=== PATIENT | male | born 1960 | race Caucasian/White ===

== ENCOUNTER 2024-09-13 14:10 | Inpatient (IN) ==
--- NOTE | 2024-09-13 14:44 | DR.SOBA ---
HPI Time Seen Time Seen by Provider: 09/13/24 14:44 HPI Comment HPI Comment: Patient with complaint of shortness of breath and feeling weak since . Worsening and family forced him to come into the ER. COVID-19 Coronavirus risk:travel/contact w/high risk person: No Has patient experienced Coronavirus symptoms: No PMH Travel Risk Coronavirus risk:travel/contact w/high risk person: No Has patient experienced Coronavirus symptoms: No ROS Review of Systems Constitutional: No Symptoms Reported Eyes: No Symptoms Reported ENTM: No Symptoms Reported Respiratoy: See HPI Cardiovascular: No Symptoms Reported Gastrointestinal/Abdominal: No Symptoms Reported Genitourinary: No Symptoms Reported Neurological: No Symptoms Reported Musculoskeletal: No Symptoms Reported Integumentary: No Symptoms Reported Hematologic/Lymphatic: No Symptoms Reported Endocrine: No Symptoms Reported Psychiatric: No Symptoms Reported All Other Systems: Reviewed and Negative PE Vital Signs Vitals: Vital Signs Temperature 98.1 F Pulse Rate 132 Pulse Rate 130 Pulse Rate 130 Pulse Rate 129 Pulse Rate 125 Pulse Rate 128 Pulse Rate 127 Pulse Rate 120 Pulse Rate 131 Pulse Rate 116 Pulse Rate 106 Pulse Rate 125 Pulse Rate 134 Pulse Rate 88 Pulse Rate 87 Pulse Rate 86 Pulse Rate 111 Pulse Rate 125 Pulse Rate 106 Respiratory Rate 29 Respiratory Rate 32 Respiratory Rate 28 Respiratory Rate 23 Respiratory Rate 27 Respiratory Rate 38 Respiratory Rate 22 Respiratory Rate 16 Respiratory Rate 18 Respiratory Rate 22 Respiratory Rate 29 Respiratory Rate 26 Respiratory Rate 29 Respiratory Rate 31 Respiratory Rate 31 Respiratory Rate 28 Respiratory Rate 34 Respiratory Rate 24 Blood Pressure 105/68 Blood Pressure 120/71 Blood Pressure 127/82 Blood Pressure 127/82 Blood Pressure 124/67 Blood Pressure 127/60 Blood Pressure 143/64 Blood Pressure 133/73 O2 Sat by Pulse Oximetry 96 O2 Sat by Pulse Oximetry 96 O2 Sat by Pulse Oximetry 94 O2 Sat by Pulse Oximetry 96 O2 Sat by Pulse Oximetry 95 O2 Sat by Pulse Oximetry 86 O2 Sat by Pulse Oximetry 95 O2 Sat by Pulse Oximetry 90 O2 Sat by Pulse Oximetry 99 O2 Sat by Pulse Oximetry 99 O2 Sat by Pulse Oximetry 100 O2 Sat by Pulse Oximetry 100 O2 Sat by Pulse Oximetry 100 O2 Sat by Pulse Oximetry 100 O2 Sat by Pulse Oximetry 100 O2 Sat by Pulse Oximetry 100 O2 Sat by Pulse Oximetry 100 O2 Sat by Pulse Oximetry 85 General Limitations: No Limitations General Appearance: Alert and In No Apparent Distress Head Head Exam: Normal Inspection Eyes Eye exam: Normal Appearance ENT ENT Exam: Normal Exam Neck Neck Exam: Normal Inspection Chest Chest Inspection: Normal Inspection Respiratory Respiratory Exam: Normal Lung Sounds Bilat Respiratory Exam: Right: Decreased Breath Sounds and Lower: Decreased Breath Sounds Cardiovascular Cardiovascular Exam: Regular Rate and Normal Rhythm Abdominal Exam Abdominal Exam: Normal Inspection, Normal Bowel Sounds and Soft Extremities Extremities Exam: Normal Inspection Back Back Exam: Normal Inspection Neurologic Neurological Exam: Alert and Oriented X3 Psychiatric Psychiatric Exam: Normal Affect and Normal Mood Skin Skin Exam: Warm, Dry, Intact and Normal Color COURSE Consultation Consultation Comments: Discussed case with Dr. Dumont. Due to decreased renal function and current cardiac status as well as the pneumonia, we will admit the patient and Dr. Dumont is agreeable. ROR Labs Reviewed 09/13/24 14:52 09/13/24 14:52 Laboratory: WBC 9.3 X10^3/uL (3.6-10.0) 09/13/24 14:52 RBC 3.98 X10^6/uL (4.7-6.0) L 09/13/24 14:52 Hgb 14.2 g/dL (13.5-18.0) 09/13/24 14:52 Hct 41.2 % (42.0-54.0) L 09/13/24 14:52 MCV 103.5 fL (80.0-100.0) H 09/13/24 14:52 MCH 35.8 pg (27.0-34.0) H 09/13/24 14:52 MCHC 34.5 g/dL (33.0-35.0) 09/13/24 14:52 RDW 14.6 % (11.6-16.5) 09/13/24 14:52 Plt Count 62 X10^3/uL (150.0-450.0) L 09/13/24 14:52 MPV 10.8 fL (7.4-11.0) 09/13/24 14:52 Neut % (Auto) 89.8 % (42.0-75.0) H 09/13/24 14:52 Lymph % (Auto) 6.9 % (21.0-51.0) L 09/13/24 14:52 [place] % (Auto) 2.8 % (0.0-13.0) 09/13/24 14:52 Eos % (Auto) 0.3 % (0.9-2.9) L 09/13/24 14:52 Baso % (Auto) 0.2 % (0.2-1.0) 09/13/24 14:52 Neut # (Auto) 8.3 x10^3/uL (2.2-4.8) H 09/13/24 14:52 Lymph # (Auto) 0.6 X10^3/uL (1.3-2.9) L 09/13/24 14:52 [place] # (Auto) 0.3 x10^3/uL (0.3-0.8) 09/13/24 14:52 Eos # (Auto) 0.0 x10^3/uL (0.0-0.2) 09/13/24 14:52 Baso # (Auto) 0.0 X10^3/uL (0.0-0.1) 09/13/24 14:52 Absolute Nucleated RBC 0.1 /100WBC 09/13/24 14:52 Sample Site Rr 09/13/24 15:26 ABG pH 7.570 (7.35-7.45) H* 09/13/24 15:26 ABG pCO2 26.0 mmHg (35.0-45.0) L 09/13/24 15:26 ABG pO2 65.0 mmHg (80.0-100.0) L 09/13/24 15:26 ABG HCO3 23.8 mmol/L (22-26) 09/13/24 15:26 ABG O2 Saturation 95.0 % (90-100) 09/13/24 15:26 ABG Base Excess 2.7 mmol/L (-2.0-2.0) H 09/13/24 15:26 Ziyad Test Pos 09/13/24 15:26 A-a Gradient 102.0 mmHg 09/13/24 15:26 FiO2 28.0 09/13/24 15:26 Blood Gas Comments Pt shivani well cdn 09/13/24 15:26 Sodium 126 mmol/L (136-145) L 09/13/24 14:52 Corrected Sodium 127 mmol/L (136-145) L 09/13/24 14:52 Potassium 3.6 mmol/L (3.5-5.1) 09/13/24 14:52 Chloride 87 mmol/L (98-107) L 09/13/24 14:52 Carbon Dioxide 29.1 mmol/L (21-32) 09/13/24 14:52 BUN 28 mg/dL (7-18) H 09/13/24 14:52 Creatinine 2.33 mg/dL (0.70-1.30) H 09/13/24 14:52 Est GFR (MDRD) Af Amer 36 (>60) L 09/13/24 14:52 Est GFR (MDRD) Non-Af 30 (>60) L 09/13/24 14:52 Glucose 157 mg/dL (65-99) H 09/13/24 14:52 Lactic Acid 2.3 mmol/L (0.4-2.0) H 09/13/24 17:08 Calcium 9.0 mg/dL (8.5-10.1) 09/13/24 14:52 Corrected Calcium 10.7 mg/dL (8.5-10.1) H 09/13/24 14:52 Magnesium 2.6 mg/dL (2.0-2.9) 09/13/24 14:52 Total Bilirubin 1.70 mg/dL (0.2-1.0) H 09/13/24 14:52 AST 241 Units/L (15-37) H 09/13/24 14:52 ALT 126 Units/L (12-78) H 09/13/24 14:52 Alkaline Phosphatase 84 Units/L (46-116) 09/13/24 14:52 C-Reactive Protein 323.90 mg/L (0-3.0) H 09/13/24 14:52 B-Natriuretic Peptide 246 pg/mL (0-79) H 09/13/24 14:52 Total Protein 7.5 g/dL (6.4-8.2) 09/13/24 14:52 Albumin 1.9 g/dL (3.4-5.0) L 09/13/24 14:52 Globulin 5.6 g/dL (2.5-4.5) H 09/13/24 14:52 Albumin/Globulin Ratio 0.3 Ratio (1.1-2.1) L 09/13/24 14:52 Specimen Type Clean catch urine 09/13/24 19:29 Urine Color Yellow (YELLOW) 09/13/24 19: Urine Appearance Hazy (CLEAR) 09/13/24 19: Urine pH 6.0 (5.0 - 8.0) 09/13/24 19: Ur Specific [place] 1.020 (1.000-1.030) 09/13/24 19: Urine Protein 3+ (NEGATIVE) 09/13/24 19: Urine Glucose (UA) Negative (NEGATIVE) 09/13/24 19: Urine Ketones Negative (NEGATIVE) 09/13/24 19: Urine Blood 5+ (NEGATIVE) 09/13/24 19: Urine Nitrite Negative (NEGATIVE) 09/13/24 19: Urine Bilirubin Negative (NEGATIVE) 09/13/24 19: Urine Urobilinogen 2+ (NORMAL) 09/13/24 19: Ur Leukocyte Esterase Negative (NEGATIVE) 09/13/24 19: Urine RBC 0-2 /HPF (0-3) 09/13/24 19: Urine WBC 0-2 /HPF (0-5) 09/13/24 19:29 Ur Squamous Epith Cells Rare /HPF (NEGATIVE) 09/13/24 19: Amorphous Sediment 1+ /HPF (NEGATIVE) 09/13/24 19: Urine Bacteria Trace /HPF (NEGATIVE) 09/13/24 19: Granular Casts Moderate /LPF (NEGATIVE) 09/13/24 19:29 Ur Culture Indicated? No/not indicated 09/13/24 19:29 SARS-CoV-2 (PCR) Negative (NEGATIVE) 09/13/24 14:56 Influenza Type A (PCR) Negative (NEGATIVE) 09/13/24 14:56 Influenza Type B (PCR) Negative (NEGATIVE) 09/13/24 14:56 RSV (PCR) Negative (NEGATIVE) 09/13/24 14:56 Opioid Opioid Risk Tool Age (Antwon box if 16-45): No History of Preadolescent Sexual Abuse: No Total: 0 Total Score Risk Category: Low Risk Copyright: Jerad MARIN predicting aberrant behaviors Discharge Plan Discharge Plan Patient Disposition: 01 HOME, SELF-CARE Condition: Stable Prescriptions: No Action atorvastatin 20 mg tablet 20 mg PO QPM aspirin 81 mg tablet,delayed release (DR/EC) 81 mg PO QDAY losartan 25 mg tablet 25 mg PO QDAY folic acid 1 mg tablet 1 mg PO QDAY dorzolamide-timolol 22.3-6.8 mg/mL drops 1 drp OPHTHALMIC (EYE) BID Health Concerns: Post Hospitalization: new medications and changes needed to prevent readmission or further decline. Pt educated and given instructions on all concerns. Plan of Treatment: Continue with present treatment and follow up plan. Pt is to keep follow up appointment as instructed and take medications as ordered. Follow ups/Referrals Follow ups/Referrals: Allan Shah MD [Primary Care Provider] - 3 days Instructions Stand Alone Forms: Find Help Web Site, Post Hospital Follow Up Care
[2024-09-13 15:07] LABS: BASOPHILS % (AUTO) 0.2 % (0.2-1.0); EOSINOPHILS % (AUTO) 0.3 % (0.9-2.9); HEMATOCRIT 41.2 % (42.0-54.0); HEMOGLOBIN 14.2 g/dL (13.5-18.0); LYMPHOCYTES # (AUTO) 0.6 X10^3/uL (1.3-2.9); LYMPHOCYTES % (AUTO) 6.9 % (21.0-51.0); MEAN CORPUSCULAR HEMOGLOBIN 35.8 pg (27.0-34.0); MEAN CORPUSCULAR HGB CONC 34.5 g/dL (33.0-35.0); MEAN CORPUSCULAR VOLUME 103.5 fL (80.0-100.0); MEAN PLATELET VOLUME 10.8 fL (7.4-11.0); MONOCYTES # (AUTO) 0.3 x10^3/uL (0.3-0.8); MONOCYTES % (AUTO) 2.8 % (0.0-13.0); NEUTROPHILS # (AUTO) 8.3 x10^3/uL (2.2-4.8); NEUTROPHILS % (AUTO) 89.8 % (42.0-75.0); PLATELET COUNT 62 X10^3/uL (150.0-450.0); RED BLOOD COUNT 3.98 X10^6/uL (4.7-6.0); RED CELL DISTRIBUTION WIDTH 14.6 % (11.6-16.5); WHITE BLOOD COUNT 9.3 X10^3/uL (3.6-10.0)
[2024-09-13] MEDS: MAGNESIUM SULFATE 1 GRAM/100 mL PREMIX 1 G/100 ML BAG IV ONE (15:18)
[2024-09-13] MEDS: NS 500 ML IV 500 ML IV ONE (15:18)
[2024-09-13 15:22] LABS: ALBUMIN 1.9 g/dL (3.4-5.0); CARBON DIOXIDE 29.1 mmol/L (21-32); COR CA(FOR HYPOALB) 10.7 mg/dL (8.5-10.1); CREATININE 2.33 mg/dL (0.70-1.30); MAGNESIUM 2.6 mg/dL (2.0-2.9); POTASSIUM 3.6 mmol/L (3.5-5.1); TOTAL PROTEIN 7.5 g/dL (6.4-8.2)
--- NOTE | 2024-09-13 15:28 | EKG ---
Test Reason : irregular heart rate, weakness Blood Pressure : */* mmHG Vent. Rate : 138 BPM Atrial Rate : 138 BPM P-R Int : 124 ms QRS Dur : 74 ms QT Int : 342 ms P-R-T Axes : 52 36 43 degrees QTc Int : 518 ms Sinus tachycardia with frequent and consecutive atrial and ventricular complexes Septal infarct , age undetermined Abnormal ECG No previous ECGs available Confirmed by Ruben Israel ([id number]) on 09/18/2024 10:19:04 AM Referred By: Confirmed By: Ruben Israel
[2024-09-13 15:35] LABS: ABG BASE EXCESS 2.7 mmol/L (-2.0-2.0); ABG HCO3 23.8 mmol/L (22-26)
[2024-09-13 15:36] LABS: ABG ALLEN TEST POS
[2024-09-13] MEDS ORDERED: LOPRESSOR INJ 5 MG AMP ONE ×2 (15:36→16:49)
[2024-09-13] MEDS: LOPRESSOR INJ 5 MG AMP IVP ONE ×2 (15:54→16:53)
[2024-09-13] MEDS ORDERED: NS 1,000 ML IV 1,000 ML ONE (17:20)
[2024-09-13] MEDS: ZOSYN VIAL 3.375 GRAMS 3.375 G in NS 100 ML IV 100 ML IV ONE (17:20)
[2024-09-13] MEDS ORDERED: ZOSYN VIAL 3.375 GRAMS IV ONE (17:20)
[2024-09-13] MEDS ORDERED: NS 100 ML IV 100 ML ONE (17:21)
--- NOTE | 2024-09-13 18:13 | CT ---
EXAM: CHEST W/O CON HISTORY: appears cyanotic around lips and complains of generalized weakness and "feeling bad" states he h as been confused, trouble breathing and pain with deep breaths.; COMPARISON: None. TECHNIQUE: Nonenhanced spiral CT imaging was performed through the chest and axial, coronal, and sagittal CT walter ges were generated. FINDINGS: There is emphysema especially in the upper lobes. There is opacity in the right base suggestive of p neumonia. There are reactive size mediastinal and hilar lymph nodes. Heart size is normal. There i s atherosclerosis LAD and RCA. Ascending aorta measures 3.5 cm in diameter. There is no pleural eff usion. Upper abdominal structures are grossly unremarkable. There is no worrisome bone marrow lesio n. IMPRESSION: Right lower lobe pneumonia. THIS IS AN ELECTRONICALLY VERIFIED FINAL REPORT 09/13/2024 6:03 PM - Electronically signed by Ilir Ochoa MD
[2024-09-13] MEDS: NS 1,000 ML IV 1,000 ML IV ONE ×2 (19:00→19:18)
[2024-09-13 19:51] LABS: BILIRUBIN,URINE NEGATIVE (NEGATIVE); BLOOD/HEMOGLOBIN,URINE 5+ (NEGATIVE); GLUCOSE, URINE NEGATIVE (NEGATIVE); KETONES,URINE NEGATIVE (NEGATIVE); LEUKOCYTE ESTERASE ,URINE NEGATIVE (NEGATIVE); NITRITES,URINE NEGATIVE (NEGATIVE); PROTEIN,URINE 3+ (NEGATIVE); UROBILINOGEN,URINE 2+ (NORMAL)
[2024-09-13] MEDS ORDERED: TUSSIONEX PENNKINETIC SUSP PO PRN (19:57)
[2024-09-13 20:02] LABS: APPEARANCE,URINE HAZY (CLEAR); BACTERIA,URINE TRACE /HPF (NEGATIVE); COLOR,URINE YELLOW (YELLOW); RBC,URINE 0-2 /HPF (0-3); SQUAMOUS EPITHELIAL CELL,UR RARE /HPF (NEGATIVE)
[2024-09-13 20:03] LABS: GRANULAR CASTS,URINE MODERATE /LPF (NEGATIVE)
[2024-09-13] MEDS: ROBITUSSIN DM PO SCH (21:27)
[2024-09-13] MEDS: ZOSYN VIAL 3.375 GRAMS 3.375 G in NS 100 ML IV 100 ML IV SCH (21:28)
[2024-09-13] MEDS ORDERED: DUONEB 0.5 MG/3 MG (3 mL) NEB ONE (21:32)
[2024-09-13] MEDS ORDERED: PULMICORT NEB TX 0.5 MG NEB ONE (21:33)
[2024-09-13] MEDS: PULMICORT NEB TX 0.5 MG NEB SCH (21:48)
[2024-09-13] MEDS: DUONEB 0.5 MG/3 MG (3 mL) NEB SCH (21:49)
[2024-09-13] MEDS: NS 1,000 ML IV 1,000 ML IV SCH (22:15)
--- NOTE | 2024-09-13 22:32 | RAD ---
PROCEDURE: Chest X-ray 1 View.HISTORY: Dyspnea.TECHNIQUE: AP portable view.COMPARISON: None .TECHNICAL QUALITY: Satisfactory.FINDINGS:Normal size heart.Mediastinum and hilar regions show no masses or lymphadenopathy.Normal central vascularity.No pulmonary consolidation, masses, pleural fluid, or pneumothorax.No acute bony abnormality.IMPRESSION:No evidence of active cardiopulmonary disease.THIS IS AN ELECTRONICALLY VERIFIED FINAL [id number]/2024 10:23 PM - Electronically signed by Agustin Zee MD
--- NOTE | 2024-09-13 23:02 | EKG ---
Test Reason : hr high Blood Pressure : */* mmHG Vent. Rate : 131 BPM Atrial Rate : * BPM P-R Int : * ms QRS Dur : 86 ms QT Int : 376 ms P-R-T Axes : * 49 99 degrees QTc Int : 555 ms Atrial fibrillation with rapid ventricular response Nonspecific T wave abnormality Abnormal ECG When compared with ECG of 13-SEP-2024 15:25, (Unconfirmed) Atrial fibrillation has replaced Sinus rhythm Criteria for Septal infarct are no longer present T wave amplitude has decreased in Inferior leads Nonspecific T wave abnormality, worse in Anterolateral leads Confirmed by Jarred Ledbetter MD ([id number]) on 09/14/2024 7:48:43 AM Referred By: Confirmed By: Jarred Ledbetter MD
[2024-09-13] MEDS: CARDIZEM INJ 125 MG VIAL 125 MG in NS 100 ML IV 100 ML IV PRN (23:28)
[2024-09-13] MEDS: CARDIZEM INJ 50 MG VIAL IVP ONE (23:28)
[2024-09-13] MEDS: ELIQUIS PO SCH (23:42)
[2024-09-14] MEDS: NS 250 ML IV 25 ML IV PRN (06:39)
[2024-09-14 06:42] LABS: BASOPHILS % (AUTO) 0.2 % (0.2-1.0); EOSINOPHILS % (AUTO) 0.2 % (0.9-2.9); HEMATOCRIT 34.5 % (42.0-54.0); LYMPHOCYTES # (AUTO) 0.5 X10^3/uL (1.3-2.9); LYMPHOCYTES % (AUTO) 7.6 % (21.0-51.0); MEAN CORPUSCULAR HEMOGLOBIN 35.9 pg (27.0-34.0); MEAN CORPUSCULAR HGB CONC 34.9 g/dL (33.0-35.0); MEAN CORPUSCULAR VOLUME 102.8 fL (80.0-100.0); MEAN PLATELET VOLUME 10.7 fL (7.4-11.0); MONOCYTES # (AUTO) 0.1 x10^3/uL (0.3-0.8); MONOCYTES % (AUTO) 2.3 % (0.0-13.0); NEUTROPHILS # (AUTO) 5.8 x10^3/uL (2.2-4.8); NEUTROPHILS % (AUTO) 89.7 % (42.0-75.0); PLATELET COUNT 50 X10^3/uL (150.0-450.0); RED BLOOD COUNT 3.36 X10^6/uL (4.7-6.0); RED CELL DISTRIBUTION WIDTH 14.6 % (11.6-16.5); WHITE BLOOD COUNT 6.4 X10^3/uL (3.6-10.0)
[2024-09-14 06:57] LABS: ALBUMIN 1.4 g/dL (3.4-5.0); CARBON DIOXIDE 26.4 mmol/L (21-32); COR CA(FOR HYPOALB) 10.1 mg/dL (8.5-10.1); CREATININE 1.8 mg/dL (0.70-1.30); POTASSIUM 3.1 mmol/L (3.5-5.1)
--- NOTE | 2024-09-14 07:11 | RAD ---
EXAMINATION: CHEST, 1 VIEW HISTORY: PNEUMONIA; GERD, HTN, RENAL DISEASE SX: PROSTATECTOMY . COMPARISON STUDY: Chest x-ray 09/13/2024 TECHNIQUE: Single portable AP view chest FINDINGS: Lungs are expanded. Dense alveolar infiltrates in the right upper and lower lung banda. Left lung is clear. Heart size and pulmonary vascular pattern appear normal. CP angles are sharp. Bones are intact. IMPRESSION: Dense infiltrates in the right lung. THIS IS AN ELECTRONICALLY VERIFIED FINAL REPORT 09/14/2024 7:08 AM - Electronically signed by Veronica Fowler MD
[2024-09-14] MEDS: XOPENEX 1.25 MG/3 ML NEBULE NEB SCH (09:05)
[2024-09-14] MEDS: K-DUR TAB 20 MEQ PO SCH (09:16)
[2024-09-14] MEDS: CARDIZEM CD 240 MG 24-HR PO SCH (09:16)
[2024-09-14] MEDS ORDERED: CONSULT PHARMACY - POTASSIUM & MAGNESIUM XX SCH (10:00)
[2024-09-14] MEDS: NS + KCL 20 MEQ/L 1,000 ML IV SCH (10:56)
[2024-09-14] MEDS: PROTONIX INJ 40 MG VIAL IVP SCH (10:56)
[2024-09-14] MEDS: TYLENOL 325 MG TAB PO PRN (11:56)
[2024-09-14] MEDS: CONSULT PHARMACY - POTASSIUM & MAGNESIUM XX SCH (17:25)
--- NOTE | 2024-09-14 21:35 | DR.H&P ---
H&P History & Physical for Day of: H&P Date: 09/14/24 Chief Complaint Chief Complaint: "They said I was an extremely sick fella" History of Present Illness History of Present Illness: Veronica Zamudio is a 63-year-old white male hospitalized after a family request due to acute illness. Symptoms began approximately 2-3 days prior to hospitalization, described as a chest cold. Initial presentation included low oxygen saturation and pneumonia confirmed via CT scan. He was extremely dehydrated with electrolyte imbalances. There was also some pain noted in the rib area likely due to the pneumonia. Veronica stated that he was 'hard-headed' regarding previous treatment. As of now, he reports feeling better with improved oxygen levels and is being treated for atrial fibrillation. He has lost appetite and is experiencing some swelling in the feet, likely due to dehydration. Past Medical History Past Medical History: GERD, Hypertension and Renal Disease Past Surgical History Additional Surgical History: Status post-prostatectomy for prostate cancer over 3 years ago. Family History Family Medical History: Diabetes Mellitus, Coronary Artery Disease and Hypertension Social History Does patient currently use any type of tobacco product: No Have you used tobacco products in the last 12 months: No Type of Tobacco Use: None Does any household member use tobacco: No Alcohol Use: None Drug Use: None Medications Home Medications: Home Medications Medication Instructions Recorded Confirmed Type aspirin 81 mg tablet,delayed 81 mg PO QDAY 09/13/24 09/13/24 History release atorvastatin 20 mg tablet 20 mg PO QPM 09/13/24 09/13/24 History dorzolamide 22.3 mg-timolol 6.8 1 drp ophthalmic (eye) BID 09/13/24 09/13/24 History mg/mL eye drops folic acid 1 mg tablet 1 mg PO QDAY 09/13/24 09/13/24 History losartan 25 mg tablet 25 mg PO QDAY 09/13/24 09/13/24 History Allergies Allergies Allergy/AdvReac Type Severity Reaction Status Date / Time No Known Allergies Allergy Verified 09/13/24 14:44 Labs 09/14/24 06:35 09/14/24 06:35 Labs: Laboratory WBC 6.4 X10^3/uL (3.6-10.0) 09/14/24 06:35 RBC 3.36 X10^6/uL (4.7-6.0) L 09/14/24 06:35 Hgb 12.0 g/dL (13.5-18.0) L D 09/14/24 06:35 Hct 34.5 % (42.0-54.0) L 09/14/24 06:35 MCV 102.8 fL (80.0-100.0) H 09/14/24 06:35 MCH 35.9 pg (27.0-34.0) H 09/14/24 06:35 MCHC 34.9 g/dL (33.0-35.0) 09/14/24 06:35 RDW 14.6 % (11.6-16.5) 09/14/24 06:35 Plt Count 50 X10^3/uL (150.0-450.0) L 09/14/24 06:35 MPV 10.7 fL (7.4-11.0) 09/14/24 06:35 Neut % (Auto) 89.7 % (42.0-75.0) H 09/14/24 06:35 Lymph % (Auto) 7.6 % (21.0-51.0) L 09/14/24 06:35 [place] % (Auto) 2.3 % (0.0-13.0) 09/14/24 06:35 Eos % (Auto) 0.2 % (0.9-2.9) L 09/14/24 06:35 Baso % (Auto) 0.2 % (0.2-1.0) 09/14/24 06:35 Neut # (Auto) 5.8 x10^3/uL (2.2-4.8) H 09/14/24 06:35 Lymph # (Auto) 0.5 X10^3/uL (1.3-2.9) L 09/14/24 06:35 [place] # (Auto) 0.1 x10^3/uL (0.3-0.8) L 09/14/24 06:35 Eos # (Auto) 0.0 x10^3/uL (0.0-0.2) 09/14/24 06:35 Baso # (Auto) 0.0 X10^3/uL (0.0-0.1) 09/14/24 06:35 Absolute Nucleated RBC 0.0 /100WBC 09/14/24 06:35 Sample Site Rr 09/13/24 15:26 ABG pH 7.570 (7.35-7.45) H* 09/13/24 15:26 ABG pCO2 26.0 mmHg (35.0-45.0) L 09/13/24 15: ABG pO2 65.0 mmHg (80.0-100.0) L 09/13/24 15:26 ABG HCO3 23.8 mmol/L (22-26) 09/13/24 15:26 ABG O2 Saturation 95.0 % (90-100) 09/13/24 15: ABG Base Excess 2.7 mmol/L (-2.0-2.0) H 09/13/24 15:26 Ziyad Test Pos 09/13/24 15:26 A-a Gradient 102.0 mmHg 09/13/24 15:26 FiO2 28.0 09/13/24 15:26 Blood Gas Comments Pt shivani well cdn 09/13/24 15:26 Sodium 129 mmol/L (136-145) L 09/14/24 06:35 Corrected Sodium 129 mmol/L (136-145) L 09/14/24 06:35 Potassium 3.1 mmol/L (3.5-5.1) L 09/14/24 06:35 Chloride 94 mmol/L (98-107) L 09/14/24 06:35 Carbon Dioxide 26.4 mmol/L (21-32) 09/14/24 06:35 BUN 24 mg/dL (7-18) H 09/14/24 06:35 Creatinine 1.80 mg/dL (0.70-1.30) H 09/14/24 06:35 Est GFR (MDRD) Af Amer 49 (>60) L 09/14/24 06:35 Est GFR (MDRD) Non-Af 41 (>60) L 09/14/24 06:35 Glucose 111 mg/dL (65-99) H 09/14/24 06:35 Lactic Acid 2.0 mmol/L (0.4-2.0) 09/13/24 20:58 Calcium 8.0 mg/dL (8.5-10.1) L 09/14/24 06:35 Corrected Calcium 10.1 mg/dL (8.5-10.1) 09/14/24 06:35 Magnesium 2.5 mg/dL (2.0-2.9) 09/14/24 06:35 Total Bilirubin 1.50 mg/dL (0.2-1.0) H 09/14/24 06:35 AST 167 Units/L (15-37) H 09/14/24 06:35 ALT 89 Units/L (12-78) H 09/14/24 06:35 Alkaline Phosphatase 64 Units/L (46-116) 09/14/24 06:35 C-Reactive Protein 323.90 mg/L (0-3.0) H 09/13/24 14:52 B-Natriuretic Peptide 246 pg/mL (0-79) H 09/13/24 14:52 Total Protein 6.0 g/dL (6.4-8.2) L 09/14/24 06:35 Albumin 1.4 g/dL (3.4-5.0) L 09/14/24 06:35 Globulin 4.6 g/dL (2.5-4.5) H 09/14/24 06:35 Albumin/Globulin Ratio 0.3 Ratio (1.1-2.1) L 09/14/24 06:35 Specimen Type Clean catch urine 09/13/24 19: Urine Color Yellow (YELLOW) 09/13/24 19: Urine Appearance Hazy (CLEAR) 09/13/24 19:29 Urine pH 6.0 (5.0 - 8.0) 09/13/24 19:29 Ur Specific [place] 1.020 (1.000-1.030) 09/13/24 19:29 Urine Protein 3+ (NEGATIVE) 09/13/24 19: Urine Glucose (UA) Negative (NEGATIVE) 09/13/24 19: Urine Ketones Negative (NEGATIVE) 09/13/24 19: Urine Blood 5+ (NEGATIVE) 09/13/24 19: Urine Nitrite Negative (NEGATIVE) 09/13/24 19: Urine Bilirubin Negative (NEGATIVE) 09/13/24 19: Urine Urobilinogen 2+ (NORMAL) 09/13/24 19: Ur Leukocyte Esterase Negative (NEGATIVE) 09/13/24 19: Urine RBC 0-2 /HPF (0-3) 09/13/24 19: Urine WBC 0-2 /HPF (0-5) 09/13/24 19:29 Ur Squamous Epith Cells Rare /HPF (NEGATIVE) 09/13/24 19:29 Amorphous Sediment 1+ /HPF (NEGATIVE) 09/13/24 19:29 Urine Bacteria Trace /HPF (NEGATIVE) 09/13/24 19:29 Granular Casts Moderate /LPF (NEGATIVE) 09/13/24 19:29 Ur Culture Indicated? No/not indicated 09/13/24 19:29 SARS-CoV-2 (PCR) Negative (NEGATIVE) 09/13/24 14:56 Influenza Type A (PCR) Negative (NEGATIVE) 09/13/24 14:56 Influenza Type B (PCR) Negative (NEGATIVE) 09/13/24 14:56 RSV (PCR) Negative (NEGATIVE) 09/13/24 14:56 Review of Systems Constitutional: Fever, Chills, Sweats, Weakness and Malaise Eyes: No Symptoms Reported ENT: Nose Discharge and Nose Congestion Respiratory: Cough, Shortness of Breath, SOB with Excertion, Pleuritic Pain and Sputum; denies Hemoptysis Cardiovascular: Palpitations, Orthopnea and Light Headedness Gastrointestinal: No Symptoms Reported Genitourinary: No Symptoms Reported Musculoskeletal: No Symptoms Reported Skin: No Symptoms Reported Neurological: Weakness, Incoordination and Confusion Physical Exam Vital Signs: Vital Signs Temperature 99.0 F Temperature 98.6 F Pulse Rate 118 Pulse Rate 104 Pulse Rate 101 Pulse Rate 88 Pulse Rate 88 Pulse Rate 93 Pulse Rate 80 Pulse Rate 85 Pulse Rate 80 Pulse Rate 80 Pulse Rate 79 Respiratory Rate 32 Respiratory Rate 29 Respiratory Rate 28 Respiratory Rate 28 Respiratory Rate 28 Respiratory Rate 23 Respiratory Rate 25 Respiratory Rate 18 Respiratory Rate 22 Respiratory Rate 25 Blood Pressure 137/69 Blood Pressure 140/76 Blood Pressure 133/80 Blood Pressure 119/73 Blood Pressure 110/73 Blood Pressure 107/70 O2 Sat by Pulse Oximetry 95 O2 Sat by Pulse Oximetry 94 O2 Sat by Pulse Oximetry 94 O2 Sat by Pulse Oximetry 94 O2 Sat by Pulse Oximetry 94 O2 Sat by Pulse Oximetry 94 O2 Sat by Pulse Oximetry 93 O2 Sat by Pulse Oximetry 95 O2 Sat by Pulse Oximetry 93 O2 Sat by Pulse Oximetry 92 O2 Sat by Pulse Oximetry 94 Oriented: Normal, Time, Person and Place Eyes: Normal Nose: Normal Respiratory: RLL Diminished and RLL Rhonchi Cardiovascular: Tachycardia and Irregular Auscultation: Bowel Sounds: Normal Palpation: Normal Tenderness: Normal Skin: Decreased [place]urg[place] Musculoskeletal: Normal Psychiatric: Normal Mood Description: Calm Affect: Normal Speech Pattern: Clear and Appropriate Assessment/Plan (1) Right lower lobe pneumonia: Qualifiers: Pneumonia type: due to unspecified organism Qualified Code(s): J18.9 - Pneumonia, unspecified organism Status: Acute Plan: Follow-up with sputum cultures and continue IV Zosyn at this time. We will also continue jet nebs and inhaled budesonide. Patient's hypoxia has improved since admission. Continue supplemental O2 via nasal cannula at 2 L. (2) Atrial fibrillation with RVR: Narrative Support Text: The patient's atrial fibrillation has improved since yesterday. Status: Acute Plan: The patient will receive Cardizem 240 mg p.o. daily starting this morning and we will start weaning him off the IV Cardizem. Continue Eliquis at this time. (3) Dehydration: Narrative Support Text: The patient's hydration status has improved since admission. Status: Acute Plan: Continue IV normal saline hydration at this time. (4) Hyponatremia: Status: Acute Plan: Continue hydration therapy with normal saline IV fluid. Repeat CMP tomorrow morning to recheck sodium level. (5) Essential hypertension: Status: Acute Plan: Resume the patient's losartan 25 mg daily. He is also receiving Cardizem 240 mg p.o. daily for atrial fibrillation. (6) Thrombocytopenia: Status: Acute Plan: Follow daily CBCs to monitor for platelet count improvement. (7) Elevated LFTs: Narrative Support Text: Decreased LFTs since admission yesterday. Status: Acute Plan: Monitor for continued improvement. (8) Hypoalbuminemia: Status: Acute Plan: The patient did eat breakfast this morning we will continue to enco urage him to eat and if he starts showing signs of generalized edema will have him IV albumin if needed. (9) Elevated brain natriuretic peptide (BNP) level: Status: Acute Plan: Repeat BMP again tomorrow as well as chest x-ray. We will diurese if needed. (10) Glaucoma: Status: Acute Plan: Continue dorzolamidetimolol ophthalmic drops. (11) Hyperglycemia: Status: Acute Plan: Check hemoglobin A1c for tomorrow morning. (12) History of malignant neoplasm of prostate: Status: Acute (13) Hx of prostatectomy: Status: Acute Review H&P Reviewed: Yes Patient was examined?: Yes
[2024-09-14] MEDS: COSOPT OPTH OP SCH (22:42)
[2024-09-15 05:38] LABS: BASOPHILS % (AUTO) 0.2 % (0.2-1.0); EOSINOPHILS % (AUTO) 0.3 % (0.9-2.9); HEMATOCRIT 34.3 % (42.0-54.0); HEMOGLOBIN 11.6 g/dL (13.5-18.0); LYMPHOCYTES # (AUTO) 0.4 X10^3/uL (1.3-2.9); LYMPHOCYTES % (AUTO) 6.4 % (21.0-51.0); MEAN CORPUSCULAR HEMOGLOBIN 35.1 pg (27.0-34.0); MEAN CORPUSCULAR HGB CONC 33.8 g/dL (33.0-35.0); MEAN CORPUSCULAR VOLUME 103.7 fL (80.0-100.0); MEAN PLATELET VOLUME 10.6 fL (7.4-11.0); MONOCYTES # (AUTO) 0.1 x10^3/uL (0.3-0.8); MONOCYTES % (AUTO) 0.9 % (0.0-13.0); NEUTROPHILS # (AUTO) 5.5 x10^3/uL (2.2-4.8); NEUTROPHILS % (AUTO) 92.2 % (42.0-75.0); PLATELET COUNT 56 X10^3/uL (150.0-450.0); RED BLOOD COUNT 3.31 X10^6/uL (4.7-6.0); RED CELL DISTRIBUTION WIDTH 14.6 % (11.6-16.5); WHITE BLOOD COUNT 5.9 X10^3/uL (3.6-10.0)
[2024-09-15 05:54] LABS: ALBUMIN 1.3 g/dL (3.4-5.0); CARBON DIOXIDE 25.5 mmol/L (21-32); COR CA(FOR HYPOALB) 10.2 mg/dL (8.5-10.1); CREATININE 1.65 mg/dL (0.70-1.30); HEMOGLOBIN A1C 6.9 %; POTASSIUM 3.4 mmol/L (3.5-5.1); TOTAL PROTEIN 6.1 g/dL (6.4-8.2)
[2024-09-15 05:55] LABS: MAGNESIUM 2.5 mg/dL (2.0-2.9)
--- NOTE | 2024-09-15 06:04 | RAD ---
EXAMINATION:CHEST, 1 VIEWHISTORY:PNEUMONIA; .COMPARISON STUDY:Chest x-ray 09/14/2024TECHNIQUE:Single frontal erect view of the chestFINDINGS:Increased dense alveolar infiltrate throughout the right lung field. Streaky opacity left pulmonary base. Heart size and pulmonary vascular pattern appear normal. CP angles are sharp. Bones are intact.IMPRESSION:Increased dense alveolar infiltrates throughout the right lung field.THIS IS AN ELECTRONICALLY VERIFIED FINAL [id number]/2024 6:01 AM - Electronically signed by Veronica Fowler MD
[2024-09-15 06:16] LABS: BAND NEUTROPHILS % 4 % (0-10); PLATELET MORPHOLOGY COMMENT NORMAL (NORMAL)
[2024-09-15] MEDS ORDERED: CONSULT PHARMACY - POTASSIUM & MAGNESIUM XX SCH (07:00)
[2024-09-15] MEDS: KLOR-CON 10 MEQ TAB PO SCH (08:49)
[2024-09-15] MEDS: FOLIC ACID TAB 1 MG PO SCH (09:15)
--- NOTE | 2024-09-15 12:17 | PCM.PROG ---
Progress Note Progress Note for Day of Date of Exam: 09/15/24 Subjective Subjective: Patient is a 63-year-old male admitted for right lower lobe pneumonia, A-fib, debilitation, and dehydration. This morning he is resting in bed. He reports feeling some improvement in his breathing. No acute events overnight. Labs/imaging: WBC 5.9, hemoglobin 11.6, platelets 56, sodium 133, potassium 3.4, creatinine 1.65, glucose 114, blood culture pending. Chest x-ray this morning was obtained that revealed increased density in the right lower lobe. AIT pending. Patient is currently on IV Zosyn. Will change to IV Levaquin 750 daily. Otherwise continue with current treatment plan. Continue closely monitor and follow-up labs/imaging. Past Medical Family Social History Allergies: Allergies No Known Allergies Allergy (Verified 09/13/24 14:44) Review of Systems ROS changes noted: see HPI Vital Signs and I&O's Vital Signs: Vital Signs Temperature 98.1 F Temperature 98.1 F Pulse Rate 94 Pulse Rate 101 Pulse Rate 100 Pulse Rate 100 Pulse Rate 94 Pulse Rate 112 Respiratory Rate 26 Respiratory Rate 27 Respiratory Rate 23 Respiratory Rate 25 Respiratory Rate 25 Blood Pressure 125/64 Blood Pressure 134/65 Blood Pressure 141/70 Blood Pressure 131/73 Blood Pressure 136/80 O2 Sat by Pulse Oximetry 98 O2 Sat by Pulse Oximetry 95 O2 Sat by Pulse Oximetry 94 O2 Sat by Pulse Oximetry 97 O2 Sat by Pulse Oximetry 95 O2 Sat by Pulse Oximetry 97 Intake and Output: Intake & Output 09/12/24 09/13/24 09/14/24 09/15/24 23:59 23:59 23:59 23:59 Intake Total 1120 / 1120 3432.1 / 3432.1 1000 / 1000 Balance 1120 / 1120 3432.1 / 3432.1 1000 / 1000 Physical Exam Oriented: Normal, Time, Person and Place Eyes: Normal Nose: Normal Respiratory: Diminished Cardiovascular: Normal Auscultation: Bowel Sounds: Normal Tenderness: Normal Skin: Decreased Turgur Musculoskeletal: Normal Psychiatric: Normal Mood Description: Calm Affect: Normal Speech Pattern: Clear and Appropriate Laboratory and Diagnostics 09/15/24 04:50 09/15/24 04:50 Labs: 09/13/24 17:17 Blood Blood Culture - Preliminary 09/13/24 17:08 Blood Blood Culture - Preliminary Laboratory WBC 5.9 X10^3/uL (3.6-10.0) 09/15/24 04:50 RBC 3.31 X10^6/uL (4.7-6.0) L 09/15/24 04:50 Hgb 11.6 g/dL (13.5-18.0) L 09/15/24 04:50 Hct 34.3 % (42.0-54.0) L 09/15/24 04:50 MCV 103.7 fL (80.0-100.0) H 09/15/24 04:50 MCH 35.1 pg (27.0-34.0) H 09/15/24 04:50 MCHC 33.8 g/dL (33.0-35.0) 09/15/24 04:50 RDW 14.6 % (11.6-16.5) 09/15/24 04:50 Plt Count 56 X10^3/uL (150.0-450.0) L 09/15/24 04:50 Plt Count Comment Decreased (ADEQUATE) 09/15/24 04:50 MPV 10.6 fL (7.4-11.0) 09/15/24 04:50 Neut % (Auto) 92.2 % (42.0-75.0) H 09/15/24 04:50 Lymph % (Auto) 6.4 % (21.0-51.0) L 09/15/24 04:50 [place] % (Auto) 0.9 % (0.0-13.0) 09/15/24 04:50 Eos % (Auto) 0.3 % (0.9-2.9) L 09/15/24 04:50 Baso % (Auto) 0.2 % (0.2-1.0) 09/15/24 04:50 Neut # (Auto) 5.5 x10^3/uL (2.2-4.8) H 09/15/24 04:50 Lymph # (Auto) 0.4 X10^3/uL (1.3-2.9) L 09/15/24 04:50 [place] # (Auto) 0.1 x10^3/uL (0.3-0.8) L 09/15/24 04:50 Eos # (Auto) 0.0 x10^3/uL (0.0-0.2) 09/15/24 04:50 Baso # (Auto) 0.0 X10^3/uL (0.0-0.1) 09/15/24 04:50 Absolute Nucleated RBC 0.1 /100WBC 09/15/24 04:50 Total Counted 100 09/15/24 04:50 Neutrophils % (Manual) 82 % (39-76) H 09/15/24 04:50 Band Neutrophils % 4 % (0-10) 09/15/24 04:50 Lymphocytes % (Manual) 12 % (13-43) L 09/15/24 04:50 Monocytes % (Manual) 2 % (4-9) L 09/15/24 04:50 Plt Morphology Comment Normal (NORMAL) 09/15/24 04:50 RBC Morphology Abnormal (NORMAL) 09/15/24 04:50 Macrocytosis Slight A 09/15/24 04:50 Sample Site Rr 09/13/24 15:26 ABG pH 7.570 (7.35-7.45) H* 09/13/24 15:26 ABG pCO2 26.0 mmHg (35.0-45.0) L 09/13/24 15:26 ABG pO2 65.0 mmHg (80.0-100.0) L 09/13/24 15:26 ABG HCO3 23.8 mmol/L (22-26) 09/13/24 15:26 ABG O2 Saturation 95.0 % (90-100) 09/13/24 15:26 ABG Base Excess 2.7 mmol/L (-2.0-2.0) H 09/13/24 15:26 Ziyad Test Pos 09/13/24 15:26 A-a Gradient 102.0 mmHg 09/13/24 15:26 FiO2 28.0 09/13/24 15:26 Blood Gas Comments Pt shivani well cdn 09/13/24 15:26 Sodium 133 mmol/L (136-145) L 09/15/24 04:50 Corrected Sodium 133 mmol/L (136-145) L 09/15/24 04:50 Potassium 3.4 mmol/L (3.5-5.1) L 09/15/24 04:50 Chloride 98 mmol/L (98-107) 09/15/24 04:50 Carbon Dioxide 25.5 mmol/L (21-32) 09/15/24 04:50 BUN 17 mg/dL (7-18) 09/15/24 04:50 Creatinine 1.65 mg/dL (0.70-1.30) H 09/15/24 04:50 Est GFR (MDRD) Af Amer 54 (>60) L 09/15/24 04:50 Est GFR (MDRD) Non-Af 45 (>60) L 09/15/24 04:50 Glucose 114 mg/dL (65-99) H 09/15/24 04:50 Hemoglobin A1c 6.9 % 09/15/24 04:50 Lactic Acid 2.0 mmol/L (0.4-2.0) 09/13/24 20:58 Calcium 8.0 mg/dL (8.5-10.1) L 09/15/24 04:50 Corrected Calcium 10.2 mg/dL (8.5-10.1) H 09/15/24 04:50 Magnesium 2.5 mg/dL (2.0-2.9) 09/15/24 04:50 Total Bilirubin 1.60 mg/dL (0.2-1.0) H 09/15/24 04:50 AST 148 Units/L (15-37) H 09/15/24 04:50 ALT 83 Units/L (12-78) H 09/15/24 04:50 Alkaline Phosphatase 63 Units/L (46-116) 09/15/24 04:50 C-Reactive Protein 323.90 mg/L (0-3.0) H 09/13/24 14:52 B-Natriuretic Peptide 103 pg/mL (0-79) H 09/15/24 04:50 Total Protein 6.1 g/dL (6.4-8.2) L 09/15/24 04:50 Albumin 1.3 g/dL (3.4-5.0) L 09/15/24 04:50 Globulin 4.8 g/dL (2.5-4.5) H 09/15/24 04:50 Albumin/Globulin Ratio 0.3 Ratio (1.1-2.1) L 09/15/24 04:50 Specimen Type Clean catch urine 09/13/24 19:29 Urine Color Yellow (YELLOW) 09/13/24 19:29 Urine Appearance Hazy (CLEAR) 09/13/24 19: Urine pH 6.0 (5.0 - 8.0) 09/13/24 19: Ur Specific [place] 1.020 (1.000-1.030) 09/13/24 19: Urine Protein 3+ (NEGATIVE) 09/13/24 19: Urine Glucose (UA) Negative (NEGATIVE) 09/13/24 19: Urine Ketones Negative (NEGATIVE) 09/13/24 19: Urine Blood 5+ (NEGATIVE) 09/13/24 19: Urine Nitrite Negative (NEGATIVE) 09/13/24 19: Urine Bilirubin Negative (NEGATIVE) 09/13/24: Urine Urobilinogen 2+ (NORMAL) 09/13/24 19: Ur Leukocyte Esterase Negative (NEGATIVE) 09/13/24 19: Urine RBC 0-2 /HPF (0-3) 09/13/24 19: Urine WBC 0-2 /HPF (0-5) 09/13/24 19: Ur Squamous Epith Cells Rare /HPF (NEGATIVE) 09/13/24 19: Amorphous Sediment 1+ /HPF (NEGATIVE) 09/13/24 19: Urine Bacteria Trace /HPF (NEGATIVE) 09/13/24 19: Granular Casts Moderate /LPF (NEGATIVE) 09/13/24 19: Ur Culture Indicated? No/not indicated 09/13/24 19:29 SARS-CoV-2 (PCR) Negative (NEGATIVE) 09/13/24 14:56 Influenza Type A (PCR) Negative (NEGATIVE) 09/13/24 14:56 Influenza Type B (PCR) Negative (NEGATIVE) 09/13/24 14:56 RSV (PCR) Negative (NEGATIVE) 09/13/24 14:56 Plan (1) Right lower lobe pneumonia: Status: Acute Qualifiers: Pneumonia type: due to unspecified organism Qualified Code(s): J18.9 - Pneumonia, unspecified organism Plan: Follow-up with sputum cultures and change IV Zosyn to IV Levaquin. We will also continue jet nebs and inhaled budesonide. Patient's hypoxia has improved since admission. Continue supplemental O2 via nasal cannula at 2 L. (2) Atrial fibrillation with RVR: Status: Acute Plan: The patient will receive Cardizem 240 mg p.o. daily starting this morning and we will start weaning him off the IV Cardizem. Continue Eliquis at this time. (3) Dehydration: Status: Acute Plan: Continue IV normal saline hydration at this time. (4) Hyponatremia: Status: Acute Plan: Continue hydration therapy with normal saline IV fluid. Repeat CMP tomorrow morning to recheck sodium level. (5) Essential hypertension: Status: Acute Plan: Resume the patient's losartan 25 mg daily. He is also receiving Cardizem 240 mg p.o. daily for atrial fibrillation. (6) Thrombocytopenia: Status: Acute Plan: Follow daily CBCs to monitor for platelet count improvement. (7) Elevated LFTs: Status: Acute Plan: Monitor for continued improvement. (8) Hypoalbuminemia: Status: Acute Plan: The patient did eat breakfast this morning we will continue to encourage him to eat and if he starts showing signs of generalized edema will have him IV albumin if needed. (9) Elevated brain natriuretic peptide (BNP) level: Status: Acute Plan: Repeat BMP again tomorrow as well as chest x-ray. We will diurese if needed. (10) Glaucoma: Status: Acute Plan: Continue dorzolamidetimolol ophthalmic drops. (11) Hyperglycemia: Status: Acute Plan: Check hemoglobin A1c for tomorrow morning. (12) History of malignant neoplasm of prostate: Status: Acute (13) Hx of prostatectomy: Status: Acute
[2024-09-15] MEDS: LEVAQUIN PREMIX IV 750 MG 750 MG/150 ML BAG IV SCH (16:48)
[2024-09-15] MEDS: LIPITOR TAB 20 MG PO SCH (21:01)
[2024-09-16 06:33] LABS: BASOPHILS % (AUTO) 0.1 % (0.2-1.0); EOSINOPHILS % (AUTO) 0.1 % (0.9-2.9); HEMOGLOBIN 11.7 g/dL (13.5-18.0); LYMPHOCYTES # (AUTO) 0.7 X10^3/uL (1.3-2.9); LYMPHOCYTES % (AUTO) 11.3 % (21.0-51.0); MEAN CORPUSCULAR HEMOGLOBIN 35.8 pg (27.0-34.0); MEAN CORPUSCULAR HGB CONC 34.6 g/dL (33.0-35.0); MEAN CORPUSCULAR VOLUME 103.6 fL (80.0-100.0); MEAN PLATELET VOLUME 10.2 fL (7.4-11.0); MONOCYTES # (AUTO) 0.1 x10^3/uL (0.3-0.8); MONOCYTES % (AUTO) 1.9 % (0.0-13.0); NEUTROPHILS # (AUTO) 5.2 x10^3/uL (2.2-4.8); NEUTROPHILS % (AUTO) 86.6 % (42.0-75.0); PLATELET COUNT 57 X10^3/uL (150.0-450.0); RED BLOOD COUNT 3.28 X10^6/uL (4.7-6.0); RED CELL DISTRIBUTION WIDTH 14.7 % (11.6-16.5)
[2024-09-16 06:42] LABS: ALANINE AMINOTRANSFERASE 50 Units/L (12-78); ALBUMIN 1.1 g/dL (3.4-5.0); ALKALINE PHOSPHATASE 61 Units/L (46-116); ASPARTATE AMINO TRANSFERASE 68 Units/L (15-37); BLOOD UREA NITROGEN 18 mg/dL (7-18); CALCIUM 8.1 mg/dL (8.5-10.1); CARBON DIOXIDE 26.1 mmol/L (21-32); CHLORIDE 103 mmol/L (98-107); COR CA(FOR HYPOALB) 10.4 mg/dL (8.5-10.1); CREATININE 1.36 mg/dL (0.70-1.30); GLUCOSE 103 mg/dL (65-99); POTASSIUM 3.9 mmol/L (3.5-5.1); SODIUM 135 mmol/L (136-145); TOTAL PROTEIN 5.8 g/dL (6.4-8.2); eGFR NON BLACK RACES 56 (>60)
--- NOTE | 2024-09-16 06:52 | RAD ---
EXAMINATION:CHEST, 1 VIEWHISTORY:PNEUMONIA; .COMPARISON STUDY:Chest x-ray 09/15/2024TECHNIQUE:Single frontal view of the chestFINDINGS:Persistent extensive alveolar infiltrate throughout the right lung field. Streaky opacity left lower lung. Mild cardiac silhouette enlargement. Normal pulmonary vascular pattern. Bones are unchanged.IMPRESSION:Persistent infiltrate throughout the right lung field. Streaky opacity left lower lung mild cardiac silhouette enlargement.THIS IS AN ELECTRONICALLY VERIFIED FINAL [id number] 6:49 AM - Electronically signed by Veronica Fowler MD
[2024-09-16] MEDS ORDERED: BUTT CREAM (COMPOUND) ONE (08:24)
[2024-09-16] MEDS: BUTT CREAM (COMPOUND) TOP PRN (08:35)
--- NOTE | 2024-09-16 11:06 | PCM.PROG ---
Progress Note Progress Note for Day of Date of Exam: 09/16/24 Subjective Subjective: Patient is a 63-year-old male admitted for right lower lobe pneumonia, A-fib, debilitation, and dehydration. This morning he is resting in bed. He reports breathing worsened and he was more short of breath. Overnight he acutely worsened and was placed on heated high flow oxygen. FiO2 69% currently. Labs/imaging: WBC 6.0, hemoglobin 11.7, platelets 57, sodium 135, potassium 3.9, creatinine 1.36, glucose 103, blood culture no growth to date. Chest x-ray this morning was obtained that revealed Persistent infiltrate throughout the right lung field. Streaky opacity left lower lung mild cardiac silhouette enlargement. AIT pending. Patient is currently on IV antibiotics Levaquin 750 daily. Will add IV solumedrol 40mg BID. Consult [facility] for further recommendations. Wean/titrate oxygen as tolerated. Otherwise continue with current treatment plan. Continue closely monitor and follow-up labs/imaging. Time spent for clinical assessment, reviewing labs/imaging, physical exam, decision making and documentation greater than 45 mins. Past Medical Family Social History Allergies: Allergies No Known Allergies Allergy (Verified 09/13/24 14:44) Review of Systems ROS changes noted: see HPI Vital Signs and I&O's Vital Signs: Vital Signs Temperature 97.9 F Pulse Rate 92 Pulse Rate 90 Pulse Rate 86 Pulse Rate 80 Respiratory Rate 28 Respiratory Rate 21 Respiratory Rate 21 Respiratory Rate 24 Blood Pressure 121/72 Blood Pressure 120/73 Blood Pressure 150/69 O2 Sat by Pulse Oximetry 94 O2 Sat by Pulse Oximetry 94 O2 Sat by Pulse Oximetry 93 O2 Sat by Pulse Oximetry 92 Intake and Output: Intake & Output 09/13/24 09/14/24 09/15/24 09/16/24 23:59 23:59 23:59 23:59 Intake Total 1120 / 1120 3432.1 / 3432.1 4095 / 4095 825 / 825 Balance 1120 / 1120 3432.1 / 3432.1 4095 / 4095 825 / 825 Physical Exam Oriented: Normal, Time, Person and Place Eyes: Normal Nose: Normal Respiratory: Diminished and [place] Cardiovascular: Normal Auscultation: Bowel Sounds: Normal Tenderness: Normal Skin: Decreased [place]urgur Musculoskeletal: Normal Psychiatric: Normal Mood Description: Calm Affect: Normal Speech Pattern: Clear and Appropriate Laboratory and Diagnostics 09/16/24 06:25 12 06:25 Labs: 09/13/24 17:17 Blood Blood Culture - Preliminary 09/13/24 17:08 Blood Blood Culture - Preliminary Laboratory WBC 6.0 X10^3/uL (3.6-10.0) 09/16/24 06:25 RBC 3.28 X10^6/uL (4.7-6.0) L 09/16/24 06:25 Hgb 11.7 g/dL (13.5-18.0) L 09/16/24 06:25 Hct 34.0 % (42.0-54.0) L 09/16/24 06:25 MCV 103.6 fL (80.0-100.0) H 09/16/24 06:25 MCH 35.8 pg (27.0-34.0) H 09/16/24 06:25 MCHC 34.6 g/dL (33.0-35.0) 09/16/24 06:25 RDW 14.7 % (11.6-16.5) 09/16/24 06:25 Plt Count 57 X10^3/uL (150.0-450.0) L 09/16/24 06:25 Plt Count Comment Decreased (ADEQUATE) 09/15/24 04:50 MPV 10.2 fL (7.4-11.0) 09/16/24 06:25 Neut % (Auto) 86.6 % (42.0-75.0) H 09/16/24 06:25 Lymph % (Auto) 11.3 % (21.0-51.0) L 09/16/24 06:25 [place] % (Auto) 1.9 % (0.0-13.0) 09/16/24 06:25 Eos % (Auto) 0.1 % (0.9-2.9) L 09/16/24 06:25 Baso % (Auto) 0.1 % (0.2-1.0) L 09/16/24 06:25 Neut # (Auto) 5.2 x10^3/uL (2.2-4.8) H 09/16/24 06:25 Lymph # (Auto) 0.7 X10^3/uL (1.3-2.9) L 09/16/24 06:25 [place] # (Auto) 0.1 x10^3/uL (0.3-0.8) L 09/16/24 06:25 Eos # (Auto) 0.0 x10^3/uL (0.0-0.2) 09/16/24 06:25 Baso # (Auto) 0.0 X10^3/uL (0.0-0.1) 09/16/24 06:25 Absolute Nucleated RBC 0.2 /100WBC 09/16/24 06:25 Total Counted 100 09/15/24 04:50 Neutrophils % (Manual) 82 % (39-76) H 09/15/24 04:50 Band Neutrophils % 4 % (0-10) 09/15/24 04:50 Lymphocytes % (Manual) 12 % (13-43) L 09/15/24 04:50 Monocytes % (Manual) 2 % (4-9) L 09/15/24 04:50 Plt Morphology Comment Normal (NORMAL) 09/15/24 04:50 RBC Morphology Abnormal (NORMAL) 09/15/24 04:50 Macrocytosis Slight A 09/15/24 04:50 Sample Site Rr 09/13/24 15:26 ABG pH 7.570 (7.35-7.45) H* 09/13/24 15:26 ABG pCO2 26.0 mmHg (35.0-45.0) L 09/13/24 15:26 ABG pO2 65.0 mmHg (80.0-100.0) L 09/13/24 15:26 ABG HCO3 23.8 mmol/L (22-26) 09/13/24 15:26 ABG O2 Saturation 95.0 % (90-100) 09/13/24 15:26 ABG Base Excess 2.7 mmol/L (-2.0-2.0) H 09/13/24 15:26 Ziyad Test Pos 09/13/24 15:26 A-a Gradient 102.0 mmHg 09/13/24 15:26 FiO2 28.0 09/13/24 15:26 Blood Gas Comments Pt shivani well cdn 09/13/24 15:26 Sodium 135 mmol/L (136-145) L 09/16/24 06:25 Corrected Sodium TNP 09/16/24 06:25 Potassium 3.9 mmol/L (3.5-5.1) 09/16/24 06:25 Chloride 103 mmol/L (98-107) 09/16/24 06:25 Carbon Dioxide 26.1 mmol/L (21-32) 09/16/24 06:25 BUN 18 mg/dL (7-18) 09/16/24 06:25 Creatinine 1.36 mg/dL (0.70-1.30) H 09/16/24 06:25 Est GFR (MDRD) Af Amer > 60 (>60) 09/16/24 06:25 Est GFR (MDRD) Non-Af 56 (>60) L 09/16/24 06:25 Glucose 103 mg/dL (65-99) H 09/16/24 06:25 Hemoglobin A1c 6.9 % 09/15/24 04:50 Lactic Acid 2.0 mmol/L (0.4-2.0) 09/13/24 20:58 Calcium 8.1 mg/dL (8.5-10.1) L 09/16/24 06:25 Corrected Calcium 10.4 mg/dL (8.5-10.1) H 09/16/24 06:25 Magnesium 2.5 mg/dL (2.0-2.9) 09/15/24 04:50 Total Bilirubin 1.40 mg/dL (0.2-1.0) H 09/16/24 06:25 AST 68 Units/L (15-37) H 09/16/24 06:25 ALT 50 Units/L (12-78) 09/16/24 06:25 Alkaline Phosphatase 61 Units/L (46-116) 09/16/24 06:25 C-Reactive Protein 323.90 mg/L (0-3.0) H 09/13/24 14:52 B-Natriuretic Peptide 103 pg/mL (0-79) H 09/15/24 04:50 Total Protein 5.8 g/dL (6.4-8.2) L 09/16/24 06:25 Albumin 1.1 g/dL (3.4-5.0) L 09/16/24 06:25 Globulin 4.7 g/dL (2.5-4.5) H 09/16/24 06:25 Albumin/Globulin Ratio 0.2 Ratio (1.1-2.1) L 09/16/24 06:25 Specimen Type Clean catch urine 09/13/24 19: Urine Color Yellow (YELLOW) 09/13/24 19: Urine Appearance Hazy (CLEAR) 09/13/24 19: Urine pH 6.0 (5.0 - 8.0) 09/13/24 19: Ur Specific [place] 1.020 (1.000-1.030) 09/13/24 19: Urine Protein 3+ (NEGATIVE) 09/13/24 19: Urine Glucose (UA) Negative (NEGATIVE) 09/13/24 19: Urine Ketones Negative (NEGATIVE) 09/13/24 19: Urine Blood 5+ (NEGATIVE) 09/13/24 19: Urine Nitrite Negative (NEGATIVE) 09/13/24 19: Urine Bilirubin Negative (NEGATIVE) 09/13/24 19: Urine Urobilinogen 2+ (NORMAL) 09/13/24 19: Ur Leukocyte Esterase Negative (NEGATIVE) 09/13/24 19: Urine RBC 0-2 /HPF (0-3) 09/13/24 19: Urine WBC 0-2 /HPF (0-5) 09/13/24 19:29 Ur Squamous Epith Cells Rare /HPF (NEGATIVE) 09/13/24 19: Amorphous Sediment 1+ /HPF (NEGATIVE) 09/13/24 19: Urine Bacteria Trace /HPF (NEGATIVE) 09/13/24 19: Granular Casts Moderate /LPF (NEGATIVE) 09/13/24 19: Ur Culture Indicated? No/not indicated 09/13/24 19:29 SARS-CoV-2 (PCR) Negative (NEGATIVE) 09/13/24 14:56 Influenza Type A (PCR) Negative (NEGATIVE) 09/13/24 14:56 Influenza Type B (PCR) Negative (NEGATIVE) 09/13/24 14:56 RSV (PCR) Negative (NEGATIVE) 09/13/24 14:56 Plan (1) Right lower lobe pneumonia: Status: Acute Qualifiers: Pneumonia type: due to unspecified organism Qualified Code(s): J18.9 - Pneumonia, unspecified organism Plan: Follow-up with sputum cultures, IV Levaquin. We will also continue jet nebs and inhaled budesonide. HHF oxygen (2) Atrial fibrillation with RVR: Status: Acute Plan: Continue Eliquis at this time. (3) Dehydration: Status: Acute Plan: Continue IV normal saline hydration at this time. (4) Hyponatremia: Status: Acute Plan: Continue hydration therapy with normal saline IV fluid. (5) Essential hypertension: Status: Acute Plan: Resume the patient's losartan 25 mg daily. He is also receiving Cardizem 240 mg p.o. daily for atrial fibrillation. (6) Thrombocytopenia: Status: Acute Plan: Follow daily CBCs to monitor for platelet count improvement. (7) Elevated LFTs: Status: Acute Plan: Monitor for continued improvement. (8) Hypoalbuminemia: Status: Acute (9) Elevated brain natriuretic peptide (BNP) level: Status: Acute (10) Glaucoma: Status: Acute Plan: Continue dorzolamidetimolol ophthalmic drops. (11) Hyperglycemia: Status: Acute (12) History of malignant neoplasm of prostate: Status: Acute (13) Hx of prostatectomy: Status: Acute
[2024-09-16] MEDS: SOLU-Medrol 40 MG VIAL IVP SCH (11:28)
[2024-09-16 11:31] LABS: ABG BASE EXCESS -0.4 mmol/L (-2.0-2.0); ABG HCO3 21.8 mmol/L (22-26)
[2024-09-16 11:32] LABS: ABG ALLEN TEST POS
[2024-09-17 05:26] LABS: BASOPHILS % (AUTO) 0.1 % (0.2-1.0); EOSINOPHILS % (AUTO) 0.1 % (0.9-2.9); HEMATOCRIT 31.2 % (42.0-54.0); HEMOGLOBIN 10.7 g/dL (13.5-18.0); LYMPHOCYTES # (AUTO) 0.8 X10^3/uL (1.3-2.9); LYMPHOCYTES % (AUTO) 14.9 % (21.0-51.0); MEAN CORPUSCULAR HEMOGLOBIN 35.5 pg (27.0-34.0); MEAN CORPUSCULAR HGB CONC 34.2 g/dL (33.0-35.0); MEAN CORPUSCULAR VOLUME 103.5 fL (80.0-100.0); MEAN PLATELET VOLUME 9.4 fL (7.4-11.0); MONOCYTES # (AUTO) 0.1 x10^3/uL (0.3-0.8); MONOCYTES % (AUTO) 1.5 % (0.0-13.0); NEUTROPHILS # (AUTO) 4.6 x10^3/uL (2.2-4.8); NEUTROPHILS % (AUTO) 83.4 % (42.0-75.0); PLATELET COUNT 58 X10^3/uL (150.0-450.0); RED BLOOD COUNT 3.01 X10^6/uL (4.7-6.0); RED CELL DISTRIBUTION WIDTH 14.7 % (11.6-16.5); WHITE BLOOD COUNT 5.5 X10^3/uL (3.6-10.0)
[2024-09-17 05:32] LABS: ALANINE AMINOTRANSFERASE 51 Units/L (12-78); ALBUMIN 1.1 g/dL (3.4-5.0); ALKALINE PHOSPHATASE 61 Units/L (46-116); ASPARTATE AMINO TRANSFERASE 85 Units/L (15-37); BLOOD UREA NITROGEN 20 mg/dL (7-18); CALCIUM 8.4 mg/dL (8.5-10.1); CARBON DIOXIDE 22.6 mmol/L (21-32); CHLORIDE 103 mmol/L (98-107); COR CA(FOR HYPOALB) 10.7 mg/dL (8.5-10.1); COR NA(FOR HYPERGLY) 137 mmol/L (136-145); CREATININE 1.16 mg/dL (0.70-1.30); GLUCOSE 136 mg/dL (65-99); POTASSIUM 4.3 mmol/L (3.5-5.1); SODIUM 136 mmol/L (136-145); TOTAL PROTEIN 5.9 g/dL (6.4-8.2); eGFR NON BLACK RACES > 60 (>60)
[2024-09-17] MEDS: OMNIPAQUE 350 mg/mL 100 mL BTL 100 ML ONE ×2 (06:56)
[2024-09-17] MEDS: NS 100 ML IV 100 ML ONE (06:56)
[2024-09-17] MEDS: XOPENEX 1.25 MG/3 ML NEBULE NEB ONE (06:56)
--- NOTE | 2024-09-17 09:08 | CT ---
EXAMINATION:CTA, CHESTHISTORY:WORSENING RESP DISTRESS;COMPARISON:None.TECHNIQUE:Lonnie guous axial CT images of the thorax following intravenous contrast. Images reviewed in the axial imaging plane with post processing thick slab MIP/3D volume images at a workstation.The above CT scan was done with automated exposure control and the mA and kV was adjusted to obtain quality images according to patient size.FINDINGS:Extensive coarse pulmonary infiltrates throughout the right upper lobe, right middle lobe, right lower lobe. Large area of dense pulmonary consolidation containing air bronchograms in the right lower lobe measuring 10 by 5.5 by 15 cm. Moderately sized right-sided pleural fluid collection having a density measurement of 13 Hounsfield units. Mild left-sided pleural fluid collection with small area of pulmonary consolidation and/or compressive atelectasis of the adjacent left lower lobe. The central airways are patent.Mild cardiomegaly. Coronary artery calcifications. Normal enhancement of the pulmonary arteries. No evidence of thoracic aortic aneurysm or dissection.No pericardial effusion. Mediastinal lymph nodes as follows: 1.5 by 1.2 cm lower right paratracheal space; 1.2 by 0.7 cm right precarinal space; 1.9 by 1.2 cm subcarinal space; 1.8 by 1 cm azygous esophageal recess.[id number] thoracic spondylosis.IMPRESSION:Extensive infiltrates throughout the right lung and small infiltrate in the left pulmonary base as described above.Bilateral pleural effusions.Cardiomegaly, coronary artery calcifications.No evidence of acute pulmonary embolism.Mediastinal adenopathy.THIS IS AN ELECTRONICALLY VERIFIED FINAL [id number] 9:05 AM - Electronically signed by Veronica Fowler MD
[2024-09-17] MEDS: ALBUMIN HUMAN 25%- 100 ML 100 ML IV ONE (10:53)
[2024-09-17 11:37] LABS: ABG ALLEN TEST POS; ABG HCO3 21.6 mmol/L (22-26)
--- NOTE | 2024-09-17 12:54 | PCM.PROG ---
Progress Note Progress Note for Day of Date of Exam: 09/17/24 Subjective Subjective: The patient reports feeling "a little bit" better compared to and Tuesday of last week. He states his breathing has improved "a lot more". Upon auscultation, I noted significant ronchi in both lung banda. The patient's color appears improved from Tuesday, and he seems less confused. He is able to communicate coherently. The patient has been trying to eat, though his appetite is likely diminished due to his condition. We're providing him with nutritional supplements (Ensure). Lab results show some improvement this morning, but the ABG (arterial blood gas) indicates worsening blood oxygen levels. Yesterday's chest x-ray showed worsening compared to admission. The patient confirmed he wants to be resuscitated and put on a ventilator if necessary. The patient is currently able to urinate independently. Past Medical Family Social History Allergies: Allergies No Known Allergies Allergy (Verified 09/13/24 14:44) Review of Systems ROS: No change since H&P Vital Signs and I&O's Vital Signs: Vital Signs Pulse Rate 83 Pulse Rate 75 Pulse Rate 80 Pulse Rate 70 Pulse Rate 77 Respiratory Rate 24 Respiratory Rate 20 Respiratory Rate 24 Respiratory Rate 20 Respiratory Rate 21 Blood Pressure 154/99 Blood Pressure 142/71 Blood Pressure 145/75 Blood Pressure 127/74 Blood Pressure 130/67 O2 Sat by Pulse Oximetry 97 O2 Sat by Pulse Oximetry 100 O2 Sat by Pulse Oximetry 97 O2 Sat by Pulse Oximetry 100 O2 Sat by Pulse Oximetry 100 Intake and Output: Intake & Output 09/15/24 09/16/24 09/17/24 09/18/24 11:59 11:59 11:59 11:59 Intake Total 3719 / 3719 3920 / 3920 2970 / 2970 Balance 3719 / 3719 3920 / 3920 2970 / 2970 Physical Exam Oriented: Normal, Time, Person and Place Eyes: Normal Nose: Normal Respiratory: Diminished and [place] Cardiovascular: Normal Auscultation: Bowel Sounds: Normal Tenderness: Normal Skin: Decreased Turgur Musculoskeletal: Normal Psychiatric: Normal Mood Description: Calm Affect: Normal Speech Pattern: Clear and Appropriate Laboratory and Diagnostics 09/17/24 04:50 09/17/24 04:50 Labs: 09/14/24 21:40 Blood Blood Culture - Preliminary 09/14/24 21:30 Blood Blood Culture - Preliminary 09/13/24 17:17 Blood Blood Culture - Preliminary 09/13/24 17:08 Blood Blood Culture - Preliminary Laboratory WBC 5.5 X10^3/uL (3.6-10.0) 09/17/24 04:50 RBC 3.01 X10^6/uL (4.7-6.0) L 09/17/24 04:50 Hgb 10.7 g/dL (13.5-18.0) L 09/17/24 04:50 Hct 31.2 % (42.0-54.0) L 09/17/24 04:50 MCV 103.5 fL (80.0-100.0) H 09/17/24 04:50 MCH 35.5 pg (27.0-34.0) H 09/17/24 04:50 MCHC 34.2 g/dL (33.0-35.0) 09/17/24 04:50 RDW 14.7 % (11.6-16.5) 09/17/24 04:50 Plt Count 58 X10^3/uL (150.0-450.0) L 09/17/24 04:50 Plt Count Comment Decreased (ADEQUATE) 09/15/24 04:50 MPV 9.4 fL (7.4-11.0) 09/17/24 04:50 Neut % (Auto) 83.4 % (42.0-75.0) H 09/17/24 04:50 Lymph % (Auto) 14.9 % (21.0-51.0) L 09/17/24 04:50 [place] % (Auto) 1.5 % (0.0-13.0) 09/17/24 04:50 Eos % (Auto) 0.1 % (0.9-2.9) L 09/17/24 04:50 Baso % (Auto) 0.1 % (0.2-1.0) L 09/17/24 04:50 Neut # (Auto) 4.6 x10^3/uL (2.2-4.8) 09/17/24 04:50 Lymph # (Auto) 0.8 X10^3/uL (1.3-2.9) L 09/17/24 04:50 [place] # (Auto) 0.1 x10^3/uL (0.3-0.8) L 09/17/24 04:50 Eos # (Auto) 0.0 x10^3/uL (0.0-0.2) 09/17/24 04:50 Baso # (Auto) 0.0 X10^3/uL (0.0-0.1) 09/17/24 04:50 Absolute Nucleated RBC 0.1 /100WBC 09/17/24 04:50 Total Counted 100 09/15/24 04:50 Neutrophils % (Manual) 82 % (39-76) H 09/15/24 04:50 Band Neutrophils % 4 % (0-10) 09/15/24 04:50 Lymphocytes % (Manual) 12 % (13-43) L 09/15/24 04:50 Monocytes % (Manual) 2 % (4-9) L 09/15/24 04:50 Plt Morphology Comment Normal (NORMAL) 09/15/24 04:50 RBC Morphology Abnormal (NORMAL) 09/15/24 04:50 Macrocytosis Slight A 09/15/24 04:50 Sample Site Rrad 09/17/24 11:30 ABG pH 7.480 (7.35-7.45) H 09/17/24 11:30 ABG pCO2 29.0 mmHg (35.0-45.0) L 09/17/24 11:30 ABG pO2 86.0 mmHg (80.0-100.0) 09/17/24 11:30 ABG HCO3 21.6 mmol/L (22-26) L 09/17/24 11:30 ABG O2 Saturation 97.0 % (90-100) 09/17/24 11:30 ABG Base Excess -1.0 mmol/L (-2.0-2.0) 09/17/24 11:30 Ziyad Test Pos 09/17/24 11:30 A-a Gradient 448.0 mmHg 09/17/24 11:30 FiO2 80.0 09/17/24 11:30 Blood Gas Comments Pt shivani well elj cdn 09/17/24 11:30 Sodium 136 mmol/L (136-145) 09/17/24 04:50 Corrected Sodium 137 mmol/L (136-145) 09/17/24 04:50 Potassium 4.3 mmol/L (3.5-5.1) 09/17/24 04:50 Chloride 103 mmol/L (98-107) 09/17/24 04:50 Carbon Dioxide 22.6 mmol/L (21-32) 09/17/24 04:50 BUN 20 mg/dL (7-18) H 09/17/24 04:50 Creatinine 1.16 mg/dL (0.70-1.30) 09/17/24 04:50 Est GFR (MDRD) Af Amer > 60 (>60) 09/17/24 04:50 Est GFR (MDRD) Non-Af > 60 (>60) 09/17/24 04:50 Glucose 136 mg/dL (65-99) H 09/17/24 04:50 Hemoglobin A1c 6.9 % 09/15/24 04:50 Lactic Acid 2.0 mmol/L (0.4-2.0) 09/13/24 20:58 Calcium 8.4 mg/dL (8.5-10.1) L 09/17/24 04:50 Corrected Calcium 10.7 mg/dL (8.5-10.1) H 09/17/24 04:50 Magnesium 2.5 mg/dL (2.0-2.9) 09/15/24 04:50 Total Bilirubin 1.00 mg/dL (0.2-1.0) 09/17/24 04:50 AST 85 Units/L (15-37) H 09/17/24 04:50 ALT 51 Units/L (12-78) 09/17/24 04:50 Alkaline Phosphatase 61 Units/L (46-116) 09/17/24 04:50 C-Reactive Protein 323.90 mg/L (0-3.0) H 09/13/24 14:52 B-Natriuretic Peptide 135 pg/mL (0-79) H 09/17/24 04:50 Total Protein 5.9 g/dL (6.4-8.2) L 09/17/24 04:50 Albumin 1.1 g/dL (3.4-5.0) L 09/17/24 04:50 Globulin 4.8 g/dL (2.5-4.5) H 09/17/24 04:50 Albumin/Globulin Ratio 0.2 Ratio (1.1-2.1) L 09/17/24 04:50 Specimen Type Clean catch urine 09/13/24 19: Urine Color Yellow (YELLOW) 09/13/24 19: Urine Appearance Hazy (CLEAR) 09/13/24 19: Urine pH 6.0 (5.0 - 8.0) 09/13/24 19: Ur Specific [place] 1.020 (1.000-1.030) 09/13/24 19: Urine Protein 3+ (NEGATIVE) 09/13/24 19: Urine Glucose (UA) Negative (NEGATIVE) 09/13/24 19: Urine Ketones Negative (NEGATIVE) 09/13/24 19: Urine Blood 5+ (NEGATIVE) 09/13/24 19: Urine Nitrite Negative (NEGATIVE) 09/13/24 19: Urine Bilirubin Negative (NEGATIVE) 09/13/24 19: Urine Urobilinogen 2+ (NORMAL) 09/13/24 19: Ur Leukocyte Esterase Negative (NEGATIVE) 09/13/24 19: Urine RBC 0-2 /HPF (0-3) 09/13/24 19: Urine WBC 0-2 /HPF (0-5) 09/13/24 19:29 Ur Squamous Epith Cells Rare /HPF (NEGATIVE) 09/13/24 19: Amorphous Sediment 1+ /HPF (NEGATIVE) 09/13/24 19: Urine Bacteria Trace /HPF (NEGATIVE) 09/13/24 19: Granular Casts Moderate /LPF (NEGATIVE) 09/13/24 19:29 Ur Culture Indicated? No/not indicated 09/13/24 19:29 SARS-CoV-2 (PCR) Negative (NEGATIVE) 09/13/24 14:56 Influenza Type A (PCR) Negative (NEGATIVE) 09/13/24 14:56 Influenza Type B (PCR) Negative (NEGATIVE) 09/13/24 14:56 RSV (PCR) Negative (NEGATIVE) 09/13/24 14:56 Plan (1) Right lower lobe pneumonia: Status: Acute Qualifiers: Pneumonia type: due to unspecified organism Qualified Code(s): J18.9 - Pneumonia, unspecified organism Plan: Follow-up with sputum cultures, IV Levaquin. We will also continue jet nebs and inhaled budesonide. HHF oxygen (2) Atrial fibrillation with RVR: Status: Acute Plan: Continue Eliquis at this time. (3) Dehydration: Status: Acute Plan: Continue IV normal saline hydration at this time. (4) Hyponatremia: Status: Acute Plan: Continue hydration therapy with normal saline IV fluid. (5) Essential hypertension: Status: Acute Plan: Resume the patient's losartan 25 mg daily. He is also receiving Cardizem 240 mg p.o. daily for atrial fibrillation. (6) Thrombocytopenia: Status: Acute Plan: Follow daily CBCs to monitor for platelet count improvement. (7) Elevated LFTs: Status: Acute Plan: Monitor for continued improvement. (8) Hypoalbuminemia: Status: Acute Plan: The patient did eat breakfast this morning we will continue to encourage him to eat and if he starts showing signs of generalized edema will have him IV albumin if needed. (9) Elevated brain natriuretic peptide (BNP) level: Status: Acute Plan: Repeat BMP again tomorrow as well as chest x-ray. We will diurese if needed. (10) Glaucoma: Status: Acute Plan: Continue dorzolamidetimolol ophthalmic drops. (11) Hyperglycemia: Status: Acute Plan: Check hemoglobin A1c for tomorrow morning. (12) History of malignant neoplasm of prostate: Status: Acute (13) Hx of prostatectomy: Status: Acute Plan: Plan/Recommendations I will review the CT scan results when they become available and inform the patient. We will attempt to track down the culture results from last week's admission. I've ordered an echocardiogram and we're waiting on some other test results. I've recommended that the patient eat and drink to maintain nutrition levels. We will administer albumin today. The patient is to remain in bed for now due to the severity of his pneumonia. Follow-up with [facility] consultation, which was done over the past weekend. We will see what today's recommendations are when available.
[2024-09-17] MEDS: NS 1,000 ML IV 1,000 ML IV SCH (13:08)
[2024-09-17] MEDS: MAXIPIME VIAL 2 GRAMS 2 G in NS 100 ML IV 100 ML IV SCH (13:09)
[2024-09-17] MEDS: ZITHROMAX INJ 500 MG VIAL 500 MG in NS 250 ML IV 250 ML IV SCH (14:06)
[2024-09-18 05:31] LABS: BASOPHILS % (AUTO) 0.2 % (0.2-1.0); EOSINOPHILS % (AUTO) 0.3 % (0.9-2.9); HEMATOCRIT 24.6 % (42.0-54.0); LYMPHOCYTES # (AUTO) 0.3 X10^3/uL (1.3-2.9); LYMPHOCYTES % (AUTO) 7.9 % (21.0-51.0); MEAN CORPUSCULAR HEMOGLOBIN 35.9 pg (27.0-34.0); MEAN CORPUSCULAR HGB CONC 34.8 g/dL (33.0-35.0); MEAN CORPUSCULAR VOLUME 103.2 fL (80.0-100.0); MEAN PLATELET VOLUME 9.8 fL (7.4-11.0); MONOCYTES # (AUTO) 0.1 x10^3/uL (0.3-0.8); MONOCYTES % (AUTO) 1.7 % (0.0-13.0); NEUTROPHILS # (AUTO) 3.8 x10^3/uL (2.2-4.8); NEUTROPHILS % (AUTO) 89.9 % (42.0-75.0); PLATELET COUNT 55 X10^3/uL (150.0-450.0); RED BLOOD COUNT 2.38 X10^6/uL (4.7-6.0); RED CELL DISTRIBUTION WIDTH 14.8 % (11.6-16.5); WHITE BLOOD COUNT 4.3 X10^3/uL (3.6-10.0)
[2024-09-18 05:41] LABS: HEMOGLOBIN 8.5 g/dL (13.5-18.0)
[2024-09-18 05:48] LABS: ALANINE AMINOTRANSFERASE 43 Units/L (12-78); ALBUMIN 1.3 g/dL (3.4-5.0); ALKALINE PHOSPHATASE 51 Units/L (46-116); ASPARTATE AMINO TRANSFERASE 65 Units/L (15-37); BLOOD UREA NITROGEN 18 mg/dL (7-18); CALCIUM 8.1 mg/dL (8.5-10.1); CARBON DIOXIDE 23.8 mmol/L (21-32); CHLORIDE 108 mmol/L (98-107); COR CA(FOR HYPOALB) 10.3 mg/dL (8.5-10.1); COR NA(FOR HYPERGLY) 140 mmol/L (136-145); GLUCOSE 148 mg/dL (65-99); POTASSIUM 4.1 mmol/L (3.5-5.1); SODIUM 139 mmol/L (136-145); TOTAL PROTEIN 5.1 g/dL (6.4-8.2); eGFR NON BLACK RACES > 60 (>60)
[2024-09-18 10:03] LABS: ABG ALLEN TEST POS; ABG HCO3 21.6 mmol/L (22-26)
[2024-09-18] MEDS: ALBUMIN HUMAN 25%- 100 ML 100 ML IV SCH (10:48)
[2024-09-18 15:54] LABS: HEMATOCRIT 23.4 % (42.0-54.0); HEMOGLOBIN 8.1 g/dL (13.5-18.0)
[2024-09-18] MEDS: SEROquel TAB 25 mg PO PRN (21:27)
[2024-09-19 05:52] LABS: BASOPHILS % (AUTO) 0.5 % (0.2-1.0); HEMATOCRIT 22.8 % (42.0-54.0); HEMOGLOBIN 7.8 g/dL (13.5-18.0); LYMPHOCYTES # (AUTO) 0.4 X10^3/uL (1.3-2.9); LYMPHOCYTES % (AUTO) 9.4 % (21.0-51.0); MEAN CORPUSCULAR HEMOGLOBIN 35.3 pg (27.0-34.0); MEAN CORPUSCULAR HGB CONC 34.3 g/dL (33.0-35.0); MEAN CORPUSCULAR VOLUME 102.9 fL (80.0-100.0); MEAN PLATELET VOLUME 9.6 fL (7.4-11.0); MONOCYTES # (AUTO) 0.1 x10^3/uL (0.3-0.8); MONOCYTES % (AUTO) 2.8 % (0.0-13.0); NEUTROPHILS # (AUTO) 3.5 x10^3/uL (2.2-4.8); NEUTROPHILS % (AUTO) 87.3 % (42.0-75.0); PLATELET COUNT 53 X10^3/uL (150.0-450.0); RED BLOOD COUNT 2.22 X10^6/uL (4.7-6.0); RED CELL DISTRIBUTION WIDTH 14.8 % (11.6-16.5)
[2024-09-19 06:05] LABS: ALANINE AMINOTRANSFERASE 57 Units/L (12-78); ALBUMIN 1.6 g/dL (3.4-5.0); ALKALINE PHOSPHATASE 54 Units/L (46-116); ASPARTATE AMINO TRANSFERASE 84 Units/L (15-37); BLOOD UREA NITROGEN 19 mg/dL (7-18); CALCIUM 8.1 mg/dL (8.5-10.1); CARBON DIOXIDE 24.2 mmol/L (21-32); CHLORIDE 111 mmol/L (98-107); COR NA(FOR HYPERGLY) 143 mmol/L (136-145); CREATININE 1.08 mg/dL (0.70-1.30); GLUCOSE 149 mg/dL (65-99); POTASSIUM 3.9 mmol/L (3.5-5.1); SODIUM 142 mmol/L (136-145); TOTAL PROTEIN 5.4 g/dL (6.4-8.2); eGFR NON BLACK RACES > 60 (>60)
[2024-09-19 06:12] LABS: ABG ALLEN TEST POS; ABG BASE EXCESS -0.4 mmol/L (-2.0-2.0); ABG HCO3 22.3 mmol/L (22-26)
[2024-09-19 06:13] LABS: MAGNESIUM 2.4 mg/dL (2.0-2.9); PHOSPHORUS 3.4 mg/dL (2.6-4.7)
--- NOTE | 2024-09-19 09:27 | PCM.PROG ---
Progress Note Progress Note for Day of Date of Exam: 09/18/24 Subjective Subjective: The patient's hemoglobin is 8.5, down from 10.7. White blood cell count remains normal at 4,300. Platelets are low at 55,000 but holding steady. ABG this morning shows improved pH at 7.48, PCO2 of 29, PO2 of 86. Bicarb level is 21.6. SpO2 is 97% on FiO2 of 80%. Electrolytes are normal. Estimated GFR is greater than 60, glucose is 148. Calcium is 10.3, AST 65, ALT 43. Albumin remains low at 1.3. Yesterday's chest CTA showed right upper lobe, right middle lobe, and right lower lobe infiltrates with a right lower lobe area of consolidation and a left lower lobe infiltrate. Today's examination reveals more air movement in the right lung compared to yesterday, with a lot of bronchi noted. The left lung sounds better. The patient reports feeling good and had a great night. His appetite is good. He appears more comfortable and is looking clinically better. The FiO2 has been decreased to 52%, which is an improvement from 50% yesterday. The patient is currently on protonics for GI protection. He is able to eat and has been consuming some food from [place]. Past Medical Family Social History Allergies: Allergies No Known Allergies Allergy (Verified 09/13/24 14:44) Review of Systems ROS: No change since H&P Vital Signs and I&O's Vital Signs: Vital Signs Temperature 98.1 F Temperature 98.4 F Pulse Rate 86 Pulse Rate 64 Pulse Rate 82 Pulse Rate 84 Pulse Rate 79 Pulse Rate 79 Pulse Rate 81 Pulse Rate 74 Respiratory Rate 17 Respiratory Rate 16 Respiratory Rate 18 Respiratory Rate 24 Respiratory Rate 24 Respiratory Rate 26 Respiratory Rate 16 Respiratory Rate 19 Blood Pressure 148/70 Blood Pressure 138/74 Blood Pressure 135/73 Blood Pressure 144/79 Blood Pressure 143/74 Blood Pressure 151/85 Blood Pressure 151/77 O2 Sat by Pulse Oximetry 99 O2 Sat by Pulse Oximetry 100 O2 Sat by Pulse Oximetry 99 O2 Sat by Pulse Oximetry 99 O2 Sat by Pulse Oximetry 100 O2 Sat by Pulse Oximetry 97 O2 Sat by Pulse Oximetry 98 O2 Sat by Pulse Oximetry 99 Intake and Output: Intake & Output 09/16/24 09/17/24 09/18/24 09/19/24 11:59 11:59 11:59 11:59 Intake Total 3920 / 3920 2970 / 2970 2540 / 2540 3040 / 3040 Output Total 1800 / 1800 Balance 3920 / 3920 2970 / 2970 2540 / 2540 1240 / 1240 Physical Exam Oriented: Normal, Time, Person and Place Eyes: Normal Nose: Normal Respiratory: Generalized, Diminished and Rhonchi Cardiovascular: Normal Auscultation: Bowel Sounds: Normal Tenderness: Normal Skin: Decreased Turgur Musculoskeletal: Normal Psychiatric: Normal Mood Description: Calm Affect: Normal Speech Pattern: Clear and Appropriate Laboratory and Diagnostics 09/19/24 05:18 09/19/24 05:18 Labs: 09/18/24 09:27 Sputum - Expectorated Sputum - Final 09/14/24 21:40 Blood Blood Culture - Preliminary 09/14/24 21:30 Blood Blood Culture - Preliminary 09/13/24 17:17 Blood Blood Culture - Preliminary 09/13/24 17:08 Blood Blood Culture - Preliminary Laboratory WBC 4.0 X10^3/uL (3.6-10.0) 09/19/24 05:18 RBC 2.22 X10^6/uL (4.7-6.0) L 09/19/24 05:18 Hgb 7.8 g/dL (13.5-18.0) L 09/19/24 05:18 Hct 22.8 % (42.0-54.0) L 09/19/24 05:18 MCV 102.9 fL (80.0-100.0) H 09/19/24 05:18 MCH 35.3 pg (27.0-34.0) H 09/19/24 05:18 MCHC 34.3 g/dL (33.0-35.0) 09/19/24 05:18 RDW 14.8 % (11.6-16.5) 09/19/24 05:18 Plt Count 53 X10^3/uL (150.0-450.0) L 09/19/24 05:18 Plt Count Comment Decreased (ADEQUATE) 09/15/24 04:50 MPV 9.6 fL (7.4-11.0) 09/19/24 05:18 Neut % (Auto) 87.3 % (42.0-75.0) H 09/19/24 05:18 Lymph % (Auto) 9.4 % (21.0-51.0) L 09/19/24 05:18 [place] % (Auto) 2.8 % (0.0-13.0) 09/19/24 05:18 Eos % (Auto) 0.0 % (0.9-2.9) L 09/19/24 05:18 Baso % (Auto) 0.5 % (0.2-1.0) 09/19/24 05:18 Neut # (Auto) 3.5 x10^3/uL (2.2-4.8) 09/19/24 05:18 Lymph # (Auto) 0.4 X10^3/uL (1.3-2.9) L 09/19/24 05:18 [place] # (Auto) 0.1 x10^3/uL (0.3-0.8) L 09/19/24 05:18 Eos # (Auto) 0.0 x10^3/uL (0.0-0.2) 09/19/24 05:18 Baso # (Auto) 0.0 X10^3/uL (0.0-0.1) 09/19/24 05:18 Absolute Nucleated RBC 0.1 /100WBC 09/19/24 05:18 Total Counted 100 09/15/24 04:50 Neutrophils % (Manual) 82 % (39-76) H 09/15/24 04:50 Band Neutrophils % 4 % (0-10) 09/15/24 04:50 Lymphocytes % (Manual) 12 % (13-43) L 09/15/24 04:50 Monocytes % (Manual) 2 % (4-9) L 09/15/24 04:50 Plt Morphology Comment Normal (NORMAL) 09/15/24 04:50 RBC Morphology Abnormal (NORMAL) 09/15/24 04:50 Macrocytosis Slight A 09/15/24 04:50 Sample Site L rad 09/19/24 06:06 ABG pH 7.480 (7.35-7.45) H 09/19/24 06:06 ABG pCO2 30.0 mmHg (35.0-45.0) L 09/19/24 06:06 ABG pO2 74.0 mmHg (80.0-100.0) L 09/19/24 06:06 ABG HCO3 22.3 mmol/L (22-26) 09/19/24 06:06 ABG O2 Saturation 96.0 % (90-100) 09/19/24 06:06 ABG Base Excess -0.4 mmol/L (-2.0-2.0) 09/19/24 06:06 Ziyad Test Pos 09/19/24 06:06 A-a Gradient 266.0 mmHg 09/19/24 06:06 FiO2 53.0 09/19/24 06:06 Blood Gas Comments Griselda well. patternator 09/19/24 06:06 Sodium 142 mmol/L (136-145) 09/19/24 05:18 Corrected Sodium 143 mmol/L (136-145) 09/19/24 05:18 Potassium 3.9 mmol/L (3.5-5.1) 09/19/24 05:18 Chloride 111 mmol/L (98-107) H 09/19/24 05:18 Carbon Dioxide 24.2 mmol/L (21-32) 09/19/24 05:18 BUN 19 mg/dL (7-18) H 09/19/24 05:18 Creatinine 1.08 mg/dL (0.70-1.30) 09/19/24 05:18 Est GFR (MDRD) Af Amer > 60 (>60) 09/19/24 05:18 Est GFR (MDRD) Non-Af > 60 (>60) 09/19/24 05:18 Glucose 149 mg/dL (65-99) H 09/19/24 05:18 Hemoglobin A1c 6.9 % 09/15/24 04:50 Lactic Acid 2.0 mmol/L (0.4-2.0) 09/13/24 20:58 Calcium 8.1 mg/dL (8.5-10.1) L 09/19/24 05:18 Corrected Calcium 10.0 mg/dL (8.5-10.1) 09/19/24 05:18 Phosphorus 3.4 mg/dL (2.6-4.7) 09/19/24 05:18 Magnesium 2.4 mg/dL (2.0-2.9) 09/19/24 05:18 Total Bilirubin 0.80 mg/dL (0.2-1.0) 09/19/24 05:18 AST 84 Units/L (15-37) H 09/19/24 05:18 ALT 57 Units/L (12-78) 09/19/24 05:18 Alkaline Phosphatase 54 Units/L (46-116) 09/19/24 05:18 C-Reactive Protein 323.90 mg/L (0-3.0) H 09/13/24 14:52 B-Natriuretic Peptide 135 pg/mL (0-79) H 09/17/24 04:50 Total Protein 5.4 g/dL (6.4-8.2) L 09/19/24 05:18 Albumin 1.6 g/dL (3.4-5.0) L 09/19/24 05:18 Globulin 3.8 g/dL (2.5-4.5) 09/19/24 05:18 Albumin/Globulin Ratio 0.4 Ratio (1.1-2.1) L 09/19/24 05:18 Specimen Type Clean catch urine 09/13/24 19:29 Urine Color Yellow (YELLOW) 09/13/24 19: Urine Appearance Hazy (CLEAR) 09/13/24 19:29 Urine pH 6.0 (5.0 - 8.0) 09/13/24 19: Ur Specific [place] 1.020 (1.000-1.030) 09/13/24 19:29 Urine Protein 3+ (NEGATIVE) 09/13/24 19: Urine Glucose (UA) Negative (NEGATIVE) 09/13/24 19: Urine Ketones Negative (NEGATIVE) 09/13/24 19: Urine Blood 5+ (NEGATIVE) 09/13/24 19: Urine Nitrite Negative (NEGATIVE) 09/13/24 19: Urine Bilirubin Negative (NEGATIVE) 09/13/24 19: Urine Urobilinogen 2+ (NORMAL) 09/13/24 19: Ur Leukocyte Esterase Negative (NEGATIVE) 09/13/24 19: Urine RBC 0-2 /HPF (0-3) 09/13/24 19: Urine WBC 0-2 /HPF (0-5) 09/13/24 19:29 Ur Squamous Epith Cells Rare /HPF (NEGATIVE) 09/13/24 19: Amorphous Sediment 1+ /HPF (NEGATIVE) 09/13/24 19: Urine Bacteria Trace /HPF (NEGATIVE) 09/13/24 19:29 Granular Casts Moderate /LPF (NEGATIVE) 09/13/24 19:29 Ur Culture Indicated? No/not indicated 09/13/24 19:29 SARS-CoV-2 (PCR) Negative (NEGATIVE) 09/13/24 14:56 Influenza Type A (PCR) Negative (NEGATIVE) 09/13/24 14:56 Influenza Type B (PCR) Negative (NEGATIVE) 09/13/24 14:56 RSV (PCR) Negative (NEGATIVE) 09/13/24 14:56 Resp Viral Panel (PCR) See scanned report 09/13/24 20:10 Radiology Reviewed: Yes Plan (1) Right lower lobe pneumonia: Status: Acute Qualifiers: Pneumonia type: due to unspecified organism Qualified Code(s): J18.9 - Pneumonia, unspecified organism Plan: Follow-up with sputum cultures, IV Levaquin. We will also continue jet nebs and inhaled budesonide. HHF oxygen (2) Atrial fibrillation with RVR: Status: Acute Plan: Continue Eliquis at this time. (3) Dehydration: Status: Acute Plan: Continue IV normal saline hydration at this time. (4) Hyponatremia: Status: Acute Plan: Continue hydration therapy with normal saline IV fluid. (5) Essential hypertension: Status: Acute Plan: Resume the patient's losartan 25 mg daily. He is also receiving Cardizem 240 mg p.o. daily for atrial fibrillation. (6) Thrombocytopenia: Status: Acute Plan: Follow daily CBCs to monitor for platelet count improvement. (7) Elevated LFTs: Status: Acute Plan: Monitor for continued improvement. (8) Hypoalbuminemia: Status: Acute Plan: The patient did eat breakfast this morning we will continue to encourage him to eat and if he starts showing signs of generalized edema will have him IV albumin if needed. (9) Elevated brain natriuretic peptide (BNP) level: Status: Acute Plan: Repeat BMP again tomorrow as well as chest x-ray. We will diurese if needed. (10) Glaucoma: Status: Acute Plan: Continue dorzolamidetimolol ophthalmic drops. (11) Hyperglycemia: Status: Acute Plan: Check hemoglobin A1c for tomorrow morning. (12) History of malignant neoplasm of prostate: Status: Acute (13) Hx of prostatectomy: Status: Acute Plan: Plan/Recommendations I am considering transferring the patient to a larger facility with multiple specialties if his condition does not improve quickly. We changed the antibiotics yesterday to azithromycin and cefepime. We will assess the effectiveness of this change on today's chest x-ray. The patient is receiving 25% albumin, 100 mg IV daily. We will continue to monitor his progress and adjust treatment as necessary.
[2024-09-19] MEDS: MEGACE PO SCH (09:48)
--- NOTE | 2024-09-19 10:03 | RAD ---
EXAM:Portable AP chestHISTORY:PneumoniaCOMPARISON: [id number]:Re-demonstration of extensive diffuse and confluence airspace involvement of the right lung with slight increase in density/involvement. There is minimal infiltrate in the left base. Heart size remains normal.IMPRESSION:Asymmetric pneumonia, extensive in the right lung and demonstrating slight interval progression since 2 days ago.THIS IS AN ELECTRONICALLY VERIFIED FINAL [id number] 9:45 AM - Electronically signed by Babar Robertson MD
--- NOTE | 2024-09-19 11:39 | PCM.PROG ---
Progress Note Progress Note for Day of Date of Exam: 09/19/24 Subjective Subjective: History/Background Rajesh has a history of pneumonia and is currently being monitored for other complications related to low hemoglobin and platelet levels. He has been experiencing recovery since being admitted for pneumonia treatment. Clinical Observations Rajesh is currently feeling good and is comfortable on heated high flow oxygen. Lung auscultation reveals improved air entry compared to when he was initially admitted, although there is still some coarse sound present. His hemoglobin has dropped from 8.1 to 7.8 today, which is concerning. Platelet count continues to remain low at 53,000 this morning. His vital signs show a heart rate of 64 and blood pressure at 148/70. The patient is also being weaned down on his FiO2 in which he has been moved down from 45 today compared to 52% yesterday. The day before that he was on 80% FiO2. His clinical lung exam is also improving over the last few days which has improved air entry bilaterally and decreasing rhonchi overall. Past Medical Family Social History Allergies: Allergies No Known Allergies Allergy (Verified 09/13/24 14:44) Review of Systems ROS: No change since H&P Vital Signs and I&O's Vital Signs: Vital Signs Temperature 98.1 F Temperature 98.4 F Pulse Rate 86 Pulse Rate 64 Pulse Rate 82 Pulse Rate 84 Pulse Rate 79 Pulse Rate 79 Respiratory Rate 17 Respiratory Rate 16 Respiratory Rate 18 Respiratory Rate 24 Respiratory Rate 24 Respiratory Rate 26 Blood Pressure 148/70 Blood Pressure 138/74 Blood Pressure 135/73 Blood Pressure 144/79 Blood Pressure 143/74 O2 Sat by Pulse Oximetry 99 O2 Sat by Pulse Oximetry 100 O2 Sat by Pulse Oximetry 99 O2 Sat by Pulse Oximetry 99 O2 Sat by Pulse Oximetry 100 O2 Sat by Pulse Oximetry 97 Intake and Output: Intake & Output 09/16/24 09/17/24 09/18/24 09/19/24 11:59 11:59 11:59 11:59 Intake Total 3920 / 3920 2970 / 2970 2540 / 2540 3040 / 3040 Output Total 1800 / 1800 Balance 3920 / 3920 2970 / 2970 2540 / 2540 1240 / 1240 Physical Exam Oriented: Normal, Time, Person and Place Eyes: Normal Nose: Normal Respiratory: Generalized, Diminished and Rhonchi Cardiovascular: Normal Auscultation: Bowel Sounds: Normal Tenderness: Normal Skin: Decreased Turgur Musculoskeletal: Normal Psychiatric: Normal Mood Description: Calm Affect: Normal Speech Pattern: Clear and Appropriate Laboratory and Diagnostics 09/19/24 05:18 09/19/24 05:18 Labs: 09/18/24 09:27 Sputum - Expectorated Sputum - Final 09/14/24 21:40 Blood Blood Culture - Preliminary 09/14/24 21:30 Blood Blood Culture - Preliminary 09/13/24 17:17 Blood Blood Culture - Preliminary 09/13/24 17:08 Blood Blood Culture - Preliminary Laboratory WBC 4.0 X10^3/uL (3.6-10.0) 09/19/24 05:18 RBC 2.22 X10^6/uL (4.7-6.0) L 09/19/24 05:18 Hgb 7.8 g/dL (13.5-18.0) L 09/19/24 05:18 Hct 22.8 % (42.0-54.0) L 09/19/24 05:18 MCV 102.9 fL (80.0-100.0) H 09/19/24 05:18 MCH 35.3 pg (27.0-34.0) H 09/19/24 05:18 MCHC 34.3 g/dL (33.0-35.0) 09/19/24 05:18 RDW 14.8 % (11.6-16.5) 09/19/24 05:18 Plt Count 53 X10^3/uL (150.0-450.0) L 09/19/24 05:18 Plt Count Comment Decreased (ADEQUATE) 09/15/24 04:50 MPV 9.6 fL (7.4-11.0) 09/19/24 05:18 Neut % (Auto) 87.3 % (42.0-75.0) H 09/19/24 05:18 Lymph % (Auto) 9.4 % (21.0-51.0) L 09/19/24 05:18 Divide % (Auto) 2.8 % (0.0-13.0) 09/19/24 05:18 Eos % (Auto) 0.0 % (0.9-2.9) L 09/19/24 05:18 Baso % (Auto) 0.5 % (0.2-1.0) 09/19/24 05:18 Neut # (Auto) 3.5 x10^3/uL (2.2-4.8) 09/19/24 05:18 Lymph # (Auto) 0.4 X10^3/uL (1.3-2.9) L 09/19/24 05:18 Divide # (Auto) 0.1 x10^3/uL (0.3-0.8) L 09/19/24 05:18 Eos # (Auto) 0.0 x10^3/uL (0.0-0.2) 09/19/24 05:18 Baso # (Auto) 0.0 X10^3/uL (0.0-0.1) 09/19/24 05:18 Absolute Nucleated RBC 0.1 /100WBC 09/19/24 05:18 Total Counted 100 09/15/24 04:50 Neutrophils % (Manual) 82 % (39-76) H 09/15/24 04:50 Band Neutrophils % 4 % (0-10) 09/15/24 04:50 Lymphocytes % (Manual) 12 % (13-43) L 09/15/24 04:50 Monocytes % (Manual) 2 % (4-9) L 09/15/24 04:50 Plt Morphology Comment Normal (NORMAL) 09/15/24 04:50 RBC Morphology Abnormal (NORMAL) 09/15/24 04:50 Macrocytosis Slight A 09/15/24 04:50 Sample Site L rad 09/19/24 06:06 ABG pH 7.480 (7.35-7.45) H 09/19/24 06:06 ABG pCO2 30.0 mmHg (35.0-45.0) L 09/19/24 06:06 ABG pO2 74.0 mmHg (80.0-100.0) L 09/19/24 06:06 ABG HCO3 22.3 mmol/L (22-26) 09/19/24 06:06 ABG O2 Saturation 96.0 % (90-100) 09/19/24 06:06 ABG Base Excess -0.4 mmol/L (-2.0-2.0) 09/19/24 06:06 Ziyad Test Pos 09/19/24 06:06 A-a Gradient 266.0 mmHg 09/19/24 06:06 FiO2 53.0 09/19/24 06:06 Blood Gas Comments Griselda well. commercial real estate agent 09/19/24 06:06 Sodium 142 mmol/L (136-145) 09/19/24 05:18 Corrected Sodium 143 mmol/L (136-145) 09/19/24 05:18 Potassium 3.9 mmol/L (3.5-5.1) 09/19/24 05:18 Chloride 111 mmol/L (98-107) H 09/19/24 05:18 Carbon Dioxide 24.2 mmol/L (21-32) 09/19/24 05:18 BUN 19 mg/dL (7-18) H 09/19/24 05:18 Creatinine 1.08 mg/dL (0.70-1.30) 09/19/24 05:18 Est GFR (MDRD) Af Amer > 60 (>60) 09/19/24 05:18 Est GFR (MDRD) Non-Af > 60 (>60) 09/19/24 05:18 Glucose 149 mg/dL (65-99) H 09/19/24 05:18 Hemoglobin A1c 6.9 % 09/15/24 04:50 Lactic Acid 2.0 mmol/L (0.4-2.0) 09/13/24 20:58 Calcium 8.1 mg/dL (8.5-10.1) L 09/19/24 05:18 Corrected Calcium 10.0 mg/dL (8.5-10.1) 09/19/24 05:18 Phosphorus 3.4 mg/dL (2.6-4.7) 09/19/24 05:18 Magnesium 2.4 mg/dL (2.0-2.9) 09/19/24 05:18 Iron 62 ug/dL (50-175) 09/19/24 05:18 TIBC 107 ug/dL (250-450) L 09/19/24 05:18 Transferrin 71 mg/dL (202-364) L 09/19/24 05:18 Ferritin 4685 ng/mL (26-388) H 09/19/24 05:18 Total Bilirubin 0.80 mg/dL (0.2-1.0) 09/19/24 05:18 AST 84 Units/L (15-37) H 09/19/24 05:18 ALT 57 Units/L (12-78) 09/19/24 05:18 Alkaline Phosphatase 54 Units/L (46-116) 09/19/24 05:18 C-Reactive Protein 323.90 mg/L (0-3.0) H 09/13/24 14:52 B-Natriuretic Peptide 135 pg/mL (0-79) H 09/17/24 04:50 Total Protein 5.4 g/dL (6.4-8.2) L 09/19/24 05:18 Albumin 1.6 g/dL (3.4-5.0) L 09/19/24 05:18 Globulin 3.8 g/dL (2.5-4.5) 09/19/24 05:18 Albumin/Globulin Ratio 0.4 Ratio (1.1-2.1) L 09/19/24 05:18 Vitamin B12 1707 pg/mL (193-986) H 09/19/24 05:18 Folate 6.3 ng/mL (>8.6) L 09/19/24 05:18 Specimen Type Clean catch urine 09/13/24 19:29 Urine Color Yellow (YELLOW) 09/13/24 19: Urine Appearance Hazy (CLEAR) 09/13/24 19: Urine pH 6.0 (5.0 - 8.0) 09/13/24 19: Ur Specific [place] 1.020 (1.000-1.030) 09/13/24 19:29 Urine Protein 3+ (NEGATIVE) 09/13/24 19: Urine Glucose (UA) Negative (NEGATIVE) 09/13/24 19: Urine Ketones Negative (NEGATIVE) 09/13/24 19: Urine Blood 5+ (NEGATIVE) 09/13/24 19: Urine Nitrite Negative (NEGATIVE) 09/13/24 19: Urine Bilirubin Negative (NEGATIVE) 09/13/24 19: Urine Urobilinogen 2+ (NORMAL) 09/13/24 19: Ur Leukocyte Esterase Negative (NEGATIVE) 09/13/24 19: Urine RBC 0-2 /HPF (0-3) 09/13/24 19:29 Urine WBC 0-2 /HPF (0-5) 09/13/24 19:29 Ur Squamous Epith Cells Rare /HPF (NEGATIVE) 09/13/24 19: Amorphous Sediment 1+ /HPF (NEGATIVE) 09/13/24 19:29 Urine Bacteria Trace /HPF (NEGATIVE) 09/13/24 19:29 Granular Casts Moderate /LPF (NEGATIVE) 09/13/24 19:29 Ur Culture Indicated? No/not indicated 09/13/24 19:29 SARS-CoV-2 (PCR) Negative (NEGATIVE) 09/13/24 14:56 Influenza Type A (PCR) Negative (NEGATIVE) 09/13/24 14:56 Influenza Type B (PCR) Negative (NEGATIVE) 09/13/24 14:56 RSV (PCR) Negative (NEGATIVE) 09/13/24 14:56 Resp Viral Panel (PCR) See scanned report 09/13/24 20:10 Blood Type O POSITIVE 09/19/24 09:40 Antibody Screen Negative 09/19/24 09:40 Crossmatch See Detail 09/19/24 09:40 Plan (1) Right lower lobe pneumonia: Status: Acute Qualifiers: Pneumonia type: due to unspecified organism Qualified Code(s): J18.9 - Pneumonia, unspecified organism Plan: Follow-up with sputum cultures, IV Levaquin. We will also continue jet nebs and inhaled budesonide. HHF oxygen (2) Atrial fibrillation with RVR: Status: Acute Plan: Continue Eliquis at this time. (3) Dehydration: Status: Acute Plan: Continue IV normal saline hydration at this time. (4) Hyponatremia: Status: Acute Plan: Continue hydration therapy with normal saline IV fluid. (5) Essential hypertension: Status: Acute Plan: Resume the patient's losartan 25 mg daily. He is also receiving Cardizem 240 mg p.o. daily for atrial fibrillation. (6) Thrombocytopenia: Status: Acute Plan: Follow daily CBCs to monitor for platelet count improvement. (7) Elevated LFTs: Status: Acute Plan: Monitor for continued improvement. (8) Hypoalbuminemia: Status: Acute Plan: The patient did eat breakfast this morning we will continue to encourage him to eat and if he starts showing signs of generalized edema will have him IV albumin if needed. (9) Elevated brain natriuretic peptide (BNP) level: Status: Acute Plan: Repeat BMP again tomorrow as well as chest x-ray. We will diurese if needed. (10) Glaucoma: Status: Acute Plan: Continue dorzolamidetimolol ophthalmic drops. (11) Hyperglycemia: Status: Acute Plan: Check hemoglobin A1c for tomorrow morning. (12) History of malignant neoplasm of prostate: Status: Acute (13) Hx of prostatectomy: Status: Acute Plan: Plan/Recommendations Plan to continue monitoring Rajesh's hemoglobin and platelet levels. We will transfuse the patient with 1 unit of packed red blood cells today and premedicating with Tylenol and Benadryl. We will check Vitamin B12 and folate levels to rule out deficiencies contributing to macrocytosis. Rajesh's nutritional intake will be emphasized to assist in infection recovery and strength. Encourage him to sit up in a chair today as part of his recovery. Protonix will be increased to 40 mg IV BID due to changes in his hemoglobin levels. Since the patient is still not eating a lot I will start him on Megace 40 mg twice daily.
[2024-09-19] MEDS: MEGACE PO ONE (12:34)
[2024-09-19] MEDS: TYLENOL 325 MG TAB PO NR (13:58)
[2024-09-19] MEDS: BENADRYL CAP/TAB 25 MG PO NR (13:58)
[2024-09-19] MEDS: NS 250 ML IV 250 ML IV ONE (17:45)
--- NOTE | 2024-09-19 18:12 | RAD ---
EXAM:CHEST, 1 VIEWHISTORY:PNEUMONIA; GERD, HTN, RENAL DISEASE SX: PROSTATECOMPARISON:Prior study or studies were utilized for comparison during interpretation with the most relevant dated yesterdayTECHNIQUE:CHEST, 1 VIEWFINDINGS:Chest:Lines and tubes: NoneMediastinum: Cardiac and mediastinal shadow is within normal limits for size and contour.Pulmonary vessels: No pulmonary vascular congestion.Lung banda: Airspace consolidations are seen throughout the right lungPleura: No effusion. No pneumothorax.Bones and soft tissues: No acute osseous or soft tissue abnormality.IMPRESSION:1. Right pneumonia without significant change from yesterdayTHIS IS AN ELECTRONICALLY VERIFIED FINAL [id number] 6:09 PM - Electronically signed by Drew Cosby MD
[2024-09-19 20:17] LABS: HEMATOCRIT 27.8 % (42.0-54.0)
[2024-09-19 20:22] LABS: HEMOGLOBIN 9.9 g/dL (13.5-18.0)
[2024-09-19] MEDS: PROTONIX INJ 40 MG VIAL IVP SCH (20:44)
[2024-09-20 05:11] LABS: BASOPHILS % (AUTO) 0.2 % (0.2-1.0); HEMOGLOBIN 9.3 g/dL (13.5-18.0); LYMPHOCYTES # (AUTO) 0.5 X10^3/uL (1.3-2.9); MEAN CORPUSCULAR HEMOGLOBIN 34.9 pg (27.0-34.0); MEAN CORPUSCULAR HGB CONC 34.6 g/dL (33.0-35.0); MEAN PLATELET VOLUME 8.6 fL (7.4-11.0); MONOCYTES # (AUTO) 0.2 x10^3/uL (0.3-0.8); MONOCYTES % (AUTO) 2.9 % (0.0-13.0); NEUTROPHILS # (AUTO) 4.5 x10^3/uL (2.2-4.8); NEUTROPHILS % (AUTO) 87.9 % (42.0-75.0); PLATELET COUNT 47 X10^3/uL (150.0-450.0); RED BLOOD COUNT 2.68 X10^6/uL (4.7-6.0); RED CELL DISTRIBUTION WIDTH 16.4 % (11.6-16.5); WHITE BLOOD COUNT 5.1 X10^3/uL (3.6-10.0)
[2024-09-20 05:22] LABS: ALANINE AMINOTRANSFERASE 57 Units/L (12-78); ALKALINE PHOSPHATASE 61 Units/L (46-116); ASPARTATE AMINO TRANSFERASE 64 Units/L (15-37); BLOOD UREA NITROGEN 22 mg/dL (7-18); CALCIUM 8.3 mg/dL (8.5-10.1); CARBON DIOXIDE 26.1 mmol/L (21-32); CHLORIDE 111 mmol/L (98-107); COR CA(FOR HYPOALB) 9.9 mg/dL (8.5-10.1); COR NA(FOR HYPERGLY) 144 mmol/L (136-145); GLUCOSE 149 mg/dL (65-99); POTASSIUM 4.3 mmol/L (3.5-5.1); SODIUM 143 mmol/L (136-145); TOTAL PROTEIN 5.6 g/dL (6.4-8.2); eGFR NON BLACK RACES > 60 (>60)
[2024-09-20] MEDS ORDERED: ELIQUIS PO SCH (09:00)
[2024-09-20] MEDS ORDERED: MUCOMYST 20% 200 MG/ML NEB SCH (09:30)
[2024-09-20] MEDS: MUCOMYST (RESPIRATORY USE ONLY) ONE (09:33)
[2024-09-20] MEDS: MUCOMYST (RESPIRATORY USE ONLY) NEB SCH (09:41)
--- NOTE | 2024-09-20 09:50 | US ---
EXAMINATION:LIVERHISTORY:ABNORMAL LIVER LABWORK; .COMPARISON STUDY:None.TECHNIQUE:Real-time grayscale, color flow, duplex Doppler spectral analysis ultrasound right upper abdominal quadrantFINDINGS:The liver is enlarged measuring 17 cm longitudinal oblique dimension. The liver generally has a homogeneous echotexture. No focal lesions identified. Normal venous waveforms within the main portal vein. The right hepatic and central hepatic veins demonstrate normal blood flow on the color flow images.The gallbladder is mildly distended. Gallbladder oro measure 1.7 mm diameter. Common bile duct measures 2.4 mm diameter. No intrahepatic bile duct dilatation.Pancreas not visualized.Incidental right pleural effusion.IMPRESSION:Mild hepatomegaly.Normal appearance of the biliary tract.Pancreas not visualized.Right pleural effusion.THIS IS AN ELECTRONICALLY VERIFIED FINAL [id number] 9:47 AM - Electronically signed by Veronica Fowler MD
[2024-09-21 05:36] LABS: HEMATOCRIT 26.9 % (42.0-54.0); HEMOGLOBIN 9.3 g/dL (13.5-18.0); LYMPHOCYTES # (AUTO) 0.5 X10^3/uL (1.3-2.9); LYMPHOCYTES % (AUTO) 9.1 % (21.0-51.0); RED BLOOD COUNT 2.66 X10^6/uL (4.7-6.0)
[2024-09-21 05:46] LABS: BASOPHILS % (AUTO) 0.4 % (0.2-1.0); MEAN CORPUSCULAR HGB CONC 34.6 g/dL (33.0-35.0); MEAN CORPUSCULAR VOLUME 101.2 fL (80.0-100.0); MEAN PLATELET VOLUME 8.8 fL (7.4-11.0); MONOCYTES # (AUTO) 0.1 x10^3/uL (0.3-0.8); MONOCYTES % (AUTO) 1.6 % (0.0-13.0); NEUTROPHILS # (AUTO) 4.7 x10^3/uL (2.2-4.8); NEUTROPHILS % (AUTO) 88.9 % (42.0-75.0); PLATELET COUNT 44 X10^3/uL (150.0-450.0); RED CELL DISTRIBUTION WIDTH 15.8 % (11.6-16.5); WHITE BLOOD COUNT 5.2 X10^3/uL (3.6-10.0)
[2024-09-21 05:53] LABS: ALANINE AMINOTRANSFERASE 56 Units/L (12-78); ALBUMIN 2.3 g/dL (3.4-5.0); ALKALINE PHOSPHATASE 68 Units/L (46-116); ASPARTATE AMINO TRANSFERASE 41 Units/L (15-37); BLOOD UREA NITROGEN 27 mg/dL (7-18); CALCIUM 8.4 mg/dL (8.5-10.1); CARBON DIOXIDE 25.5 mmol/L (21-32); CHLORIDE 112 mmol/L (98-107); COR CA(FOR HYPOALB) 9.8 mg/dL (8.5-10.1); COR NA(FOR HYPERGLY) 146 mmol/L (136-145); CREATININE 1.06 mg/dL (0.70-1.30); GLUCOSE 156 mg/dL (65-99); POTASSIUM 4.3 mmol/L (3.5-5.1); SODIUM 145 mmol/L (136-145); TOTAL PROTEIN 5.6 g/dL (6.4-8.2); eGFR NON BLACK RACES > 60 (>60)
[2024-09-21 06:40] LABS: BASOPHILS % (MANUAL) 0 % (0-1); PLATELET MORPHOLOGY COMMENT NORMAL (NORMAL); TARGET CELLS SLIGHT
[2024-09-21 06:41] LABS: SCHISTOCYTES SLIGHT
--- NOTE | 2024-09-21 08:51 | PCM.PROG ---
Progress Note Progress Note for Day of Date of Exam: 09/20/24 Subjective Subjective: Rajesh has a significant history of heavy drinking over 50 years but reportedly has not consumed alcohol for the past 10 years. He's currently dealing with elevated bilirubin (from 0.8 to 1.1), low hemoglobin (9.3), and low platelet count (47,000). He was previously treated with Levaquin, and now is on cefepime and azithromycin since Tuesday. Rajesh also has a history of pneumonia, which was noted on chest x-ray, and currently exhibits signs that could suggest a mucus plug in the right lung with an improvement in the left lung. The patient's vital signs show blood pressure at 153/73, heart rate at 60, and oxygen saturation at 95%. He is currently on HHF with a higher FIO2 setting compared to yesterdays' levels. Rajesh exhibited good air movement in the lungs, although there are concerns about a possible mucus plug causing difficulty in coughing. Clinical assessment reveals he is feeling better today and has shown improvement in appetite. Past Medical Family Social History Allergies: Allergies No Known Allergies Allergy (Verified 09/13/24 14:44) Review of Systems ROS: No change since H&P Vital Signs and I&O's Vital Signs: Vital Signs Temperature 97.7 F Temperature 98.3 F Pulse Rate 79 Pulse Rate 86 Pulse Rate 84 Pulse Rate 79 Pulse Rate 81 Pulse Rate 67 Pulse Rate 74 Pulse Rate 60 Pulse Rate 56 Respiratory Rate 21 Respiratory Rate 19 Respiratory Rate 16 Respiratory Rate 13 Respiratory Rate 22 Respiratory Rate 19 Respiratory Rate 15 Respiratory Rate 17 Respiratory Rate 23 Blood Pressure 156/74 Blood Pressure 132/92 Blood Pressure 133/72 Blood Pressure 135/65 Blood Pressure 149/77 Blood Pressure 155/75 Blood Pressure 153/73 Blood Pressure 169/82 O2 Sat by Pulse Oximetry 96 O2 Sat by Pulse Oximetry 96 O2 Sat by Pulse Oximetry 96 O2 Sat by Pulse Oximetry 95 O2 Sat by Pulse Oximetry 95 O2 Sat by Pulse Oximetry 94 O2 Sat by Pulse Oximetry 93 O2 Sat by Pulse Oximetry 98 O2 Sat by Pulse Oximetry 97 Intake and Output: Intake & Output 09/18/24 09/19/24 09/20/24 09/21/24 11:59 11:59 11:59 11:59 Intake Total 2540 / 2540 3040 / 3040 810 / 810 Output Total 1800 / 1800 250 / 250 Balance 2540 / 2540 1240 / 1240 560 / 560 Physical Exam Oriented: Normal, Time, Person and Place Eyes: Normal Nose: Normal Respiratory: Generalized, Diminished and Rhonchi Cardiovascular: Normal Auscultation: Bowel Sounds: Normal Tenderness: Normal Skin: Decreased Turgur Musculoskeletal: Normal Psychiatric: Normal Mood Description: Calm Affect: Normal Speech Pattern: Clear and Appropriate Laboratory and Diagnostics 09/21/24 05:02 09/21/24 05:02 Labs: 09/14/24 21:40 Blood Blood Culture - Final 09/14/24 21:30 Blood Blood Culture - Final 09/18/24 09:27 Sputum - Expectorated Sputum Sputum Culture - Preliminary 09/18/24 09:27 Sputum - Expectorated Sputum - Final 09/13/24 17:17 Blood Blood Culture - Final 09/13/24 17:08 Blood Blood Culture - Final Laboratory WBC 5.1 X10^3/uL (3.6-10.0) 09/20/24 04:43 RBC 2.68 X10^6/uL (4.7-6.0) L 09/20/24 04:43 Hgb 9.3 g/dL (13.5-18.0) L 09/20/24 04:43 Hct 27.0 % (42.0-54.0) L 09/20/24 04:43 MCV 101.0 fL (80.0-100.0) H 09/20/24 04:43 MCH 34.9 pg (27.0-34.0) H 09/20/24 04:43 MCHC 34.6 g/dL (33.0-35.0) 09/20/24 04:43 RDW 16.4 % (11.6-16.5) 09/20/24 04:43 Plt Count 47 X10^3/uL (150.0-450.0) L 09/20/24 04:43 Plt Count Comment Decreased (ADEQUATE) 09/15/24 04:50 MPV 8.6 fL (7.4-11.0) 09/20/24 04:43 Neut % (Auto) 87.9 % (42.0-75.0) H 09/20/24 04:43 Lymph % (Auto) 9.0 % (21.0-51.0) L 09/20/24 04:43 [place] % (Auto) 2.9 % (0.0-13.0) 09/20/24 04:43 Eos % (Auto) 0.0 % (0.9-2.9) L 09/20/24 04:43 Baso % (Auto) 0.2 % (0.2-1.0) 09/20/24 04:43 Neut # (Auto) 4.5 x10^3/uL (2.2-4.8) 09/20/24 04:43 Lymph # (Auto) 0.5 X10^3/uL (1.3-2.9) L 09/20/24 04:43 [place] # (Auto) 0.2 x10^3/uL (0.3-0.8) L 09/20/24 04:43 Eos # (Auto) 0.0 x10^3/uL (0.0-0.2) 09/20/24 04:43 Baso # (Auto) 0.0 X10^3/uL (0.0-0.1) 09/20/24 04:43 Absolute Nucleated RBC 0.1 /100WBC 09/20/24 04:43 Total Counted 100 09/15/24 04:50 Neutrophils % (Manual) 82 % (39-76) H 09/15/24 04:50 Band Neutrophils % 4 % (0-10) 09/15/24 04:50 Lymphocytes % (Manual) 12 % (13-43) L 09/15/24 04:50 Monocytes % (Manual) 2 % (4-9) L 09/15/24 04:50 Plt Morphology Comment Normal (NORMAL) 09/15/24 04:50 RBC Morphology Abnormal (NORMAL) 09/15/24 04:50 Macrocytosis Slight A 09/15/24 04:50 Sample Site L rad 09/19/24 06:06 ABG pH 7.480 (7.35-7.45) H 09/19/24 06:06 ABG pCO2 30.0 mmHg (35.0-45.0) L 09/19/24 06:06 ABG pO2 74.0 mmHg (80.0-100.0) L 09/19/24 06:06 ABG HCO3 22.3 mmol/L (22-26) 09/19/24 06:06 ABG O2 Saturation 96.0 % (90-100) 09/19/24 06:06 ABG Base Excess -0.4 mmol/L (-2.0-2.0) 09/19/24 06:06 Ziyad Test Pos 09/19/24 06:06 A-a Gradient 266.0 mmHg 09/19/24 06:06 FiO2 53.0 09/19/24 06:06 Blood Gas Comments Griselda well. investment recovery technician 09/19/24 06:06 Sodium 143 mmol/L (136-145) 09/20/24 04:43 Corrected Sodium 144 mmol/L (136-145) 09/20/24 04:43 Potassium 4.3 mmol/L (3.5-5.1) 09/20/24 04:43 Chloride 111 mmol/L (98-107) H 09/20/24 04:43 Carbon Dioxide 26.1 mmol/L (21-32) 09/20/24 04:43 BUN 22 mg/dL (7-18) H 09/20/24 04:43 Creatinine 1.10 mg/dL (0.70-1.30) 09/20/24 04:43 Est GFR (MDRD) Af Amer > 60 (>60) 09/20/24 04:43 Est GFR (MDRD) Non-Af > 60 (>60) 09/20/24 04:43 Glucose 149 mg/dL (65-99) H 09/20/24 04:43 Hemoglobin A1c 6.9 % 09/15/24 04:50 Lactic Acid 2.0 mmol/L (0.4-2.0) 09/13/24 20:58 Calcium 8.3 mg/dL (8.5-10.1) L 09/20/24 04:43 Corrected Calcium 9.9 mg/dL (8.5-10.1) 09/20/24 04:43 Phosphorus 3.4 mg/dL (2.6-4.7) 09/19/24 05:18 Magnesium 2.4 mg/dL (2.0-2.9) 09/19/24 05:18 Iron 62 ug/dL (50-175) 09/19/24 05:18 TIBC 107 ug/dL (250-450) L 09/19/24 05:18 Transferrin 71 mg/dL (202-364) L 09/19/24 05:18 Ferritin 4685 ng/mL (26-388) H 09/19/24 05:18 Total Bilirubin 1.10 mg/dL (0.2-1.0) H 09/20/24 04:43 Direct Bilirubin 0.30 mg/dL (0-0.2) H 09/19/24 05:18 AST 64 Units/L (15-37) H 09/20/24 04:43 ALT 57 Units/L (12-78) 09/20/24 04:43 Alkaline Phosphatase 61 Units/L (46-116) 09/20/24 04:43 C-Reactive Protein 323.90 mg/L (0-3.0) H 09/13/24 14:52 B-Natriuretic Peptide 135 pg/mL (0-79) H 09/17/24 04:50 Total Protein 5.6 g/dL (6.4-8.2) L 09/20/24 04:43 Albumin 2.0 g/dL (3.4-5.0) L 09/20/24 04:43 Globulin 3.6 g/dL (2.5-4.5) 09/20/24 04:43 Albumin/Globulin Ratio 0.6 Ratio (1.1-2.1) L 09/20/24 04:43 Vitamin B12 1707 pg/mL (193-986) H 09/19/24 05:18 Folate 6.3 ng/mL (>8.6) L 09/19/24 05:18 Specimen Type Clean catch urine 09/13/24 19:29 Urine Color Yellow (YELLOW) 09/13/24 19:29 Urine Appearance Hazy (CLEAR) 09/13/24 19:29 Urine pH 6.0 (5.0 - 8.0) 09/13/24 19:29 Ur Specific [place] 1.020 (1.000-1.030) 09/13/24 19:29 Urine Protein 3+ (NEGATIVE) 09/13/24 19:29 Urine Glucose (UA) Negative (NEGATIVE) 09/13/24 19:29 Urine Ketones Negative (NEGATIVE) 09/13/24 19:29 Urine Blood 5+ (NEGATIVE) 09/13/24 19:29 Urine Nitrite Negative (NEGATIVE) 09/13/24 19:29 Urine Bilirubin Negative (NEGATIVE) 09/13/24 19:29 Urine Urobilinogen 2+ (NORMAL) 09/13/24 19:29 Ur Leukocyte Esterase Negative (NEGATIVE) 09/13/24 19:29 Urine RBC 0-2 /HPF (0-3) 09/13/24 19:29 Urine WBC 0-2 /HPF (0-5) 09/13/24 19:29 Ur Squamous Epith Cells Rare /HPF (NEGATIVE) 09/13/24 19:29 Amorphous Sediment 1+ /HPF (NEGATIVE) 09/13/24 19:29 Urine Bacteria Trace /HPF (NEGATIVE) 09/13/24 19:29 Granular Casts Moderate /LPF (NEGATIVE) 09/13/24 19:29 Ur Culture Indicated? No/not indicated 09/13/24 19:29 SARS-CoV-2 (PCR) Negative (NEGATIVE) 09/13/24 14:56 Influenza Type A (PCR) Negative (NEGATIVE) 09/13/24 14:56 Influenza Type B (PCR) Negative (NEGATIVE) 09/13/24 14:56 RSV (PCR) Negative (NEGATIVE) 09/13/24 14:56 Resp Viral Panel (PCR) See scanned report 09/13/24 20:10 Blood Type O POSITIVE 09/19/24 09:40 Antibody Screen Negative 09/19/24 09:40 Crossmatch See Detail 09/19/24 09:40 Plan (1) Right lower lobe pneumonia: Status: Acute Qualifiers: Pneumonia type: due to unspecified organism Qualified Code(s): J18.9 - Pneumonia, unspecified organism (2) Atrial fibrillation with RVR: Status: Resolved Plan: Continue Eliquis at this time. (3) Dehydration: Status: Resolved Plan: Continue IV normal saline hydration at this time. (4) Hyponatremia: Status: Resolved Plan: Continue hydration therapy with normal saline IV fluid. (5) Essential hypertension: Status: Acute Plan: Continue: Cardizem 240 mg p.o. daily Restart the patient on losartan 25 mg 1 p.o. daily since he has had an increase in his blood pressure now and is currently on control. (6) Thrombocytopenia: Status: Acute Plan: Follow daily CBCs to monitor for platelet count improvement. (7) Elevated LFTs: Status: Acute Narrative Support Text: Gallbladder ultrasound: Diagnosis abnormal liver lab work Findings: The patient's liver ultrasound today shows that he has an enlarged liver at 17 cm longitudinally/oblique dimension. There were no focal lesions identified. He had normal venous waveforms within the main portal vein. The right hepatic Acitra hepatic veins demonstrated normal blood flow on color flow images. The gallbladder is mildly distended. Gallbladder wall measured 1.7 mm in diameter. Common bile duct measures 2.8 mm in diameter. No intrahepatic bile duct dilatation. The pancreas was not visualized. Incidental right pleural effusion. Impression: Mild hepatomegaly Normal appearance of biliary tract Pancreas not visualized Right pleural effusion Plan: Monitor for continued improvement. (8) Hypoalbuminemia: Status: Acute Plan: 25% albumin 100 mL IV daily. Encourage the patient to eat more. Megace 40 mg p.o. twice daily was started to help get the patient's protein and albumin levels increased. (9) Elevated brain natriuretic peptide (BNP) level: Status: Acute Plan: Repeat BMP again tomorrow as well as chest x-ray. We will diurese if needed. (10) Glaucoma: Status: Acute Plan: Continue dorzolamidetimolol ophthalmic drops. (11) Hyperglycemia: Status: Acute (12) History of malignant neoplasm of prostate: Status: Acute (13) Hx of prostatectomy: Status: Acute (14) Hyperbilirubinemia: Status: Acute (15) Chronic idiopathic thrombocytopenia: Status: Acute Plan: 1. The plan includes continuing antibiotic therapy with cefepime and azithromycin for ongoing treatment of pneumonia. 2. Mucinex will be added to help thin mucus and facilitate coughing. 3. Add Mucomyst to patient's nebulizer treatments. 4. Chest physiotherapy will continue to assist with mobilizing secretions. 5. A hematological workup is needed to explore causes for an ongoing drop in platelets and rising bilirubin levels, including Flora tests for potential hemolysis. 6. Folic acid supplementation (1 mg PO daily will be initiated due to low folate levels. 7. Repeat chest x-ray is indicated to monitor lung status.
[2024-09-21] MEDS ORDERED: VALIUM INJ ONE (09:02)
[2024-09-21] MEDS: VALIUM INJ IVP PRN (09:05)
[2024-09-21 09:38] LABS: ABG ALLEN TEST POS; ABG BASE EXCESS -0.3 mmol/L (-2.0-2.0); ABG HCO3 22.6 mmol/L (22-26)
[2024-09-21] MEDS: COZAAR PO SCH (11:17)
[2024-09-21 13:34] LABS: ABG BASE EXCESS -1.1 mmol/L (-2.0-2.0); ABG HCO3 23.5 mmol/L (22-26)
[2024-09-21 13:35] LABS: ABG PO2 < 37.0 mmHg (80.0-100.0)
[2024-09-21] MEDS: NICOTINE PATCH TD SCH (14:14)
[2024-09-21] MEDS: MUCINEX EXPECTORANT PO SCH (14:15)
[2024-09-21] MEDS: COZAAR ONE (16:22)
--- NOTE | 2024-09-21 19:31 | PCM.PROG ---
Progress Note Progress Note for Day of Date of Exam: 09/21/24 Subjective Subjective: The patient reports feeling fine and appears comfortable. He's smiling and communicating well. Breathing has improved with BiPAP therapy, though he dislikes the mask. Lung auscultation reveals rhonchi in both lung banda, more pronounced in the right. The patient denied feeling short of breath this morning. Blood pressure has been elevated, particularly at night. Oxygen requirements have fluctuated: Tuesday 80%, Tuesday 52%, Tuesday down to 40% but increased later, and back up to 52%. There's suspicion of mucus plugs on Tuesday and . The patient is moving air adequately despite coarse breath sounds. Overall, he looks better than last week, though he has progressed slowly and steadily since his admission last week. The current FiO2 is 47% tonight, and the patient is currently on high-heated flow. Past Medical Family Social History Past Med/Fam/Surg Hx: No changes since H&P Allergies: Allergies No Known Allergies Allergy (Verified 09/13/24 14:44) Review of Systems ROS: No change since H&P Vital Signs and I&O's Vital Signs: Vital Signs Temperature 97.8 F Temperature 97.8 F Temperature 98.0 F Pulse Rate 79 Pulse Rate 93 Pulse Rate 80 Pulse Rate 77 Pulse Rate 73 Pulse Rate 68 Pulse Rate 50 Pulse Rate 55 Pulse Rate 67 Respiratory Rate 36 Respiratory Rate 17 Respiratory Rate 18 Respiratory Rate 20 Respiratory Rate 24 Respiratory Rate 22 Respiratory Rate 15 Respiratory Rate 15 Respiratory Rate 16 Blood Pressure 159/83 Blood Pressure 148/74 Blood Pressure 128/72 Blood Pressure 170/79 Blood Pressure 163/77 Blood Pressure 159/85 Blood Pressure 163/82 Blood Pressure 168/79 O2 Sat by Pulse Oximetry 100 O2 Sat by Pulse Oximetry 92 O2 Sat by Pulse Oximetry 92 O2 Sat by Pulse Oximetry 95 O2 Sat by Pulse Oximetry 95 O2 Sat by Pulse Oximetry 95 O2 Sat by Pulse Oximetry 97 O2 Sat by Pulse Oximetry 95 O2 Sat by Pulse Oximetry 92 Intake and Output: Intake & Output 09/18/24 09/19/24 09/20/24 09/21/24 11:59 11:59 11:59 11:59 Intake Total 2540 / 2540 3040 / 3040 810 / 810 2914 / 2914 Output Total 1800 / 1800 250 / 250 1700 / 1700 Balance 2540 / 2540 1240 / 1240 560 / 560 1214 / 1214 Physical Exam Oriented: Normal, Time, Person and Place Eyes: Normal Nose: Normal Respiratory: Generalized, Diminished and Rhonchi Cardiovascular: Normal Auscultation: Bowel Sounds: Normal Tenderness: Normal Skin: Decreased Turgur Musculoskeletal: Normal Psychiatric: Normal Mood Description: Calm Affect: Normal Speech Pattern: Appropriate and Unclear Laboratory and Diagnostics 09/21/24 05:02 09/21/24 05:02 Labs: 09/14/24 21:40 Blood Blood Culture - Final 09/14/24 21:30 Blood Blood Culture - Final 09/18/24 09:27 Sputum - Expectorated Sputum Sputum Culture - Preliminary 09/18/24 09:27 Sputum - Expectorated Sputum - Final 09/13/24 17:17 Blood Blood Culture - Final 09/13/24 17:08 Blood Blood Culture - Final Laboratory WBC 5.2 X10^3/uL (3.6-10.0) 09/21/24 05:02 RBC 2.66 X10^6/uL (4.7-6.0) L 09/21/24 05:02 Hgb 9.3 g/dL (13.5-18.0) L 09/21/24 05:02 Hct 26.9 % (42.0-54.0) L 09/21/24 05:02 MCV 101.2 fL (80.0-100.0) H 09/21/24 05:02 MCH 35.0 pg (27.0-34.0) H 09/21/24 05:02 MCHC 34.6 g/dL (33.0-35.0) 09/21/24 05:02 RDW 15.8 % (11.6-16.5) 09/21/24 05:02 Plt Count 44 X10^3/uL (150.0-450.0) L 09/21/24 05:02 Plt Count Comment Decreased (ADEQUATE) 09/21/24 05:02 MPV 8.8 fL (7.4-11.0) 09/21/24 05:02 Neut % (Auto) 88.9 % (42.0-75.0) H 09/21/24 05:02 Lymph % (Auto) 9.1 % (21.0-51.0) L 09/21/24 05:02 [place] % (Auto) 1.6 % (0.0-13.0) 09/21/24 05:02 Eos % (Auto) 0.0 % (0.9-2.9) L 09/21/24 05:02 Baso % (Auto) 0.4 % (0.2-1.0) 09/21/24 05:02 Neut # (Auto) 4.7 x10^3/uL (2.2-4.8) 09/21/24 05:02 Lymph # (Auto) 0.5 X10^3/uL (1.3-2.9) L 09/21/24 05:02 [place] # (Auto) 0.1 x10^3/uL (0.3-0.8) L 09/21/24 05:02 Eos # (Auto) 0.0 x10^3/uL (0.0-0.2) 09/21/24 05:02 Baso # (Auto) 0.0 X10^3/uL (0.0-0.1) 09/21/24 05:02 Absolute Nucleated RBC 0.1 /100WBC 09/21/24 05:02 Total Counted 100 09/21/24 05:02 Neutrophils % (Manual) 94 % (39-76) H 09/21/24 05:02 Band Neutrophils % 4 % (0-10) 09/15/24 04:50 Lymphocytes % (Manual) 5 % (13-43) L 09/21/24 05:02 Monocytes % (Manual) 1 % (4-9) L 09/21/24 05:02 Eosinophils % (Manual) 0 % (0-6) 09/21/24 05:02 Basophils % (Manual) 0 % (0-1) 09/21/24 05:02 Plt Morphology Comment Normal (NORMAL) 09/21/24 05:02 RBC Morphology Abnormal (NORMAL) 09/21/24 05:02 Macrocytosis Slight A 09/21/24 05:02 Target Cells Slight A 09/21/24 05:02 Schistocytes Slight A 09/21/24 05:02 Sample Site L rad 09/19/24 06:06 ABG pH 7.480 (7.35-7.45) H 09/19/24 06:06 ABG pCO2 30.0 mmHg (35.0-45.0) L 09/19/24 06:06 ABG pO2 74.0 mmHg (80.0-100.0) L 09/19/24 06:06 ABG HCO3 22.3 mmol/L (22-26) 09/19/24 06:06 ABG O2 Saturation 96.0 % (90-100) 09/19/24 06:06 ABG Base Excess -0.4 mmol/L (-2.0-2.0) 09/19/24 06:06 Ziyad Test Pos 09/19/24 06:06 A-a Gradient 266.0 mmHg 09/19/24 06:06 FiO2 53.0 09/19/24 06:06 Blood Gas Comments Griselda well. cna ltc 09/19/24 06:06 Sodium 145 mmol/L (136-145) 09/21/24 05:02 Corrected Sodium 146 mmol/L (136-145) H 09/21/24 05:02 Potassium 4.3 mmol/L (3.5-5.1) 09/21/24 05:02 Chloride 112 mmol/L (98-107) H 09/21/24 05:02 Carbon Dioxide 25.5 mmol/L (21-32) 09/21/24 05:02 BUN 27 mg/dL (7-18) H 09/21/24 05:02 Creatinine 1.06 mg/dL (0.70-1.30) 09/21/24 05:02 Est GFR (MDRD) Af Amer > 60 (>60) 09/21/24 05:02 Est GFR (MDRD) Non-Af > 60 (>60) 09/21/24 05:02 Glucose 156 mg/dL (65-99) H 09/21/24 05:02 Hemoglobin A1c 6.9 % 09/15/24 04:50 Lactic Acid 2.0 mmol/L (0.4-2.0) 09/13/24 20:58 Calcium 8.4 mg/dL (8.5-10.1) L 09/21/24 05:02 Corrected Calcium 9.8 mg/dL (8.5-10.1) 09/21/24 05:02 Phosphorus 3.4 mg/dL (2.6-4.7) 09/19/24 05:18 Magnesium 2.4 mg/dL (2.0-2.9) 09/19/24 05:18 Iron 62 ug/dL (50-175) 09/19/24 05:18 TIBC 107 ug/dL (250-450) L 09/19/24 05:18 Transferrin 71 mg/dL (202-364) L 09/19/24 05:18 Ferritin 4685 ng/mL (26-388) H 09/19/24 05:18 Total Bilirubin 1.20 mg/dL (0.2-1.0) H 09/21/24 05:02 Direct Bilirubin 0.30 mg/dL (0-0.2) H 09/19/24 05:18 AST 41 Units/L (15-37) H 09/21/24 05:02 ALT 56 Units/L (12-78) 09/21/24 05:02 Alkaline Phosphatase 68 Units/L (46-116) 09/21/24 05:02 C-Reactive Protein 323.90 mg/L (0-3.0) H 09/13/24 14:52 B-Natriuretic Peptide 135 pg/mL (0-79) H 09/17/24 04:50 Total Protein 5.6 g/dL (6.4-8.2) L 09/21/24 05:02 Albumin 2.3 g/dL (3.4-5.0) L 09/21/24 05:02 Globulin 3.3 g/dL (2.5-4.5) 09/21/24 05:02 Albumin/Globulin Ratio 0.7 Ratio (1.1-2.1) L 09/21/24 05:02 Vitamin B12 1707 pg/mL (193-986) H 09/19/24 05:18 Folate 6.3 ng/mL (>8.6) L 09/19/24 05:18 Specimen Type Clean catch urine 09/13/24 19:29 Urine Color Yellow (YELLOW) 09/13/24 19:29 Urine Appearance Hazy (CLEAR) 09/13/24 19:29 Urine pH 6.0 (5.0 - 8.0) 09/13/24 19:29 Ur Specific [place] 1.020 (1.000-1.030) 09/13/24 19:29 Urine Protein 3+ (NEGATIVE) 09/13/24 19:29 Urine Glucose (UA) Negative (NEGATIVE) 09/13/24 19: Urine Ketones Negative (NEGATIVE) 09/13/24 19: Urine Blood 5+ (NEGATIVE) 09/13/24 19: Urine Nitrite Negative (NEGATIVE) 09/13/24 19: Urine Bilirubin Negative (NEGATIVE) 09/13/24 19: Urine Urobilinogen 2+ (NORMAL) 09/13/24 19: Ur Leukocyte Esterase Negative (NEGATIVE) 09/13/24 19: Urine RBC 0-2 /HPF (0-3) 09/13/24 19: Urine WBC 0-2 /HPF (0-5) 09/13/24 19: Ur Squamous Epith Cells Rare /HPF (NEGATIVE) 09/13/24 19: Amorphous Sediment 1+ /HPF (NEGATIVE) 09/13/24 19: Urine Bacteria Trace /HPF (NEGATIVE) 09/13/24 19: Granular Casts Moderate /LPF (NEGATIVE) 09/13/24 19: Ur Culture Indicated? No/not indicated 09/13/24 19:29 SARS-CoV-2 (PCR) Negative (NEGATIVE) 09/13/24 14:56 Influenza Type A (PCR) Negative (NEGATIVE) 09/13/24 14:56 Influenza Type B (PCR) Negative (NEGATIVE) 09/13/24 14:56 RSV (PCR) Negative (NEGATIVE) 09/13/24 14:56 Resp Viral Panel (PCR) See scanned report 09/13/24 20:10 Blood Type O POSITIVE 09/19/24 09:40 Antibody Screen Negative 09/19/24 09:40 Crossmatch See Detail 09/19/24 09:40 Radiology Reviewed: Yes Plan (1) Right lower lobe pneumonia: Status: Acute Qualifiers: Pneumonia type: due to unspecified organism Qualified Code(s): J18.9 - Pneumonia, unspecified organism Plan: I plan to continue BiPAP therapy until lunchtime, then remove it to allow the patient to eat. We'll restart BiPAP after lunch. I'm prescribing Valium (diazepam) as needed, starting with the lowest dose, every 6-8 hours, preferably trying for 8 hours between doses. This should help with anxiety and BiPAP tolerance. We'll start with 5 mg IV and can increase to 10 mg if needed. I'm ordering daily chest x-rays and ABGs at 5 AM. We'll adjust blood pressure medication, adding Losartan 25 mg daily. The patient is clinically improving over time. Dr. Robert Braun will be the covering physician over the weekend, and I will see the patient again this coming Tuesday, 24 September 2024. (2) Atrial fibrillation with RVR: Status: Resolved Narrative Support Text: Stable. Plan: Continue Eliquis at this time. (3) Dehydration: Status: Resolved Plan: Continue IV normal saline hydration at this time. (4) Hyponatremia: Status: Resolved Plan: Continue hydration therapy with normal saline IV fluid. (5) Essential hypertension: Status: Acute Plan: Continue: Cardizem 240 mg p.o. daily Restart the patient on losartan 25 mg 1 p.o. daily since he has had an increase in his blood pressure now and is currently on control. (6) Thrombocytopenia: Status: Acute Plan: Follow daily CBCs to monitor for platelet count improvement. (7) Elevated LFTs: Status: Acute Plan: Monitor for continued improvement. (8) Hypoalbuminemia: Status: Acute Plan: 25% albumin 100 mL IV daily. Encourage the patient to eat more. Megace 40 mg p.o. twice daily was started to help get the patient's protein and albumin levels increased. (9) Elevated brain natriuretic peptide (BNP) level: Status: Acute Plan: Repeat BMP again tomorrow as well as chest x-ray. We will diurese if needed. (10) Glaucoma: Status: Acute Plan: Continue dorzolamidetimolol ophthalmic drops. (11) Hyperglycemia: Status: Acute Plan: Check hemoglobin A1c for tomorrow morning. (12) History of malignant neoplasm of prostate: Status: Acute (13) Hx of prostatectomy: Status: Acute (14) Hyperbilirubinemia: Status: Acute (15) Chronic idiopathic thrombocytopenia: Status: Acute
[2024-09-22 05:15] LABS: BASOPHILS % (AUTO) 0.1 % (0.2-1.0); HEMATOCRIT 24.1 % (42.0-54.0); HEMOGLOBIN 8.5 g/dL (13.5-18.0); LYMPHOCYTES # (AUTO) 0.6 X10^3/uL (1.3-2.9); LYMPHOCYTES % (AUTO) 9.9 % (21.0-51.0); MEAN CORPUSCULAR HEMOGLOBIN 35.7 pg (27.0-34.0); MEAN CORPUSCULAR HGB CONC 35.2 g/dL (33.0-35.0); MEAN CORPUSCULAR VOLUME 101.4 fL (80.0-100.0); MEAN PLATELET VOLUME 7.9 fL (7.4-11.0); MONOCYTES # (AUTO) 0.1 x10^3/uL (0.3-0.8); MONOCYTES % (AUTO) 2.3 % (0.0-13.0); NEUTROPHILS # (AUTO) 5.2 x10^3/uL (2.2-4.8); NEUTROPHILS % (AUTO) 87.7 % (42.0-75.0); PLATELET COUNT 33 X10^3/uL (150.0-450.0); RED BLOOD COUNT 2.38 X10^6/uL (4.7-6.0); RED CELL DISTRIBUTION WIDTH 15.3 % (11.6-16.5); WHITE BLOOD COUNT 5.9 X10^3/uL (3.6-10.0)
[2024-09-22 05:51] LABS: ABG ALLEN TEST POS; ABG BASE EXCESS -0.4 mmol/L (-2.0-2.0); ABG HCO3 22.3 mmol/L (22-26)
[2024-09-22 05:56] LABS: ALANINE AMINOTRANSFERASE 48 Units/L (12-78); ALBUMIN 2.3 g/dL (3.4-5.0); ALKALINE PHOSPHATASE 67 Units/L (46-116); ASPARTATE AMINO TRANSFERASE 31 Units/L (15-37); BLOOD UREA NITROGEN 26 mg/dL (7-18); CALCIUM 8.3 mg/dL (8.5-10.1); CARBON DIOXIDE 23.9 mmol/L (21-32); CHLORIDE 111 mmol/L (98-107); COR CA(FOR HYPOALB) 9.7 mg/dL (8.5-10.1); COR NA(FOR HYPERGLY) 145 mmol/L (136-145); CREATININE 0.97 mg/dL (0.70-1.30); GLUCOSE 151 mg/dL (65-99); MAGNESIUM 2.4 mg/dL (2.0-2.9); POTASSIUM 4.2 mmol/L (3.5-5.1); SODIUM 144 mmol/L (136-145); TOTAL PROTEIN 5.2 g/dL (6.4-8.2); eGFR NON BLACK RACES > 60 (>60)
--- NOTE | 2024-09-22 06:53 | RAD ---
EXAM:AP chestHISTORY:Follow-up pneumoniaCOMPARISON:09/19/2024FINDINGS:R e-demonstration of diffuse airspace consolidation within the right lung. Heart size remains normal. No developing involvement of the left lung is observed. There is little change in appearance of the pneumonia except for slight apparent progression in the right upper lobe.IMPRESSION:Persistent right-sided pneumonia with slight apparent interval increase in the right upper lobe since 2 days prior.THIS IS AN ELECTRONICALLY VERIFIED FINAL [id number]/22/2024 6:50 AM - Electronically signed by Babar Robertson MD
--- NOTE | 2024-09-22 07:20 | RAD ---
EXAM:CHEST, 1 VIEWHISTORY:pneumonia;COMPARISON: 024FINDINGS:The trachea is midline. The cardiac silhouette is unremarkable. Diffuse airspace opacity throughout the right hemithorax is observed consistent with multifocal pneumonia.. The bony thorax is unremarkable.IMPRESSION:Multifocal pneumonia throughout the right hemithorax without focal consolidation of the left hemithorax identified.THIS IS AN ELECTRONICALLY VERIFIED FINAL [id number]/22/2024 7:16 AM - Electronically signed by Reji Payne MD
[2024-09-22] MEDS: NS 250 ML IV 25 ML IV PRN (09:34)
[2024-09-22] MEDS: MICARDIS PO SCH (10:45)
[2024-09-22] MEDS: MVI INJ (ADULT) IV SCH (10:45)
[2024-09-22] MEDS: PREDNISONE TAB 20 MG PO SCH (10:45)
[2024-09-22] MEDS: COLACE CAP 100 MG PO PRN (17:29)
[2024-09-22] MEDS: MILK OF MAGNESIA PO PRN (17:30)
[2024-09-23 05:15] LABS: ABG ALLEN TEST POS; ABG BASE EXCESS 0.9 mmol/L (-2.0-2.0); ABG HCO3 23.4 mmol/L (22-26)
[2024-09-23 05:39] LABS: BASOPHILS # (AUTO) 0.1 X10^3/uL (0.0-0.1); BASOPHILS % (AUTO) 1.3 % (0.2-1.0); EOSINOPHILS % (AUTO) 0.1 % (0.9-2.9); HEMATOCRIT 25.5 % (42.0-54.0); HEMOGLOBIN 8.8 g/dL (13.5-18.0); LYMPHOCYTES # (AUTO) 0.6 X10^3/uL (1.3-2.9); LYMPHOCYTES % (AUTO) 8.9 % (21.0-51.0); MEAN CORPUSCULAR HEMOGLOBIN 35.3 pg (27.0-34.0); MEAN CORPUSCULAR HGB CONC 34.6 g/dL (33.0-35.0); MEAN CORPUSCULAR VOLUME 101.9 fL (80.0-100.0); MEAN PLATELET VOLUME 8.9 fL (7.4-11.0); MONOCYTES # (AUTO) 0.2 x10^3/uL (0.3-0.8); MONOCYTES % (AUTO) 3.3 % (0.0-13.0); NEUTROPHILS # (AUTO) 6.3 x10^3/uL (2.2-4.8); NEUTROPHILS % (AUTO) 86.4 % (42.0-75.0); PLATELET COUNT 36 X10^3/uL (150.0-450.0); RED BLOOD COUNT 2.51 X10^6/uL (4.7-6.0); RED CELL DISTRIBUTION WIDTH 15.3 % (11.6-16.5); WHITE BLOOD COUNT 7.3 X10^3/uL (3.6-10.0)
[2024-09-23 06:09] LABS: ALANINE AMINOTRANSFERASE 85 Units/L (12-78); ALBUMIN 2.6 g/dL (3.4-5.0); ALKALINE PHOSPHATASE 77 Units/L (46-116); ASPARTATE AMINO TRANSFERASE 49 Units/L (15-37); BLOOD UREA NITROGEN 29 mg/dL (7-18); CALCIUM 8.6 mg/dL (8.5-10.1); CARBON DIOXIDE 25.7 mmol/L (21-32); CHLORIDE 111 mmol/L (98-107); COR CA(FOR HYPOALB) 9.7 mg/dL (8.5-10.1); COR NA(FOR HYPERGLY) 145 mmol/L (136-145); CREATININE 1.01 mg/dL (0.70-1.30); GLUCOSE 133 mg/dL (65-99); POTASSIUM 4.4 mmol/L (3.5-5.1); SODIUM 144 mmol/L (136-145); TOTAL PROTEIN 5.5 g/dL (6.4-8.2); eGFR NON BLACK RACES > 60 (>60)
[2024-09-23] MEDS: CARDIZEM CD 360 MG 24-HR PO SCH (09:07)
--- NOTE | 2024-09-23 11:57 | RAD ---
EXAM:AP chestHISTORY:PneumoniaCOMPARISON: 024FINDINGS:There is similar diffuse airspace consolidation of the right lung with little if any change. Interval development of peripheral airspace involvement in the left mid lung without evidence for extrapulmonary air complication or pleural effusion.IMPRESSION:Stable right-sided pneumonia with interval development of similar process in the left mid lung since 1 day prior.THIS IS AN ELECTRONICALLY VERIFIED FINAL [id number]/23/2024 11:54 AM - Electronically signed by Babar Robertson MD
[2024-09-23] MEDS: DULCOLAX SUPPOSITORY 10 MG RECTAL ONE (13:42)
[2024-09-23] MEDS: ULTRAM PO PRN (16:02)
[2024-09-24 06:14] LABS: ALANINE AMINOTRANSFERASE 54 Units/L (12-78); ALBUMIN 2.7 g/dL (3.4-5.0); ALKALINE PHOSPHATASE 73 Units/L (46-116); ASPARTATE AMINO TRANSFERASE 23 Units/L (15-37); BLOOD UREA NITROGEN 25 mg/dL (7-18); CALCIUM 8.3 mg/dL (8.5-10.1); CARBON DIOXIDE 23.2 mmol/L (21-32); CHLORIDE 110 mmol/L (98-107); COR CA(FOR HYPOALB) 9.3 mg/dL (8.5-10.1); CREATININE 0.92 mg/dL (0.70-1.30); GLUCOSE 94 mg/dL (65-99); POTASSIUM 4.1 mmol/L (3.5-5.1); SODIUM 143 mmol/L (136-145); TOTAL PROTEIN 5.5 g/dL (6.4-8.2); eGFR NON BLACK RACES > 60 (>60)
[2024-09-24 06:26] LABS: BASOPHILS % (AUTO) 0.1 % (0.2-1.0); EOSINOPHILS % (AUTO) 0.3 % (0.9-2.9); HEMATOCRIT 25.6 % (42.0-54.0); HEMOGLOBIN 8.8 g/dL (13.5-18.0); LYMPHOCYTES # (AUTO) 1.2 X10^3/uL (1.3-2.9); LYMPHOCYTES % (AUTO) 15.1 % (21.0-51.0); MEAN CORPUSCULAR HEMOGLOBIN 34.9 pg (27.0-34.0); MEAN CORPUSCULAR HGB CONC 34.3 g/dL (33.0-35.0); MEAN CORPUSCULAR VOLUME 101.8 fL (80.0-100.0); MONOCYTES # (AUTO) 0.2 x10^3/uL (0.3-0.8); MONOCYTES % (AUTO) 2.5 % (0.0-13.0); NEUTROPHILS # (AUTO) 6.7 x10^3/uL (2.2-4.8); PLATELET COUNT 33 X10^3/uL (150.0-450.0); RED BLOOD COUNT 2.51 X10^6/uL (4.7-6.0); RED CELL DISTRIBUTION WIDTH 15.3 % (11.6-16.5); WHITE BLOOD COUNT 8.2 X10^3/uL (3.6-10.0)
[2024-09-24 06:40] LABS: ABG ALLEN TEST POS; ABG BASE EXCESS -0.4 mmol/L (-2.0-2.0); ABG HCO3 21.5 mmol/L (22-26)
[2024-09-24] MEDS: NORCO 5/325 MG TAB PO PRN (09:31)
[2024-09-24] MEDS: DIFLUCAN 200 MG IV PREMIX* 200 MG/100 ML BAG IV SCH (15:27)
--- NOTE | 2024-09-24 15:32 | PCM.PROG ---
Progress Note Progress Note for Day of Date of Exam: 09/24/24 Subjective Subjective: This morning, the patient reported that he was feeling okay. He had a good weekend, he states, and I see that they have taken him off the BiPAP and heated high flow and currently have him on a nasal cannula. Chest x-ray from 09-22-2024 showed multifocal pneumonia throughout the right hemothorax without focal consolidation of the left hemothorax. Current FiO2 is 32% from the 3-liter nasal cannula, indicating improvement. The patient's appetite is poor; he didn't eat this morning. Auscultation revealed abnormalities in the right anterior bronchi. The patient is not coughing up much phlegm yet. Oxygen levels have improved, allowing the transition back to the nasal cannula. Some swelling was observed in the feet and ankles. Hemoglobin is 8.8. The platelet count is low at 33,000. The albumin level is 2.7, showing some improvement. product safety engineer reported improved coughing efforts. The patient denies incontinence issues since prostate surgery. The patient continues to improve clinically overall. Past Medical Family Social History Past Med/Fam/Surg Hx: No changes since H&P Allergies: Allergies No Known Allergies Allergy (Verified 09/13/24 14:44) Review of Systems ROS: No change since H&P Vital Signs and I&O's Vital Signs: Vital Signs Temperature 97.5 F Pulse Rate 88 Pulse Rate 81 Pulse Rate 63 Pulse Rate 67 Pulse Rate 66 Pulse Rate 74 Pulse Rate 72 Pulse Rate 92 Pulse Rate 91 Pulse Rate 73 Respiratory Rate 24 Respiratory Rate 20 Respiratory Rate 14 Respiratory Rate 14 Respiratory Rate 14 Respiratory Rate 9 Respiratory Rate 16 Respiratory Rate 14 Respiratory Rate 24 Respiratory Rate 28 Respiratory Rate 16 Blood Pressure 151/84 Blood Pressure 147/70 Blood Pressure 158/75 Blood Pressure 162/72 Blood Pressure 167/81 Blood Pressure 166/80 O2 Sat by Pulse Oximetry 100 O2 Sat by Pulse Oximetry 99 O2 Sat by Pulse Oximetry 98 O2 Sat by Pulse Oximetry 98 O2 Sat by Pulse Oximetry 98 O2 Sat by Pulse Oximetry 98 O2 Sat by Pulse Oximetry 97 O2 Sat by Pulse Oximetry 96 O2 Sat by Pulse Oximetry 96 O2 Sat by Pulse Oximetry 96 Intake and Output: Intake & Output 09/22/24 09/23/24 09/24/24 09/25/24 11:59 11:59 11:59 11:59 Intake Total 2704 / 2704 2714 / 2714 2577 / 2577 Output Total 3250 / 3250 1900 / 1900 2600 / 2600 Balance -546 / -546 814 / 814 -23 / -23 Physical Exam Oriented: Normal, Time, Person and Place Eyes: Normal Nose: Normal Respiratory: Generalized, Diminished and Rhonchi Cardiovascular: Normal Auscultation: Bowel Sounds: Normal Tenderness: Normal Skin: Decreased Turgur Musculoskeletal: Normal Psychiatric: Normal Mood Description: Calm Affect: Normal Speech Pattern: Appropriate and Unclear Laboratory and Diagnostics 09/24/24 05:29 09/24/24 05:29 Labs: 09/14/24 21:40 Blood Blood Culture - Final 09/14/24 21:30 Blood Blood Culture - Final 09/18/24 09:27 Sputum - Expectorated Sputum Sputum Culture - Preliminary 09/18/24 09:27 Sputum - Expectorated Sputum - Final 09/13/24 17:17 Blood Blood Culture - Final 09/13/24 17:08 Blood Blood Culture - Final Laboratory WBC 8.2 X10^3/uL (3.6-10.0) 09/24/24 05:29 RBC 2.51 X10^6/uL (4.7-6.0) L 09/24/24 05:29 Hgb 8.8 g/dL (13.5-18.0) L 09/24/24 05:29 Hct 25.6 % (42.0-54.0) L 09/24/24 05:29 MCV 101.8 fL (80.0-100.0) H 09/24/24 05:29 MCH 34.9 pg (27.0-34.0) H 09/24/24 05:29 MCHC 34.3 g/dL (33.0-35.0) 09/24/24 05:29 RDW 15.3 % (11.6-16.5) 09/24/24 05:29 Plt Count 33 X10^3/uL (150.0-450.0) L 09/24/24 05:29 Plt Count Comment Decreased (ADEQUATE) 09/21/24 05:02 MPV 9.0 fL (7.4-11.0) 09/24/24 05:29 Neut % (Auto) 82.0 % (42.0-75.0) H 09/24/24 05:29 Lymph % (Auto) 15.1 % (21.0-51.0) L 09/24/24 05:29 [place] % (Auto) 2.5 % (0.0-13.0) 09/24/24 05:29 Eos % (Auto) 0.3 % (0.9-2.9) L 09/24/24 05:29 Baso % (Auto) 0.1 % (0.2-1.0) L 09/24/24 05:29 Neut # (Auto) 6.7 x10^3/uL (2.2-4.8) H 09/24/24 05:29 Lymph # (Auto) 1.2 X10^3/uL (1.3-2.9) L 09/24/24 05:29 [place] # (Auto) 0.2 x10^3/uL (0.3-0.8) L 09/24/24 05:29 Eos # (Auto) 0.0 x10^3/uL (0.0-0.2) 09/24/24 05:29 Baso # (Auto) 0.0 X10^3/uL (0.0-0.1) 09/24/24 05:29 Absolute Nucleated RBC 0.3 /100WBC 09/24/24 05:29 Total Counted 100 09/21/24 05:02 Neutrophils % (Manual) 94 % (39-76) H 09/21/24 05:02 Band Neutrophils % 4 % (0-10) 09/15/24 04:50 Lymphocytes % (Manual) 5 % (13-43) L 09/21/24 05:02 Monocytes % (Manual) 1 % (4-9) L 09/21/24 05:02 Eosinophils % (Manual) 0 % (0-6) 09/21/24 05:02 Basophils % (Manual) 0 % (0-1) 09/21/24 05:02 Plt Morphology Comment Normal (NORMAL) 09/21/24 05:02 RBC Morphology Abnormal (NORMAL) 09/21/24 05:02 Macrocytosis Slight A 09/21/24 05:02 Target Cells Slight A 09/21/24 05:02 Schistocytes Slight A 09/21/24 05:02 Sample Site R rad 09/24/24 06:34 ABG pH 7.510 (7.35-7.45) H 09/24/24 06:34 ABG pCO2 27.0 mmHg (35.0-45.0) L 09/24/24 06:34 ABG pO2 90.0 mmHg (80.0-100.0) 09/24/24 06:34 ABG HCO3 21.5 mmol/L (22-26) L 09/24/24 06:34 ABG O2 Saturation 98.0 % (90-100) 09/24/24 06:34 ABG Base Excess -0.4 mmol/L (-2.0-2.0) 09/24/24 06:34 Ziyad Test Pos 09/24/24 06:34 A-a Gradient 104.0 mmHg 09/24/24 06:34 FiO2 32.0 09/24/24 06:34 Blood Gas Comments Pt shivani well. pickling drum operator 09/24/24 06:34 Sodium 143 mmol/L (136-145) 09/24/24 05:29 Corrected Sodium TNP 09/24/24 05:29 Potassium 4.1 mmol/L (3.5-5.1) 09/24/24 05:29 Chloride 110 mmol/L (98-107) H 09/24/24 05:29 Carbon Dioxide 23.2 mmol/L (21-32) 09/24/24 05:29 BUN 25 mg/dL (7-18) H 09/24/24 05:29 Creatinine 0.92 mg/dL (0.70-1.30) 09/24/24 05:29 Est GFR (MDRD) Af Amer > 60 (>60) 09/24/24 05:29 Est GFR (MDRD) Non-Af > 60 (>60) 09/24/24 05:29 Glucose 94 mg/dL (65-99) 09/24/24 05:29 Hemoglobin A1c 6.9 % 09/15/24 04:50 Lactic Acid 2.0 mmol/L (0.4-2.0) 09/13/24 20:58 Calcium 8.3 mg/dL (8.5-10.1) L 09/24/24 05:29 Corrected Calcium 9.3 mg/dL (8.5-10.1) 09/24/24 05:29 Phosphorus 3.4 mg/dL (2.6-4.7) 09/19/24 05:18 Magnesium 2.4 mg/dL (2.0-2.9) 09/22/24 04:45 Iron 62 ug/dL (50-175) 09/19/24 05:18 TIBC 107 ug/dL (250-450) L 09/19/24 05:18 Transferrin 71 mg/dL (202-364) L 09/19/24 05:18 Ferritin 4685 ng/mL (26-388) H 09/19/24 05:18 Total Bilirubin 1.30 mg/dL (0.2-1.0) H 09/24/24 05:29 Direct Bilirubin 0.30 mg/dL (0-0.2) H 09/19/24 05:18 AST 23 Units/L (15-37) 09/24/24 05:29 ALT 54 Units/L (12-78) 09/24/24 05:29 Alkaline Phosphatase 73 Units/L (46-116) 09/24/24 05:29 C-Reactive Protein 18.10 mg/L (0-3.0) H 09/22/24 04:45 B-Natriuretic Peptide 135 pg/mL (0-79) H 09/17/24 04:50 Total Protein 5.5 g/dL (6.4-8.2) L 09/24/24 05:29 Albumin 2.7 g/dL (3.4-5.0) L 09/24/24 05:29 Globulin 2.8 g/dL (2.5-4.5) 09/24/24 05:29 Albumin/Globulin Ratio 1.0 Ratio (1.1-2.1) L 09/24/24 05:29 Vitamin B12 1707 pg/mL (193-986) H 09/19/24 05:18 Folate 6.3 ng/mL (>8.6) L 09/19/24 05:18 Specimen Type Clean catch urine 09/13/24 19:29 Urine Color Yellow (YELLOW) 09/13/24 19:29 Urine Appearance Hazy (CLEAR) 09/13/24 19:29 Urine pH 6.0 (5.0 - 8.0) 09/13/24 19:29 Ur Specific [place] 1.020 (1.000-1.030) 09/13/24 19:29 Urine Protein 3+ (NEGATIVE) 09/13/24 19:29 Urine Glucose (UA) Negative (NEGATIVE) 09/13/24 19: Urine Ketones Negative (NEGATIVE) 09/13/24 19: Urine Blood 5+ (NEGATIVE) 09/13/24 19: Urine Nitrite Negative (NEGATIVE) 09/13/24 19: Urine Bilirubin Negative (NEGATIVE) 09/13/24 19: Urine Urobilinogen 2+ (NORMAL) 09/13/24 19: Ur Leukocyte Esterase Negative (NEGATIVE) 09/13/24 19: Urine RBC 0-2 /HPF (0-3) 09/13/24 19: Urine WBC 0-2 /HPF (0-5) 09/13/24 19: Ur Squamous Epith Cells Rare /HPF (NEGATIVE) 09/13/24 19: Amorphous Sediment 1+ /HPF (NEGATIVE) 09/13/24 19: Urine Bacteria Trace /HPF (NEGATIVE) 09/13/24 19: Granular Casts Moderate /LPF (NEGATIVE) 09/13/24 19:29 Ur Culture Indicated? No/not indicated 09/13/24 19:29 Stl Occult Blood (IFOB) Negative (NEGATIVE) 09/23/24 14:54 SARS-CoV-2 (PCR) Negative (NEGATIVE) 09/13/24 14:56 Influenza Type A (PCR) Negative (NEGATIVE) 09/13/24 14:56 Influenza Type B (PCR) Negative (NEGATIVE) 09/13/24 14:56 RSV (PCR) Negative (NEGATIVE) 09/13/24 14:56 Resp Viral Panel (PCR) See scanned report 09/13/24 20:10 Blood Type O POSITIVE 09/19/24 09:40 Antibody Screen Negative 09/19/24 09:40 Crossmatch See Detail 09/19/24 09:40 Radiology Reviewed: Yes Plan (1) Right lower lobe pneumonia: Status: Acute Qualifiers: Pneumonia type: due to unspecified organism Qualified Code(s): J18.9 - Pneumonia, unspecified organism Narrative Support Text: Clinically improving Plan: 1. We will work on lowering Mr. Zamudio's blood pressure today by adding metoprolol ER 25 mg 1 p.o. daily. 2. I recommended that he try to eat breakfast to keep his protein levels up, which will help with the swelling and maintain his strength. 3. 3. I suggested eating smaller portions if necessary. 4. Continue the patient on his current treatment of jet nebs, IV cefepime and azithromycin for his pneumonia. Clinically, it is improving still over time. 5. Repeat chest x-ray tomorrow morning. We will continue to wean the patient down on his FiO2 concentration as tolerated per patient. (2) Atrial fibrillation with RVR: Status: Resolved Plan: Continue Eliquis at this time. (3) Dehydration: Status: Resolved Plan: Continue IV normal saline hydration at this time. (4) Hyponatremia: Status: Resolved Plan: Continue hydration therapy with normal saline IV fluid. (5) Essential hypertension: Status: Acute Plan: Continue: 1. Cardizem 240 mg 1 p.o. daily 2. Telmisartan 80 mg 1 p.o. daily 3. Start metoprolol ER 25 mg mg 1 p.o. twice daily (6) Thrombocytopenia: Status: Acute Plan: Follow daily CBCs to monitor for platelet count improvement. (7) Elevated LFTs: Status: Acute Plan: Monitor for continued improvement. (8) Hypoalbuminemia: Status: Acute Plan: 25% albumin 100 mL IV daily. Encourage the patient to eat more. Megace 40 mg p.o. twice daily was started to help get the patient's protein and albumin levels increased. (9) Elevated brain natriuretic peptide (BNP) level: Status: Acute Plan: Repeat BMP again tomorrow as well as chest x-ray. We will diurese if needed. (10) Glaucoma: Status: Acute Plan: Continue dorzolamidetimolol ophthalmic drops. (11) Hyperglycemia: Status: Acute Plan: Check hemoglobin A1c for tomorrow morning. (12) History of malignant neoplasm of prostate: Status: Acute (13) Hx of prostatectomy: Status: Acute (14) Hyperbilirubinemia: Status: Acute (15) Chronic idiopathic thrombocytopenia: Status: Acute Plan: 1. The plan includes continuing antibiotic therapy with cefepime and azithromycin for ongoing treatment of pneumonia. 2. Mucinex will be added to help thin mucus and facilitate coughing. 3. Add Mucomyst to patient's nebulizer treatments. 4. Chest physiotherapy will continue to assist with mobilizing secretions. 5. A hematological workup is needed to explore causes for an ongoing drop in platelets and rising bilirubin levels, including Flora tests for potential hemolysis. 6. Folic acid supplementation (1 mg PO daily will be initiated due to low folate levels. 7. Repeat chest x-ray is indicated to monitor lung status.
[2024-09-24] MEDS: TOPROL XL PO SCH (16:03)
[2024-09-24] MEDS: LOTEPREDNOL ETABONATE 0.5% OP SCH (20:17)
[2024-09-24] MEDS: PATIENT'S HOME MEDICATION PO SCH (20:23)
[2024-09-25 05:56] LABS: ABG ALLEN TEST POS; ABG HCO3 21.8 mmol/L (22-26)
[2024-09-25 06:27] LABS: BASOPHILS % (AUTO) 0.4 % (0.2-1.0); EOSINOPHILS % (AUTO) 0.5 % (0.9-2.9); HEMATOCRIT 25.6 % (42.0-54.0); HEMOGLOBIN 8.9 g/dL (13.5-18.0); LYMPHOCYTES # (AUTO) 1.1 X10^3/uL (1.3-2.9); LYMPHOCYTES % (AUTO) 12.5 % (21.0-51.0); MEAN CORPUSCULAR HEMOGLOBIN 35.8 pg (27.0-34.0); MEAN CORPUSCULAR HGB CONC 34.8 g/dL (33.0-35.0); MEAN PLATELET VOLUME 9.3 fL (7.4-11.0); MONOCYTES # (AUTO) 0.2 x10^3/uL (0.3-0.8); MONOCYTES % (AUTO) 2.3 % (0.0-13.0); NEUTROPHILS # (AUTO) 7.6 x10^3/uL (2.2-4.8); NEUTROPHILS % (AUTO) 84.3 % (42.0-75.0); PLATELET COUNT 35 X10^3/uL (150.0-450.0); RED BLOOD COUNT 2.48 X10^6/uL (4.7-6.0); RED CELL DISTRIBUTION WIDTH 15.1 % (11.6-16.5)
[2024-09-25 06:55] LABS: ALANINE AMINOTRANSFERASE 44 Units/L (12-78); ALBUMIN 2.8 g/dL (3.4-5.0); ALKALINE PHOSPHATASE 77 Units/L (46-116); ASPARTATE AMINO TRANSFERASE 30 Units/L (15-37); BLOOD UREA NITROGEN 22 mg/dL (7-18); CALCIUM 8.1 mg/dL (8.5-10.1); CARBON DIOXIDE 22.8 mmol/L (21-32); CHLORIDE 111 mmol/L (98-107); COR CA(FOR HYPOALB) 9.1 mg/dL (8.5-10.1); CREATININE 0.99 mg/dL (0.70-1.30); GLUCOSE 96 mg/dL (65-99); SODIUM 142 mmol/L (136-145); TOTAL PROTEIN 5.7 g/dL (6.4-8.2); eGFR NON BLACK RACES > 60 (>60)
--- NOTE | 2024-09-25 07:16 | RAD ---
EXAM: CHEST, 1 VIEW HISTORY: pneumonia; COMPARISON: Prior study or studies were utilized for comparison during interpretation with the most relevant yuridia ed 09/23/2024 TECHNIQUE: CHEST, 1 VIEW FINDINGS: Chest: Lines and tubes: Cardiac leads overlie the chest. Mediastinum: Cardiac and mediastinal shadow is within normal limits for size and contour. Pulmonary vessels: No pulmonary vascular congestion. Lung banda: Bilateral airspace consolidations are seen, [id number]-left Pleura: No effusion. No pneumothorax. Bones and soft tissues: No acute osseous or soft tissue abnormality. IMPRESSION: 1. Bilateral pneumonia, [id number]-left THIS IS AN ELECTRONICALLY VERIFIED FINAL REPORT 09/25/2024 7:13 AM - Electronically signed by Drew Cosby MD
[2024-09-25] MEDS ORDERED: PREDNISONE TAB 5 MG PO SCH (09:00)
[2024-09-25] MEDS: CARDIZEM CD 240 MG 24-HR PO SCH (09:17)
[2024-09-25] MEDS: TOPROL XL PO SCH (09:18)
[2024-09-25] MEDS: PREDNISONE TAB 10 MG PO SCH (09:20)
[2024-09-25] MEDS ORDERED: CONSULT PHARMACY - GENTAMICIN XX SCH (11:00)
[2024-09-25] MEDS: GENTAMICIN INJ 480 MG in NS 100 ML IV 100 ML IV SCH (11:07)
[2024-09-25 15:31] VITALS: BMI 21.2
[2024-09-26 05:24] LABS: BASOPHILS % (AUTO) 0.1 % (0.2-1.0); EOSINOPHILS # (AUTO) 0.1 x10^3/uL (0.0-0.2); EOSINOPHILS % (AUTO) 0.6 % (0.9-2.9); HEMATOCRIT 25.6 % (42.0-54.0); HEMOGLOBIN 8.9 g/dL (13.5-18.0); LYMPHOCYTES # (AUTO) 1.1 X10^3/uL (1.3-2.9); LYMPHOCYTES % (AUTO) 11.8 % (21.0-51.0); MEAN CORPUSCULAR HEMOGLOBIN 35.5 pg (27.0-34.0); MEAN CORPUSCULAR HGB CONC 34.8 g/dL (33.0-35.0); MEAN PLATELET VOLUME 8.6 fL (7.4-11.0); MONOCYTES # (AUTO) 0.2 x10^3/uL (0.3-0.8); MONOCYTES % (AUTO) 2.7 % (0.0-13.0); NEUTROPHILS # (AUTO) 7.7 x10^3/uL (2.2-4.8); NEUTROPHILS % (AUTO) 84.8 % (42.0-75.0); PLATELET COUNT 24 X10^3/uL (150.0-450.0); RED BLOOD COUNT 2.51 X10^6/uL (4.7-6.0); WHITE BLOOD COUNT 9.1 X10^3/uL (3.6-10.0)
[2024-09-26 05:34] LABS: ALANINE AMINOTRANSFERASE 45 Units/L (12-78); ALBUMIN 3.1 g/dL (3.4-5.0); ALKALINE PHOSPHATASE 81 Units/L (46-116); ASPARTATE AMINO TRANSFERASE 28 Units/L (15-37); BLOOD UREA NITROGEN 22 mg/dL (7-18); CALCIUM 8.8 mg/dL (8.5-10.1); CHLORIDE 107 mmol/L (98-107); COR CA(FOR HYPOALB) 9.5 mg/dL (8.5-10.1); CREATININE 1.07 mg/dL (0.70-1.30); GLUCOSE 104 mg/dL (65-99); POTASSIUM 3.8 mmol/L (3.5-5.1); SODIUM 142 mmol/L (136-145); eGFR NON BLACK RACES > 60 (>60)
[2024-09-26] MEDS ORDERED: CONSULT PHARMACY - POTASSIUM & MAGNESIUM XX SCH (08:00)
--- NOTE | 2024-09-26 09:04 | RAD ---
EXAM: CHEST, 1 VIEW HISTORY: PNEUMONIA ; GERD, HTN, RENAL DISEASE SX: PROSTATECTOMY COMPARISON: 09/24/2024 FINDINGS: Abnormal opacity in the upper lobes is consistent with pneumonia. Probably not changed significantly from yesterday. Small right effusion unchanged. Heart size is normal. The bones are unremarkable. EKG leads are noted. IMPRESSION: 1. Unchanged pneumonia THIS IS AN ELECTRONICALLY VERIFIED FINAL REPORT 09/26/2024 9:01 AM - Electronically signed by Jer St MD
--- NOTE | 2024-09-26 09:49 | RAD ---
EXAM:CHEST, 1 VIEW, 9:09 a.m.HISTORY:PNEUMONIA;COMPARISON: 024, 4:29 a.m.FINDINGS:Bilateral pneumonia is unchanged. There may be a small right effusion unchanged.Heart size is normal.The bones are unremarkable.EKG leads are noted.IMPRESSION:1. Unchanged pneumoniaTHIS IS AN ELECTRONICALLY VERIFIED FINAL [id number]/26/2024 9:46 AM - Electronically signed by Jer St MD
[2024-09-26] MEDS: K-DUR TAB 20 MEQ PO SCH (10:16)
--- NOTE | 2024-09-26 12:54 | PCM.PROG ---
Progress Note Progress Note for Day of Date of Exam: 09/25/24 Subjective Subjective: The patient told me that he is feeling better again this morning and that he is still making some progress overall. The patient's appetite is still not good; the patient only took one bite of pancake and a little sausage. Breathing is labored, with the patient reporting difficulty getting comfortable when stretched out. The patient sat up in a chair for 3-4 hours but felt tired afterward. Using an incentive spirometer with good effort, raising the indicator about [facility]. Blood pressure remains elevated. Chest x-ray from yesterday shows pneumonia in left and right lung. The patient is currently on O2 via nasal cannula 3 L, which is an improvement from the previous day. Patient is drinking fluids orally. Patient appears to be a tall individual with large lung volumes. He is still currently receiving IV cefepime and azithromycin. This morning's chest x-ray is still pending. Past Medical Family Social History Past Med/Fam/Surg Hx: No changes since H&P Allergies: Allergies No Known Allergies Allergy (Verified 09/13/24 14:44) Review of Systems ROS: No change since H&P Vital Signs and I&O's Vital Signs: Vital Signs Temperature 98.4 F Temperature 98.1 F Pulse Rate 89 Pulse Rate 89 Pulse Rate 70 Pulse Rate 64 Pulse Rate 67 Pulse Rate 69 Pulse Rate 63 Pulse Rate 69 Respiratory Rate 19 Respiratory Rate 13 Respiratory Rate 13 Respiratory Rate 20 Respiratory Rate 18 Respiratory Rate 12 Respiratory Rate 15 Blood Pressure 164/79 Blood Pressure 163/81 Blood Pressure 181/81 Blood Pressure 174/81 Blood Pressure 143/80 Blood Pressure 176/81 Blood Pressure 164/81 O2 Sat by Pulse Oximetry 95 O2 Sat by Pulse Oximetry 99 O2 Sat by Pulse Oximetry 95 O2 Sat by Pulse Oximetry 95 O2 Sat by Pulse Oximetry 98 O2 Sat by Pulse Oximetry 98 O2 Sat by Pulse Oximetry 98 O2 Sat by Pulse Oximetry 98 Intake and Output: Intake & Output 09/23/24 09/24/24 09/25/24 09/26/24 11:59 11:59 11:59 11:59 Intake Total 2714 / 2714 2577 / 2577 3027 / 3027 2144 / 2144 Output Total 1900 / 1900 2600 / 2600 3200 / 3200 2300 / 2300 Balance 814 / 814 -23 / -23 -173 / -173 -156 / -156 Physical Exam Oriented: Normal, Time, Person and Place Eyes: Normal Nose: Normal Respiratory: Generalized, Diminished and Rhonchi Cardiovascular: Normal Auscultation: Bowel Sounds: Normal Tenderness: Normal Skin: Decreased Turgur Musculoskeletal: Normal Psychiatric: Normal Mood Description: Calm Affect: Normal Speech Pattern: Appropriate and Unclear Laboratory and Diagnostics 09/26/24 04:53 09/26/24 04:53 Labs: 09/14/24 21:40 Blood Blood Culture - Final 09/14/24 21:30 Blood Blood Culture - Final 09/18/24 09:27 Sputum - Expectorated Sputum Sputum Culture - Preliminary 09/18/24 09:27 Sputum - Expectorated Sputum - Final 09/13/24 17:17 Blood Blood Culture - Final 09/13/24 17:08 Blood Blood Culture - Final Laboratory WBC 9.1 X10^3/uL (3.6-10.0) 09/26/24 04:53 RBC 2.51 X10^6/uL (4.7-6.0) L 09/26/24 04:53 Hgb 8.9 g/dL (13.5-18.0) L 09/26/24 04:53 Hct 25.6 % (42.0-54.0) L 09/26/24 04:53 MCV 102.0 fL (80.0-100.0) H 09/26/24 04:53 MCH 35.5 pg (27.0-34.0) H 09/26/24 04:53 MCHC 34.8 g/dL (33.0-35.0) 09/26/24 04:53 RDW 15.0 % (11.6-16.5) 09/26/24 04:53 Plt Count 24 X10^3/uL (150.0-450.0) L 09/26/24 04:53 Plt Count Comment Decreased (ADEQUATE) 09/21/24 05:02 MPV 8.6 fL (7.4-11.0) 09/26/24 04:53 Neut % (Auto) 84.8 % (42.0-75.0) H 09/26/24 04:53 Lymph % (Auto) 11.8 % (21.0-51.0) L 09/26/24 04:53 Davie % (Auto) 2.7 % (0.0-13.0) 09/26/24 04:53 Eos % (Auto) 0.6 % (0.9-2.9) L 09/26/24 04:53 Baso % (Auto) 0.1 % (0.2-1.0) L 09/26/24 04:53 Neut # (Auto) 7.7 x10^3/uL (2.2-4.8) H 09/26/24 04:53 Lymph # (Auto) 1.1 X10^3/uL (1.3-2.9) L 09/26/24 04:53 [place]ie # (Auto) 0.2 x10^3/uL (0.3-0.8) L 09/26/24 04:53 Eos # (Auto) 0.1 x10^3/uL (0.0-0.2) 09/26/24 04:53 Baso # (Auto) 0.0 X10^3/uL (0.0-0.1) 09/26/24 04:53 Absolute Nucleated RBC 0.0 /100WBC 09/26/24 04:53 Total Counted 100 09/21/24 05:02 Neutrophils % (Manual) 94 % (39-76) H 09/21/24 05:02 Band Neutrophils % 4 % (0-10) 09/15/24 04:50 Lymphocytes % (Manual) 5 % (13-43) L 09/21/24 05:02 Monocytes % (Manual) 1 % (4-9) L 09/21/24 05:02 Eosinophils % (Manual) 0 % (0-6) 09/21/24 05:02 Basophils % (Manual) 0 % (0-1) 09/21/24 05:02 Plt Morphology Comment Normal (NORMAL) 09/21/24 05:02 RBC Morphology Abnormal (NORMAL) 09/21/24 05:02 Macrocytosis Slight A 09/21/24 05:02 Target Cells Slight A 09/21/24 05:02 Schistocytes Slight A 09/21/24 05:02 Sample Site Lr 09/25/24 05:00 ABG pH 7.470 (7.35-7.45) H 09/25/24 05:00 ABG pCO2 30.0 mmHg (35.0-45.0) L 09/25/24 05:00 ABG pO2 56.0 mmHg (80.0-100.0) L 09/25/24 05:00 ABG HCO3 21.8 mmol/L (22-26) L 09/25/24 05:00 ABG O2 Saturation 91.0 % (90-100) 09/25/24 05:00 ABG Base Excess -1.0 mmol/L (-2.0-2.0) 09/25/24 05:00 Ziyad Test Pos 09/25/24 05:00 A-a Gradient 135.0 mmHg 09/25/24 05:00 FiO2 32.0 09/25/24 05:00 Blood Gas Comments Griselda well sw 09/25/24 05:00 Sodium 142 mmol/L (136-145) 09/26/24 04:53 Corrected Sodium TNP 09/26/24 04:53 Potassium 3.8 mmol/L (3.5-5.1) 09/26/24 04:53 Chloride 107 mmol/L (98-107) 09/26/24 04:53 Carbon Dioxide 25.0 mmol/L (21-32) 09/26/24 04:53 BUN 22 mg/dL (7-18) H 09/26/24 04:53 Creatinine 1.07 mg/dL (0.70-1.30) 09/26/24 04:53 Est GFR (MDRD) Af Amer > 60 (>60) 09/26/24 04:53 Est GFR (MDRD) Non-Af > 60 (>60) 09/26/24 04:53 Glucose 104 mg/dL (65-99) H 09/26/24 04:53 Hemoglobin A1c 6.9 % 09/15/24 04:50 Lactic Acid 2.0 mmol/L (0.4-2.0) 09/13/24 20:58 Calcium 8.8 mg/dL (8.5-10.1) 09/26/24 04:53 Corrected Calcium 9.5 mg/dL (8.5-10.1) 09/26/24 04:53 Phosphorus 3.4 mg/dL (2.6-4.7) 09/19/24 05:18 Magnesium 2.4 mg/dL (2.0-2.9) 09/22/24 04:45 Iron 62 ug/dL (50-175) 09/19/24 05:18 TIBC 107 ug/dL (250-450) L 09/19/24 05:18 Transferrin 71 mg/dL (202-364) L 09/19/24 05:18 Ferritin 4685 ng/mL (26-388) H 09/19/24 05:18 Total Bilirubin 1.30 mg/dL (0.2-1.0) H 09/26/24 04:53 Direct Bilirubin 0.30 mg/dL (0-0.2) H 09/19/24 05:18 AST 28 Units/L (15-37) 09/26/24 04:53 ALT 45 Units/L (12-78) 09/26/24 04:53 Alkaline Phosphatase 81 Units/L (46-116) 09/26/24 04:53 C-Reactive Protein 18.10 mg/L (0-3.0) H 09/22/24 04:45 B-Natriuretic Peptide 227 pg/mL (0-79) H 09/26/24 04:53 Total Protein 6.0 g/dL (6.4-8.2) L 09/26/24 04:53 Albumin 3.1 g/dL (3.4-5.0) L 09/26/24 04:53 Globulin 2.9 g/dL (2.5-4.5) 09/26/24 04:53 Albumin/Globulin Ratio 1.1 Ratio (1.1-2.1) 09/26/24 04:53 Vitamin B12 1707 pg/mL (193-986) H 09/19/24 05:18 Folate 6.3 ng/mL (>8.6) L 09/19/24 05:18 Specimen Type Clean catch urine 09/13/24 19:29 Urine Color Yellow (YELLOW) 09/13/24 19:29 Urine Appearance Hazy (CLEAR) 09/13/24 19: Urine pH 6.0 (5.0 - 8.0) 09/13/24 19:29 Ur Specific [place] 1.020 (1.000-1.030) 09/13/24 19:29 Urine Protein 3+ (NEGATIVE) 09/13/24 19:29 Urine Glucose (UA) Negative (NEGATIVE) 09/13/24 19:29 Urine Ketones Negative (NEGATIVE) 09/13/24 19:29 Urine Blood 5+ (NEGATIVE) 09/13/24 19:29 Urine Nitrite Negative (NEGATIVE) 09/13/24 19: Urine Bilirubin Negative (NEGATIVE) 09/13/24 19:29 Urine Urobilinogen 2+ (NORMAL) 09/13/24 19:29 Ur Leukocyte Esterase Negative (NEGATIVE) 09/13/24 19:29 Urine RBC 0-2 /HPF (0-3) 09/13/24 19:29 Urine WBC 0-2 /HPF (0-5) 09/13/24 19:29 Ur Squamous Epith Cells Rare /HPF (NEGATIVE) 09/13/24 19:29 Amorphous Sediment 1+ /HPF (NEGATIVE) 09/13/24 19: Urine Bacteria Trace /HPF (NEGATIVE) 09/13/24 19: Granular Casts Moderate /LPF (NEGATIVE) 09/13/24 19:29 Ur Culture Indicated? No/not indicated 09/13/24 19:29 Stl Occult Blood (IFOB) Negative (NEGATIVE) 09/23/24 14:54 Random Gentamicin 3.5 ug/mL 09/25/24 23:30 SARS-CoV-2 (PCR) Negative (NEGATIVE) 09/13/24 14:56 Influenza Type A (PCR) Negative (NEGATIVE) 09/13/24 14:56 Influenza Type B (PCR) Negative (NEGATIVE) 09/13/24 14:56 RSV (PCR) Negative (NEGATIVE) 09/13/24 14:56 Resp Viral Panel (PCR) See scanned report 09/13/24 20:10 Blood Type O POSITIVE 09/19/24 09:40 Antibody Screen Negative 09/19/24 09:40 Crossmatch See Detail 09/19/24 09:40 Plan (1) Right lower lobe pneumonia: Status: Acute Qualifiers: Pneumonia type: due to unspecified organism Qualified Code(s): J18.9 - Pneumonia, unspecified organism Narrative Support Text: Patient continues to make slow progress in the treatment of his bilateral pneumonia. Plan: 1. I'm decreasing the prednisone dosage to help lower blood pressure. 2. I'm also reducing IV fluid intake to decrease urination frequency. 3. Adding gentamicin to the current antibiotic regimen to address pneumonia in both lungs. 4. I'll request a pharmacy consult for the gentamicin dosage. 5. Follow-up chest x-ray report when available. 6. Repeat chest x-ray tomorrow. 7. Continue IV azithromycin, cefepime, and IV fluconazole since the patient had positive yeast in the sputum culture as well. (2) Atrial fibrillation with RVR: Status: Resolved Plan: Continue Eliquis at this time. (3) Dehydration: Status: Resolved Plan: Continue IV normal saline hydration at this time. (4) Hyponatremia: Status: Resolved Plan: Continue hydration therapy with normal saline IV fluid. (5) Essential hypertension: Status: Acute Narrative Support Text: Uncontrolled. Plan: Continue: 1. Decrease Cardizem Cardizem 360 mg 1 p.o. daily to 240 mg 1 p.o. daily since his heart rate is in the 60s and I will increase his metoprolol ER for better antihypertensive control. 2. Continue telmisartan 80 mg 1 p.o. daily 3. Increase metoprolol ER from 25 mg p.o. daily to 50 mg 1 p.o. daily. 4. Continue to monitor blood pressure and adjust antihypertensives accordingly. (6) Thrombocytopenia: Status: Acute Narrative Support Text: Platelet count today 22,000. Recheck tomorrow. Plan: 1. Follow daily CBCs to monitor for platelet count improvement. 2. Transfuse platelets if his platelet count drops below 20,000. (7) Elevated LFTs: Status: Acute Plan: Monitor for continued improvement. (8) Hypoalbuminemia: Status: Acute Plan: 25% albumin 100 mL IV daily. Encourage the patient to eat more. Megace 40 mg p.o. twice daily was started to help get the patient's protein and albumin levels increased. (9) Elevated brain natriuretic peptide (BNP) level: Status: Acute Plan: Repeat BMP again tomorrow as well as chest x-ray. We will diurese if needed. (10) Glaucoma: Status: Acute Plan: Continue dorzolamidetimolol ophthalmic drops. (11) Hyperglycemia: Status: Acute (12) History of malignant neoplasm of prostate: Status: Acute (13) Hx of prostatectomy: Status: Acute (14) Hyperbilirubinemia: Status: Acute (15) Chronic idiopathic thrombocytopenia: Status: Acute
--- NOTE | 2024-09-26 13:06 | PCM.PROG ---
Progress Note Progress Note for Day of Date of Exam: 09/26/24 Subjective Subjective: The patient tells me that he is doing much better today compared to yesterday. He tells me he has been up walking around his room and that he is able to do it longer than the previous night and that he is not getting as tired when he is walking around. He tells me that he is feeling like going home today but I told him that he needs to stay at least until the end of the week since he is still having significant rhonchi in his lungs on exam. The patient's chest x-ray yesterday showed that he has continued bilateral consolidations that were unchanged from the previous day, and this morning's chest x-ray also reports the same thing. I did add IV gentamicin yesterday morning since his pneumonia has not changed much with the IV cefepime and azithromycin. I also started him on IV Diflucan a few days ago since his sputum culture did come back positive for yeast. The current identification of the yeast species has not been completely identified at this time, and final identification is not yet available. Clinical Observations: The patient reports feeling fine and back to normal. Blood platelet count has dropped from 40,000 yesterday to 24,000 this morning. There was no reported blood in stool on fecal occult blood testing recently more on exam this morning abdominal pain. The patient is slightly distended. Lung sounds indicate improved air movement, especially on the right side, with some bronchi still present. The patient has been walking around, reporting weakness initially but improvement yesterday. The patient sat in the chair for 2-3 hours yesterday without issues. The patient reports improved strength and stamina. He also reports he is appetite is improving. The patient is currently on 3 L nasal cannula and his SpO2 is 100%. IV access is difficult to obtain per nursing this morning. Past Medical Family Social History Past Med/Fam/Surg Hx: No changes since H&P Allergies: Allergies No Known Allergies Allergy (Verified 09/13/24 14:44) Review of Systems ROS: No change since H&P Vital Signs and I&O's Vital Signs: Vital Signs Temperature 98.7 F Temperature 98.4 F Pulse Rate 83 Pulse Rate 102 Pulse Rate 84 Pulse Rate 93 Pulse Rate 104 Pulse Rate 89 Pulse Rate 81 Pulse Rate 72 Pulse Rate 89 Pulse Rate 70 Pulse Rate 64 Respiratory Rate 17 Respiratory Rate 31 Respiratory Rate 12 Respiratory Rate 19 Respiratory Rate 23 Respiratory Rate 24 Respiratory Rate 12 Respiratory Rate 19 Respiratory Rate 13 Respiratory Rate 13 Blood Pressure 149/71 Blood Pressure 141/73 Blood Pressure 129/65 Blood Pressure 149/90 Blood Pressure 148/88 Blood Pressure 164/79 Blood Pressure 163/81 Blood Pressure 181/81 O2 Sat by Pulse Oximetry 100 O2 Sat by Pulse Oximetry 100 O2 Sat by Pulse Oximetry 100 O2 Sat by Pulse Oximetry 100 O2 Sat by Pulse Oximetry 100 O2 Sat by Pulse Oximetry 95 O2 Sat by Pulse Oximetry 100 O2 Sat by Pulse Oximetry 100 O2 Sat by Pulse Oximetry 99 O2 Sat by Pulse Oximetry 95 O2 Sat by Pulse Oximetry 95 Intake and Output: Intake & Output 09/24/24 09/25/24 09/26/24 09/27/24 11:59 11:59 11:59 11:59 Intake Total 2577 / 2577 3027 / 3027 2144 / 2144 Output Total 2600 / 2600 3200 / 3200 2300 / 2300 300 / 300 Balance -23 / -23 -173 / -173 -156 / -156 -300 / -300 Physical Exam Oriented: Normal, Time, Person and Place Eyes: Normal Nose: Normal Respiratory: Generalized and Rhonchi Cardiovascular: Normal Auscultation: Bowel Sounds: Normal Tenderness: Normal Skin: Decreased Turgur Musculoskeletal: Normal Psychiatric: Normal Mood Description: Calm Affect: Normal Speech Pattern: Appropriate and Unclear Laboratory and Diagnostics 09/26/24 04:53 09/26/24 04:53 Labs: 09/14/24 21:40 Blood Blood Culture - Final 09/14/24 21:30 Blood Blood Culture - Final 09/18/24 09:27 Sputum - Expectorated Sputum Sputum Culture - Preliminary 09/18/24 09:27 Sputum - Expectorated Sputum - Final 09/13/24 17:17 Blood Blood Culture - Final 09/13/24 17:08 Blood Blood Culture - Final Laboratory WBC 9.1 X10^3/uL (3.6-10.0) 09/26/24 04:53 RBC 2.51 X10^6/uL (4.7-6.0) L 09/26/24 04:53 Hgb 8.9 g/dL (13.5-18.0) L 09/26/24 04:53 Hct 25.6 % (42.0-54.0) L 09/26/24 04:53 MCV 102.0 fL (80.0-100.0) H 09/26/24 04:53 MCH 35.5 pg (27.0-34.0) H 09/26/24 04:53 MCHC 34.8 g/dL (33.0-35.0) 09/26/24 04:53 RDW 15.0 % (11.6-16.5) 09/26/24 04:53 Plt Count 24 X10^3/uL (150.0-450.0) L 09/26/24 04:53 Plt Count Comment Decreased (ADEQUATE) 09/21/24 05:02 MPV 8.6 fL (7.4-11.0) 09/26/24 04:53 Neut % (Auto) 84.8 % (42.0-75.0) H 09/26/24 04:53 Lymph % (Auto) 11.8 % (21.0-51.0) L 09/26/24 04:53 Burke % (Auto) 2.7 % (0.0-13.0) 09/26/24 04:53 Eos % (Auto) 0.6 % (0.9-2.9) L 09/26/24 04:53 Baso % (Auto) 0.1 % (0.2-1.0) L 09/26/24 04:53 Neut # (Auto) 7.7 x10^3/uL (2.2-4.8) H 09/26/24 04:53 Lymph # (Auto) 1.1 X10^3/uL (1.3-2.9) L 09/26/24 04:53 Burke # (Auto) 0.2 x10^3/uL (0.3-0.8) L 09/26/24 04:53 Eos # (Auto) 0.1 x10^3/uL (0.0-0.2) 09/26/24 04:53 Baso # (Auto) 0.0 X10^3/uL (0.0-0.1) 09/26/24 04:53 Absolute Nucleated RBC 0.0 /100WBC 09/26/24 04:53 Total Counted 100 09/21/24 05:02 Neutrophils % (Manual) 94 % (39-76) H 09/21/24 05:02 Band Neutrophils % 4 % (0-10) 09/15/24 04:50 Lymphocytes % (Manual) 5 % (13-43) L 09/21/24 05:02 Monocytes % (Manual) 1 % (4-9) L 09/21/24 05:02 Eosinophils % (Manual) 0 % (0-6) 09/21/24 05:02 Basophils % (Manual) 0 % (0-1) 09/21/24 05:02 Plt Morphology Comment Normal (NORMAL) 09/21/24 05:02 RBC Morphology Abnormal (NORMAL) 09/21/24 05:02 Macrocytosis Slight A 09/21/24 05:02 Target Cells Slight A 09/21/24 05:02 Schistocytes Slight A 09/21/24 05:02 Sample Site Lr 09/25/24 05:00 ABG pH 7.470 (7.35-7.45) H 09/25/24 05:00 ABG pCO2 30.0 mmHg (35.0-45.0) L 09/25/24 05:00 ABG pO2 56.0 mmHg (80.0-100.0) L 09/25/24 05:00 ABG HCO3 21.8 mmol/L (22-26) L 09/25/24 05:00 ABG O2 Saturation 91.0 % (90-100) 09/25/24 05:00 ABG Base Excess -1.0 mmol/L (-2.0-2.0) 09/25/24 05:00 Ziyad Test Pos 09/25/24 05:00 A-a Gradient 135.0 mmHg 09/25/24 05:00 FiO2 32.0 09/25/24 05:00 Blood Gas Comments Griselda well sw 09/25/24 05:00 Sodium 142 mmol/L (136-145) 09/26/24 04:53 Corrected Sodium TNP 09/26/24 04:53 Potassium 3.8 mmol/L (3.5-5.1) 09/26/24 04:53 Chloride 107 mmol/L (98-107) 09/26/24 04:53 Carbon Dioxide 25.0 mmol/L (21-32) 09/26/24 04:53 BUN 22 mg/dL (7-18) H 09/26/24 04:53 Creatinine 1.07 mg/dL (0.70-1.30) 09/26/24 04:53 Est GFR (MDRD) Af Amer > 60 (>60) 09/26/24 04:53 Est GFR (MDRD) Non-Af > 60 (>60) 09/26/24 04:53 Glucose 104 mg/dL (65-99) H 09/26/24 04:53 Hemoglobin A1c 6.9 % 09/15/24 04:50 Lactic Acid 2.0 mmol/L (0.4-2.0) 09/13/24 20:58 Calcium 8.8 mg/dL (8.5-10.1) 09/26/24 04:53 Corrected Calcium 9.5 mg/dL (8.5-10.1) 09/26/24 04:53 Phosphorus 3.4 mg/dL (2.6-4.7) 09/19/24 05:18 Magnesium 2.4 mg/dL (2.0-2.9) 09/22/24 04:45 Iron 62 ug/dL (50-175) 09/19/24 05:18 TIBC 107 ug/dL (250-450) L 09/19/24 05:18 Transferrin 71 mg/dL (202-364) L 09/19/24 05:18 Ferritin 4685 ng/mL (26-388) H 09/19/24 05:18 Total Bilirubin 1.30 mg/dL (0.2-1.0) H 09/26/24 04:53 Direct Bilirubin 0.30 mg/dL (0-0.2) H 09/19/24 05:18 AST 28 Units/L (15-37) 09/26/24 04:53 ALT 45 Units/L (12-78) 09/26/24 04:53 Alkaline Phosphatase 81 Units/L (46-116) 09/26/24 04:53 C-Reactive Protein 18.10 mg/L (0-3.0) H 09/22/24 04:45 B-Natriuretic Peptide 227 pg/mL (0-79) H 09/26/24 04:53 Total Protein 6.0 g/dL (6.4-8.2) L 09/26/24 04:53 Albumin 3.1 g/dL (3.4-5.0) L 09/26/24 04:53 Globulin 2.9 g/dL (2.5-4.5) 09/26/24 04:53 Albumin/Globulin Ratio 1.1 Ratio (1.1-2.1) 09/26/24 04:53 Vitamin B12 1707 pg/mL (193-986) H 09/19/24 05:18 Folate 6.3 ng/mL (>8.6) L 09/19/24 05:18 Specimen Type Clean catch urine 09/13/24 19:29 Urine Color Yellow (YELLOW) 09/13/24 19: Urine Appearance Hazy (CLEAR) 09/13/24 19: Urine pH 6.0 (5.0 - 8.0) 09/13/24 19: Ur Specific [place] 1.020 (1.000-1.030) 09/13/24 19: Urine Protein 3+ (NEGATIVE) 09/13/24 19: Urine Glucose (UA) Negative (NEGATIVE) 09/13/24 19: Urine Ketones Negative (NEGATIVE) 09/13/24 19: Urine Blood 5+ (NEGATIVE) 09/13/24 19: Urine Nitrite Negative (NEGATIVE) 09/13/24 19: Urine Bilirubin Negative (NEGATIVE) 09/13/24 19: Urine Urobilinogen 2+ (NORMAL) 09/13/24 19: Ur Leukocyte Esterase Negative (NEGATIVE) 09/13/24 19:29 Urine RBC 0-2 /HPF (0-3) 09/13/24 19:29 Urine WBC 0-2 /HPF (0-5) 09/13/24 19:29 Ur Squamous Epith Cells Rare /HPF (NEGATIVE) 09/13/24 19:29 Amorphous Sediment 1+ /HPF (NEGATIVE) 09/13/24 19: Urine Bacteria Trace /HPF (NEGATIVE) 09/13/24 19: Granular Casts Moderate /LPF (NEGATIVE) 09/13/24 19: Ur Culture Indicated? No/not indicated 09/13/24 19:29 Stl Occult Blood (IFOB) Negative (NEGATIVE) 09/23/24 14:54 Random Gentamicin 3.5 ug/mL 09/25/24 23:30 SARS-CoV-2 (PCR) Negative (NEGATIVE) 09/13/24 14:56 Influenza Type A (PCR) Negative (NEGATIVE) 09/13/24 14:56 Influenza Type B (PCR) Negative (NEGATIVE) 09/13/24 14:56 RSV (PCR) Negative (NEGATIVE) 09/13/24 14:56 Resp Viral Panel (PCR) See scanned report 09/13/24 20:10 Blood Type O POSITIVE 09/19/24 09:40 Antibody Screen Negative 09/19/24 09:40 Crossmatch See Detail 09/19/24 09:40 Plan (1) Right lower lobe pneumonia: Status: Acute Qualifiers: Pneumonia type: due to unspecified organism Qualified Code(s): J18.9 - Pneumonia, unspecified organism Plan: 1. I ordered an occult blood test this morning since the patient is anemic. 2. We will administer milk of magnesia to help with bowel movement since he has not had a recent BM. 3. If no bowel movement occurs by the end of the shift, we will give Dulcolax. 4. We will continue to encourage the intake of Ensure for nutrition support. 5. Continue the cefepime, azithromycin, gentamicin and fluconazole. 6. Follow-up with final identification of the species or available and adjust antifungal medication treatment if needed. (2) Atrial fibrillation with RVR: Status: Resolved Plan: 1. Continue Eliquis at this time. 2. Continue oral Cardizem CD2 140 mg 1 p.o. daily 3. Continue metoprolol ER 100 mg 1 p.o. daily (3) Dehydration: Status: Resolved Plan: Continue IV normal saline hydration at this time. (4) Hyponatremia: Status: Resolved Plan: Continue hydration therapy with normal saline IV fluid. (5) Essential hypertension: Status: Acute Plan: Continue: 1. Decrease Cardizem Cardizem 360 mg 1 p.o. daily to 240 mg 1 p.o. daily since his heart rate is in the 60s and I will increase his metoprolol ER for better antihypertensive control. 2. Continue telmisartan 80 mg 1 p.o. daily 3. Increase metoprolol ER from 50 mg p.o. daily to 100 mg 1 p.o. daily. 4. Continue to monitor blood pressure and adjust antihypertensives accordingly. (6) Thrombocytopenia: Status: Acute Narrative Support Text: The patient's platelet count this morning remains at 22,000 which is the same as yesterday. Currently, I am still unsure as to why the patient has thrombocytope rozina. Plan: 1. Follow daily CBCs to monitor for platelet count improvement. 2. Transfuse platelets if his platelet count drops below 20,000. (7) Elevated LFTs: Status: Resolved Narrative Support Text: The patient's LFTs have now normalized. Plan: Continue daily monitoring to make sure the patient's LFTs are not changing. (8) Hypoalbuminemia: Status: Acute Narrative Support Text: The patient's albumin levels are now 3.1 today and much improved since admission. Plan: 25% albumin 100 mL IV daily. Encourage the patient to eat more. Megace 40 mg p.o. twice daily was started to help get the patient's protein and albumin levels increased. (9) Elevated brain natriuretic peptide (BNP) level: Status: Acute Narrative Support Text: Patient's BNP is slightly greater than 200 so we will continue to monitor this daily. Plan: Repeat BMP again tomorrow as well as chest x-ray. We will diurese if needed. (10) Glaucoma: Status: Acute Plan: Continue dorzolamidetimolol ophthalmic drops. (11) Hyperglycemia: Status: Acute Plan: Check hemoglobin A1c for tomorrow morning. (12) History of malignant neoplasm of prostate: Status: Acute (13) Hx of prostatectomy: Status: Acute Plan: Plan/Recommendations Plan to continue monitoring Rajesh's hemoglobin and platelet levels. We will transfuse the patient with 1 unit of packed red blood cells today and premedicating with Tylenol and Benadryl. We will check Vitamin B12 and folate levels to rule out deficiencies contributing to macrocytosis. Rajesh's nutritional intake will be emphasized to assist in infection recovery and strength. Encourage him to sit up in a chair today as part of his recovery. Protonix will be increased to 40 mg IV BID due to changes in his hemoglobin levels. Since the patient is still not eating a lot I will start him on Megace 40 mg twice daily. (14) Hyperbilirubinemia: Status: Acute Narrative Support Text: The patient's bilirubin level this morning has decreased to 1.3 which is improved from the previous day. Plan: Follow daily total bilirubin levels. (15) Chronic idiopathic thrombocytopenia: Status: Acute Plan: Transfuse a pack of platelets if his platelet count drops below 20,000.
[2024-09-26] MEDS: GENTAMICIN INJ 480 MG in NS 100 ML IV 100 ML IV SCH (22:12)
[2024-09-27 05:50] LABS: HEMOGLOBIN 8.9 g/dL (13.5-18.0); RED BLOOD COUNT 2.54 X10^6/uL (4.7-6.0)
[2024-09-27 05:56] LABS: BASOPHILS % (AUTO) 0.1 % (0.2-1.0); EOSINOPHILS # (AUTO) 0.1 x10^3/uL (0.0-0.2); EOSINOPHILS % (AUTO) 0.7 % (0.9-2.9); HEMATOCRIT 25.7 % (42.0-54.0); LYMPHOCYTES # (AUTO) 0.9 X10^3/uL (1.3-2.9); LYMPHOCYTES % (AUTO) 10.8 % (21.0-51.0); MEAN CORPUSCULAR HEMOGLOBIN 34.9 pg (27.0-34.0); MEAN CORPUSCULAR HGB CONC 34.4 g/dL (33.0-35.0); MEAN CORPUSCULAR VOLUME 101.5 fL (80.0-100.0); MEAN PLATELET VOLUME 8.1 fL (7.4-11.0); MONOCYTES # (AUTO) 0.4 x10^3/uL (0.3-0.8); NEUTROPHILS # (AUTO) 7.4 x10^3/uL (2.2-4.8); NEUTROPHILS % (AUTO) 84.4 % (42.0-75.0); RED CELL DISTRIBUTION WIDTH 15.3 % (11.6-16.5); WHITE BLOOD COUNT 8.8 X10^3/uL (3.6-10.0)
[2024-09-27 06:01] LABS: ALANINE AMINOTRANSFERASE 57 Units/L (12-78); ALBUMIN 3.3 g/dL (3.4-5.0); ALKALINE PHOSPHATASE 81 Units/L (46-116); ASPARTATE AMINO TRANSFERASE 32 Units/L (15-37); BLOOD UREA NITROGEN 26 mg/dL (7-18); CALCIUM 8.9 mg/dL (8.5-10.1); CARBON DIOXIDE 26.3 mmol/L (21-32); CHLORIDE 106 mmol/L (98-107); COR CA(FOR HYPOALB) 9.5 mg/dL (8.5-10.1); CREATININE 1.18 mg/dL (0.70-1.30); GLUCOSE 107 mg/dL (65-99); MAGNESIUM 2.2 mg/dL (2.0-2.9); POTASSIUM 4.2 mmol/L (3.5-5.1); SODIUM 141 mmol/L (136-145); TOTAL PROTEIN 6.5 g/dL (6.4-8.2); eGFR NON BLACK RACES > 60 (>60)
[2024-09-27 06:03] LABS: PLATELET COUNT 20 X10^3/uL (150.0-450.0)
--- NOTE | 2024-09-27 07:40 | RAD ---
EXAM: CHEST, 1 VIEW HISTORY: PNEUMONIA ; GERD, HTN, RENAL DISEASE SX: PROSTATECTOMY COMPARISON: Prior study or studies were utilized for comparison during interpretation with the most relevant yuridia ed 09/26/2020 TECHNIQUE: CHEST, 1 VIEW FINDINGS: Chest: Lines and tubes: Cardiac leads overlie the chest. Mediastinum: Cardiac and mediastinal shadow is within normal limits for size and contour. Pulmonary vessels: No pulmonary vascular congestion. Lung banda: Patchy opacities are seen throughout the lungs. There is a right upper lobe consolidati on Pleura: No effusion. No pneumothorax. Bones and soft tissues: No acute osseous or soft tissue abnormality. IMPRESSION: 1. Right upper lung field pneumonia THIS IS AN ELECTRONICALLY VERIFIED FINAL REPORT 09/27/2024 7:37 AM - Electronically signed by Drew Cosby MD
[2024-09-27] MEDS: PREDNISONE TAB 5 MG PO SCH (08:51)
[2024-09-27] MEDS: HEMOCYTE-PLUS PO SCH (09:58)
[2024-09-27] MEDS: PHARMACY COMMENT IV NR (10:14)
--- NOTE | 2024-09-27 15:04 | PCM.PROG ---
Progress Note Progress Note for Day of Date of Exam: 09/27/24 Subjective Subjective: The patient reports feeling good and had a good bowel movement Blood pressure has improved compared to previous readings Oxygen saturation is good The patient sat up in a chair for a couple of hours yesterday, he states. The patient walked around the room yesterday without issues he tells me. Patient denies shortness of breath Lung auscultation reveals improved air movement, some bronchi still present Chest x-ray shows: Patchy opacities throughout the lungs Right upper lobe consolidation No left upper lobe consolidation (improvement from previous x-rays) Blood platelets are low Patient denies pain in stomach or abdomen Albumin level is 3.3 Hemoglobin level is 8.9 Patient is on 2 liter nasal cannula oxygen Overall, patient's condition is improving, but progress has been slow Past Medical Family Social History Past Med/Fam/Surg Hx: No changes since H&P Allergies: Allergies No Known Allergies Allergy (Verified 09/13/24 14:44) Review of Systems ROS: No change since H&P Vital Signs and I&O's Vital Signs: Vital Signs Temperature 97.5 F Temperature 98.2 F Pulse Rate 74 Pulse Rate 75 Pulse Rate 61 Pulse Rate 72 Pulse Rate 77 Pulse Rate 78 Pulse Rate 78 Pulse Rate 68 Pulse Rate 57 Pulse Rate 90 Pulse Rate 87 Respiratory Rate 18 Respiratory Rate 23 Respiratory Rate 20 Respiratory Rate 16 Respiratory Rate 17 Respiratory Rate 23 Respiratory Rate 14 Respiratory Rate 31 Respiratory Rate 23 Blood Pressure 126/61 Blood Pressure 135/66 Blood Pressure 137/65 Blood Pressure 122/63 Blood Pressure 123/67 Blood Pressure 134/70 Blood Pressure 150/65 Blood Pressure 153/81 O2 Sat by Pulse Oximetry 100 O2 Sat by Pulse Oximetry 100 O2 Sat by Pulse Oximetry 100 O2 Sat by Pulse Oximetry 100 O2 Sat by Pulse Oximetry 100 O2 Sat by Pulse Oximetry 100 O2 Sat by Pulse Oximetry 100 O2 Sat by Pulse Oximetry 100 O2 Sat by Pulse Oximetry 100 O2 Sat by Pulse Oximetry 99 Intake and Output: Intake & Output 09/25/24 09/26/24 09/27/24 09/28/24 11:59 11:59 11:59 11:59 Intake Total 3027 / 3027 2144 / 2144 1736 / 1736 Output Total 3200 / 3200 2300 / 2300 1425 / 1425 Balance -173 / -173 -156 / -156 311 / 311 Physical Exam Oriented: Normal, Time, Person and Place Eyes: Normal Nose: Normal Respiratory: Generalized and Rhonchi Cardiovascular: Normal Auscultation: Bowel Sounds: Normal Tenderness: Normal Skin: Decreased Turgur Musculoskeletal: Normal Psychiatric: Normal Mood Description: Calm Affect: Normal Speech Pattern: Appropriate and Unclear Laboratory and Diagnostics 09/27/24 05:30 09/27/24 05:30 Labs: 09/14/24 21:40 Blood Blood Culture - Final 09/14/24 21:30 Blood Blood Culture - Final 09/18/24 09:27 Sputum - Expectorated Sputum Sputum Culture - Preliminary 09/18/24 09:27 Sputum - Expectorated Sputum - Final 09/13/24 17:17 Blood Blood Culture - Final 09/13/24 17:08 Blood Blood Culture - Final Laboratory WBC 8.8 X10^3/uL (3.6-10.0) 09/27/24 05:30 RBC 2.54 X10^6/uL (4.7-6.0) L 09/27/24 05:30 Hgb 8.9 g/dL (13.5-18.0) L 09/27/24 05:30 Hct 25.7 % (42.0-54.0) L 09/27/24 05:30 MCV 101.5 fL (80.0-100.0) H 09/27/24 05:30 MCH 34.9 pg (27.0-34.0) H 09/27/24 05:30 MCHC 34.4 g/dL (33.0-35.0) 09/27/24 05:30 RDW 15.3 % (11.6-16.5) 09/27/24 05:30 Plt Count 20 X10^3/uL (150.0-450.0) L* 09/27/24 05:30 Plt Count Comment Decreased (ADEQUATE) 09/21/24 05:02 MPV 8.1 fL (7.4-11.0) 09/27/24 05:30 Neut % (Auto) 84.4 % (42.0-75.0) H 09/27/24 05:30 Lymph % (Auto) 10.8 % (21.0-51.0) L 09/27/24 05:30 [place] % (Auto) 4.0 % (0.0-13.0) 09/27/24 05:30 Eos % (Auto) 0.7 % (0.9-2.9) L 09/27/24 05:30 Baso % (Auto) 0.1 % (0.2-1.0) L 09/27/24 05:30 Neut # (Auto) 7.4 x10^3/uL (2.2-4.8) H 09/27/24 05:30 Lymph # (Auto) 0.9 X10^3/uL (1.3-2.9) L 09/27/24 05:30 [place] # (Auto) 0.4 x10^3/uL (0.3-0.8) 09/27/24 05:30 Eos # (Auto) 0.1 x10^3/uL (0.0-0.2) 09/27/24 05:30 Baso # (Auto) 0.0 X10^3/uL (0.0-0.1) 09/27/24 05:30 Absolute Nucleated RBC 0.1 /100WBC 09/27/24 05:30 Total Counted 100 09/21/24 05:02 Neutrophils % (Manual) 94 % (39-76) H 09/21/24 05:02 Band Neutrophils % 4 % (0-10) 09/15/24 04:50 Lymphocytes % (Manual) 5 % (13-43) L 09/21/24 05:02 Monocytes % (Manual) 1 % (4-9) L 09/21/24 05:02 Eosinophils % (Manual) 0 % (0-6) 09/21/24 05:02 Basophils % (Manual) 0 % (0-1) 09/21/24 05:02 Plt Morphology Comment Normal (NORMAL) 09/21/24 05:02 RBC Morphology Abnormal (NORMAL) 09/21/24 05:02 Macrocytosis Slight A 09/21/24 05:02 Target Cells Slight A 09/21/24 05:02 Schistocytes Slight A 09/21/24 05:02 Smear Path Review See scanned report 09/19/24 05:18 Sample Site Lr 09/25/24 05:00 ABG pH 7.470 (7.35-7.45) H 09/25/24 05:00 ABG pCO2 30.0 mmHg (35.0-45.0) L 09/25/24 05:00 ABG pO2 56.0 mmHg (80.0-100.0) L 09/25/24 05:00 ABG HCO3 21.8 mmol/L (22-26) L 09/25/24 05:00 ABG O2 Saturation 91.0 % (90-100) 09/25/24 05:00 ABG Base Excess -1.0 mmol/L (-2.0-2.0) 09/25/24 05:00 Ziyad Test Pos 09/25/24 05:00 A-a Gradient 135.0 mmHg 09/25/24 05:00 FiO2 32.0 09/25/24 05:00 Blood Gas Comments Griselda well sw 09/25/24 05:00 Sodium 141 mmol/L (136-145) 09/27/24 05:30 Corrected Sodium TNP 09/27/24 05:30 Potassium 4.2 mmol/L (3.5-5.1) 09/27/24 05:30 Chloride 106 mmol/L (98-107) 09/27/24 05:30 Carbon Dioxide 26.3 mmol/L (21-32) 09/27/24 05:30 BUN 26 mg/dL (7-18) H 09/27/24 05:30 Creatinine 1.18 mg/dL (0.70-1.30) 09/27/24 05:30 Est GFR (MDRD) Af Amer > 60 (>60) 09/27/24 05:30 Est GFR (MDRD) Non-Af > 60 (>60) 09/27/24 05:30 Glucose 107 mg/dL (65-99) H 09/27/24 05:30 Hemoglobin A1c 6.9 % 09/15/24 04:50 Lactic Acid 2.0 mmol/L (0.4-2.0) 09/13/24 20:58 Calcium 8.9 mg/dL (8.5-10.1) 09/27/24 05:30 Corrected Calcium 9.5 mg/dL (8.5-10.1) 09/27/24 05:30 Phosphorus 3.4 mg/dL (2.6-4.7) 09/19/24 05:18 Magnesium 2.2 mg/dL (2.0-2.9) 09/27/24 05:30 Iron 62 ug/dL (50-175) 09/19/24 05:18 TIBC 107 ug/dL (250-450) L 09/19/24 05:18 Transferrin 71 mg/dL (202-364) L 09/19/24 05:18 Ferritin 4685 ng/mL (26-388) H 09/19/24 05:18 Total Bilirubin 1.30 mg/dL (0.2-1.0) H 09/27/24 05:30 Direct Bilirubin 0.30 mg/dL (0-0.2) H 09/19/24 05:18 AST 32 Units/L (15-37) 09/27/24 05:30 ALT 57 Units/L (12-78) 09/27/24 05:30 Alkaline Phosphatase 81 Units/L (46-116) 09/27/24 05:30 C-Reactive Protein 18.10 mg/L (0-3.0) H 09/22/24 04:45 B-Natriuretic Peptide 227 pg/mL (0-79) H 09/26/24 04:53 Total Protein 6.5 g/dL (6.4-8.2) 09/27/24 05:30 Albumin 3.3 g/dL (3.4-5.0) L 09/27/24 05:30 Globulin 3.2 g/dL (2.5-4.5) 09/27/24 05:30 Albumin/Globulin Ratio 1.0 Ratio (1.1-2.1) L 09/27/24 05:30 Vitamin B12 1707 pg/mL (193-986) H 09/19/24 05:18 Folate 6.3 ng/mL (>8.6) L 09/19/24 05:18 Specimen Type Clean catch urine 09/13/24 19:29 Urine Color Yellow (YELLOW) 09/13/24 19: Urine Appearance Hazy (CLEAR) 09/13/24 19: Urine pH 6.0 (5.0 - 8.0) 09/13/24 19:29 Ur Specific [place] 1.020 (1.000-1.030) 09/13/24 19:29 Urine Protein 3+ (NEGATIVE) 09/13/24 19:29 Urine Glucose (UA) Negative (NEGATIVE) 09/13/24 19:29 Urine Ketones Negative (NEGATIVE) 09/13/24 19: Urine Blood 5+ (NEGATIVE) 09/13/24 19: Urine Nitrite Negative (NEGATIVE) 09/13/24 19: Urine Bilirubin Negative (NEGATIVE) 09/13/24 19: Urine Urobilinogen 2+ (NORMAL) 09/13/24 19: Ur Leukocyte Esterase Negative (NEGATIVE) 09/13/24 19: Urine RBC 0-2 /HPF (0-3) 09/13/24 19: Urine WBC 0-2 /HPF (0-5) 09/13/24 19:29 Ur Squamous Epith Cells Rare /HPF (NEGATIVE) 09/13/24 19: Amorphous Sediment 1+ /HPF (NEGATIVE) 09/13/24 19: Urine Bacteria Trace /HPF (NEGATIVE) 09/13/24 19: Granular Casts Moderate /LPF (NEGATIVE) 09/13/24 19: Ur Culture Indicated? No/not indicated 09/13/24 19: Stl Occult Blood (IFOB) Positive (NEGATIVE) A 09/27/24 07:35 Random Gentamicin 5.1 ug/mL 09/27/24 10:59 SARS-CoV-2 (PCR) Negative (NEGATIVE) 09/13/24 14:56 Influenza Type A (PCR) Negative (NEGATIVE) 09/13/24 14:56 Influenza Type B (PCR) Negative (NEGATIVE) 09/13/24 14:56 RSV (PCR) Negative (NEGATIVE) 09/13/24 14:56 Resp Viral Panel (PCR) See scanned report 09/13/24 20:10 Blood Type O POSITIVE 09/19/24 09:40 Antibody Screen Negative 09/19/24 09:40 Crossmatch See Detail 09/19/24 09:40 Radiology Reviewed: Yes Plan (1) Right lower lobe pneumonia: Status: Acute Qualifiers: Pneumonia type: due to unspecified organism Qualified Code(s): J18.9 - Pneumonia, unspecified organism Narrative Support Text: The patient's chest x-ray this morning shows that his left upper lobe pneumonia/consolidation has resolved. However, the right upper lobe consolidation remains at this time. Clinically, he is overall improved since admission and is slowly improving daily. Plan: Plan/Recommendations Continue current treatment plan Recheck chest x-ray tomorrow morning Administer 2 pack's of platelets today. Stop IV albumin after today's morning dose. Adjust prednisone dosage: -Today: 5 mg p.o. x 1 -Tomorrow: 2.5 mg p.o. x 1. -Tuesday: 2.5 mg once a day, then discontinue Start ferrous sulfate 325 mg PO once daily Start Colace 100 mg PO twice daily for constipation prevention from iron therapy. Continue monitoring hemoglobin levels Maintain 2 liter nasal cannula oxygen therapy (2) Atrial fibrillation with RVR: Status: Resolved Plan: 1. Continue Eliquis at this time. 2. Continue oral Cardizem CD 240 mg 1 p.o. daily 3. Continue metoprolol ER 100 mg 1 p.o. daily (3) Dehydration: Status: Resolved Plan: Continue IV normal saline hydration at this time. (4) Hyponatremia: Status: Resolved Plan: Continue hydration therapy with normal saline IV fluid. (5) Essential hypertension: Status: Acute Plan: Continue: 1. Decrease Cardizem Cardizem 360 mg 1 p.o. daily to 240 mg 1 p.o. daily since his heart rate is in the 60s and I will increase his metoprolol ER for better antihypertensive control. 2. Continue telmisartan 80 mg 1 p.o. daily 3. Increase metoprolol ER from 50 mg p.o. daily to 100 mg 1 p.o. daily. 4. Continue to monitor blood pressure and adjust antihypertensives accordingly. (6) Thrombocytopenia: Status: Acute Narrative Support Text: The patient's platelet count today is 20,000. Plan: 1. Follow daily CBCs to monitor for platelet count improvement. 2. Transfuse 2 packs of platelets today. Repeat CBC at around 1500 this afternoon. (7) Elevated LFTs: Status: Resolved Narrative Support Text: The patient's AST is improving but still slightly elevated. Plan: Continue daily monitoring to make sure the patient's LFTs are not changing. (8) Hypoalbuminemia: Status: Acute Narrative Support Text: Much improved. Plan: Continue Megace 40 mg p.o. twice daily was started to help get the patient's protein and albumin levels increased. We will plan on giving the patient IV albumin again today but after today we will plan on discontinuing it. (9) Elevated brain natriuretic peptide (BNP) level: Status: Acute Plan: Repeat BMP again tomorrow as well as chest x-ray. We will diurese if needed. (10) Glaucoma: Status: Acute Plan: Continue dorzolamidetimolol ophthalmic drops. (11) Hyperglycemia: Status: Acute Plan: Check hemoglobin A1c for tomorrow morning. (12) History of malignant neoplasm of prostate: Status: Acute (13) Hx of prostatectomy: Status: Acute Plan: Plan/Recommendations Plan to continue monitoring Rajesh's hemoglobin and platelet levels. We will transfuse the patient with 1 unit of packed red blood cells today and preme dicating with Tylenol and Benadryl. We will check Vitamin B12 and folate levels to rule out deficiencies contributing to macrocytosis. Rajesh's nutritional intake will be emphasized to assist in infection recovery and strength. Encourage him to sit up in a chair today as part of his recovery. Protonix will be increased to 40 mg IV BID due to changes in his hemoglobin levels. Since the patient is still not eating a lot I will start him on Megace 40 mg twice daily. (14) Hyperbilirubinemia: Status: Acute Plan: Follow daily total bilirubin levels.
[2024-09-27 18:07] LABS: BASOPHILS # (AUTO) 0.1 X10^3/uL (0.0-0.1); EOSINOPHILS # (AUTO) 0.1 x10^3/uL (0.0-0.2); EOSINOPHILS % (AUTO) 0.6 % (0.9-2.9); HEMATOCRIT 23.6 % (42.0-54.0); HEMOGLOBIN 8.1 g/dL (13.5-18.0); LYMPHOCYTES # (AUTO) 0.6 X10^3/uL (1.3-2.9); LYMPHOCYTES % (AUTO) 7.1 % (21.0-51.0); MEAN CORPUSCULAR HEMOGLOBIN 34.7 pg (27.0-34.0); MEAN CORPUSCULAR HGB CONC 34.2 g/dL (33.0-35.0); MEAN CORPUSCULAR VOLUME 101.5 fL (80.0-100.0); MONOCYTES # (AUTO) 0.3 x10^3/uL (0.3-0.8); MONOCYTES % (AUTO) 3.4 % (0.0-13.0); NEUTROPHILS % (AUTO) 87.9 % (42.0-75.0); PLATELET COUNT 69 X10^3/uL (150.0-450.0); RED BLOOD COUNT 2.32 X10^6/uL (4.7-6.0); RED CELL DISTRIBUTION WIDTH 15.2 % (11.6-16.5)
[2024-09-27] MEDS: COLACE CAP 100 MG PO SCH (21:24)
[2024-09-28 05:35] LABS: BASOPHILS % (AUTO) 0.5 % (0.2-1.0); EOSINOPHILS # (AUTO) 0.1 x10^3/uL (0.0-0.2); EOSINOPHILS % (AUTO) 1.3 % (0.9-2.9); HEMATOCRIT 24.7 % (42.0-54.0); HEMOGLOBIN 8.4 g/dL (13.5-18.0); LYMPHOCYTES # (AUTO) 0.9 X10^3/uL (1.3-2.9); LYMPHOCYTES % (AUTO) 12.5 % (21.0-51.0); MEAN CORPUSCULAR HEMOGLOBIN 34.5 pg (27.0-34.0); MEAN CORPUSCULAR HGB CONC 33.9 g/dL (33.0-35.0); MEAN CORPUSCULAR VOLUME 101.9 fL (80.0-100.0); MEAN PLATELET VOLUME 8.8 fL (7.4-11.0); MONOCYTES # (AUTO) 0.3 x10^3/uL (0.3-0.8); MONOCYTES % (AUTO) 4.6 % (0.0-13.0); NEUTROPHILS # (AUTO) 5.8 x10^3/uL (2.2-4.8); NEUTROPHILS % (AUTO) 81.1 % (42.0-75.0); PLATELET COUNT 57 X10^3/uL (150.0-450.0); RED BLOOD COUNT 2.42 X10^6/uL (4.7-6.0); RED CELL DISTRIBUTION WIDTH 15.3 % (11.6-16.5); WHITE BLOOD COUNT 7.1 X10^3/uL (3.6-10.0)
[2024-09-28 05:53] LABS: ALANINE AMINOTRANSFERASE 58 Units/L (12-78); ALBUMIN 3.2 g/dL (3.4-5.0); ALKALINE PHOSPHATASE 83 Units/L (46-116); ASPARTATE AMINO TRANSFERASE 29 Units/L (15-37); BLOOD UREA NITROGEN 22 mg/dL (7-18); CALCIUM 8.4 mg/dL (8.5-10.1); CARBON DIOXIDE 24.4 mmol/L (21-32); CHLORIDE 107 mmol/L (98-107); CREATININE 1.08 mg/dL (0.70-1.30); GLUCOSE 104 mg/dL (65-99); SODIUM 141 mmol/L (136-145); TOTAL PROTEIN 6.5 g/dL (6.4-8.2); eGFR NON BLACK RACES > 60 (>60)
--- NOTE | 2024-09-28 08:10 | RAD ---
EXAM:Portable chestHISTORY:Follow-up pneumoniaCOMPARISON:09/27/2024FINDINGS:H eart size is normal. Lungs are well inflated. Right upper lobe pneumonia is unchanged. Interstitial lung changes of a chronic nature are present throughout the lung banda. No pleural effusions identified. Bony thorax is unremarkable.IMPRESSION:No change right upper lobe pneumoniaTHIS IS AN ELECTRONICALLY VERIFIED FINAL [id number]/28/2024 8:07 AM - Electronically signed by Rosalio Perez MD
[2024-09-28] MEDS: PREDNISONE TAB 5 MG PO SCH (09:11)
--- NOTE | 2024-09-28 14:19 | PCM.PROG ---
Progress Note Progress Note for Day of Date of Exam: 09/28/24 Subjective Subjective: The patient tells me that he is feeling better and he is been walking around and doing okay with it. Clinically he continues to improve but his chest x-ray still shows that he had right upper lobe consolidation without change. His left lobe remains clear of pneumonia. His platelet count is elevated after he received 2 packs of platelets yesterday but they have dropped again since yesterday. He tells me that he had a recent colonoscopy a week or 2 before he got hospitalized here in [place] few weeks ago and we will try to obtain those labs to see if he was thrombocytopenic at that time. Will continue his current treatment at this time. Past Medical Family Social History Past Med/Fam/Surg Hx: No changes since H&P Allergies: Allergies No Known Allergies Allergy (Verified 09/13/24 14:44) Review of Systems ROS: No change since H&P Vital Signs and I&O's Vital Signs: Vital Signs Pulse Rate 75 Pulse Rate 76 Pulse Rate 80 Pulse Rate 80 Pulse Rate 88 Pulse Rate 84 Pulse Rate 64 Pulse Rate 82 Pulse Rate 53 Respiratory Rate 28 Respiratory Rate 12 Respiratory Rate 17 Respiratory Rate 14 Respiratory Rate 18 Respiratory Rate 20 Respiratory Rate 15 Respiratory Rate 14 Blood Pressure 134/69 Blood Pressure 117/61 Blood Pressure 135/70 Blood Pressure 152/68 O2 Sat by Pulse Oximetry 100 O2 Sat by Pulse Oximetry 100 O2 Sat by Pulse Oximetry 100 O2 Sat by Pulse Oximetry 100 O2 Sat by Pulse Oximetry 100 O2 Sat by Pulse Oximetry 100 O2 Sat by Pulse Oximetry 100 O2 Sat by Pulse Oximetry 100 O2 Sat by Pulse Oximetry 100 Intake and Output: Intake & Output 09/26/24 09/27/24 09/28/24 09/29/24 11:59 11:59 11:59 11:59 Intake Total 2144 / 2144 1736 / 1736 2399 / 2399 240 / 240 Output Total 2300 / 2300 1425 / 1425 1725 / 1725 400 / 400 Balance -156 / -156 311 / 311 674 / 674 -160 / -160 Physical Exam Oriented: Normal, Time, Person and Place Eyes: Normal Nose: Normal Respiratory: Generalized and Rhonchi Cardiovascular: Normal Auscultation: Bowel Sounds: Normal Tenderness: Normal Skin: Decreased Turgur Musculoskeletal: Normal Psychiatric: Normal Mood Description: Calm Affect: Normal Speech Pattern: Appropriate and Unclear Laboratory and Diagnostics 09/28/24 05:21 09/28/24 05:21 Labs: 09/14/24 21:40 Blood Blood Culture - Final 09/14/24 21:30 Blood Blood Culture - Final 09/18/24 09:27 Sputum - Expectorated Sputum Sputum Culture - Preliminary 09/18/24 09:27 Sputum - Expectorated Sputum - Final 09/13/24 17:17 Blood Blood Culture - Final 09/13/24 17:08 Blood Blood Culture - Final Laboratory WBC 7.1 X10^3/uL (3.6-10.0) 09/28/24 05:21 RBC 2.42 X10^6/uL (4.7-6.0) L 09/28/24 05:21 Hgb 8.4 g/dL (13.5-18.0) L 09/28/24 05:21 Hct 24.7 % (42.0-54.0) L 09/28/24 05:21 MCV 101.9 fL (80.0-100.0) H 09/28/24 05:21 MCH 34.5 pg (27.0-34.0) H 09/28/24 05:21 MCHC 33.9 g/dL (33.0-35.0) 09/28/24 05:21 RDW 15.3 % (11.6-16.5) 09/28/24 05:21 Plt Count 57 X10^3/uL (150.0-450.0) L 09/28/24 05:21 Plt Count Comment Decreased (ADEQUATE) 09/21/24 05:02 MPV 8.8 fL (7.4-11.0) 09/28/24 05:21 Neut % (Auto) 81.1 % (42.0-75.0) H 09/28/24 05:21 Lymph % (Auto) 12.5 % (21.0-51.0) L 09/28/24 05:21 [place] % (Auto) 4.6 % (0.0-13.0) 09/28/24 05:21 Eos % (Auto) 1.3 % (0.9-2.9) 09/28/24 05:21 Baso % (Auto) 0.5 % (0.2-1.0) 09/28/24 05:21 Neut # (Auto) 5.8 x10^3/uL (2.2-4.8) H 09/28/24 05:21 Lymph # (Auto) 0.9 X10^3/uL (1.3-2.9) L 09/28/24 05:21 [place] # (Auto) 0.3 x10^3/uL (0.3-0.8) 09/28/24 05:21 Eos # (Auto) 0.1 x10^3/uL (0.0-0.2) 09/28/24 05:21 Baso # (Auto) 0.0 X10^3/uL (0.0-0.1) 09/28/24 05:21 Absolute Nucleated RBC 0.1 /100WBC 09/28/24 05:21 Total Counted 100 09/21/24 05:02 Neutrophils % (Manual) 94 % (39-76) H 09/21/24 05:02 Band Neutrophils % 4 % (0-10) 09/15/24 04:50 Lymphocytes % (Manual) 5 % (13-43) L 09/21/24 05:02 Monocytes % (Manual) 1 % (4-9) L 09/21/24 05:02 Eosinophils % (Manual) 0 % (0-6) 09/21/24 05:02 Basophils % (Manual) 0 % (0-1) 09/21/24 05:02 Plt Morphology Comment Normal (NORMAL) 09/21/24 05:02 RBC Morphology Abnormal (NORMAL) 09/21/24 05:02 Macrocytosis Slight A 09/21/24 05:02 Target Cells Slight A 09/21/24 05:02 Schistocytes Slight A 09/21/24 05:02 Smear Path Review See scanned report 09/19/24 05:18 Sample Site Lr 09/25/24 05:00 ABG pH 7.470 (7.35-7.45) H 09/25/24 05:00 ABG pCO2 30.0 mmHg (35.0-45.0) L 09/25/24 05:00 ABG pO2 56.0 mmHg (80.0-100.0) L 09/25/24 05:00 ABG HCO3 21.8 mmol/L (22-26) L 09/25/24 05:00 ABG O2 Saturation 91.0 % (90-100) 09/25/24 05:00 ABG Base Excess -1.0 mmol/L (-2.0-2.0) 09/25/24 05:00 Ziyad Test Pos 09/25/24 05:00 A-a Gradient 135.0 mmHg 09/25/24 05:00 FiO2 32.0 09/25/24 05:00 Blood Gas Comments Griselda well sw 09/25/24 05:00 Sodium 141 mmol/L (136-145) 09/28/24 05:21 Corrected Sodium TNP 09/28/24 05:21 Potassium 4.0 mmol/L (3.5-5.1) 09/28/24 05:21 Chloride 107 mmol/L (98-107) 09/28/24 05:21 Carbon Dioxide 24.4 mmol/L (21-32) 09/28/24 05:21 BUN 22 mg/dL (7-18) H 09/28/24 05:21 Creatinine 1.08 mg/dL (0.70-1.30) 09/28/24 05:21 Est GFR (MDRD) Af Amer > 60 (>60) 09/28/24 05:21 Est GFR (MDRD) Non-Af > 60 (>60) 09/28/24 05:21 Glucose 104 mg/dL (65-99) H 09/28/24 05:21 Hemoglobin A1c 6.9 % 09/15/24 04:50 Lactic Acid 2.0 mmol/L (0.4-2.0) 09/13/24 20:58 Calcium 8.4 mg/dL (8.5-10.1) L 09/28/24 05:21 Corrected Calcium 9.0 mg/dL (8.5-10.1) 09/28/24 05:21 Phosphorus 3.4 mg/dL (2.6-4.7) 09/19/24 05:18 Magnesium 2.2 mg/dL (2.0-2.9) 09/27/24 05:30 Iron 62 ug/dL (50-175) 09/19/24 05:18 TIBC 107 ug/dL (250-450) L 09/19/24 05:18 Transferrin 71 mg/dL (202-364) L 09/19/24 05:18 Ferritin 4685 ng/mL (26-388) H 09/19/24 05:18 Total Bilirubin 1.00 mg/dL (0.2-1.0) 09/28/24 05:21 Direct Bilirubin 0.30 mg/dL (0-0.2) H 09/19/24 05:18 AST 29 Units/L (15-37) 09/28/24 05:21 ALT 58 Units/L (12-78) 09/28/24 05:21 Alkaline Phosphatase 83 Units/L (46-116) 09/28/24 05:21 C-Reactive Protein 18.10 mg/L (0-3.0) H 09/22/24 04:45 B-Natriuretic Peptide 227 pg/mL (0-79) H 09/26/24 04:53 Total Protein 6.5 g/dL (6.4-8.2) 09/28/24 05:21 Albumin 3.2 g/dL (3.4-5.0) L 09/28/24 05:21 Globulin 3.3 g/dL (2.5-4.5) 09/28/24 05:21 Albumin/Globulin Ratio 1.0 Ratio (1.1-2.1) L 09/28/24 05:21 Vitamin B12 1707 pg/mL (193-986) H 09/19/24 05:18 Folate 6.3 ng/mL (>8.6) L 09/19/24 05:18 Specimen Type Clean catch urine 09/13/24 19:29 Urine Color Yellow (YELLOW) 09/13/24 19:29 Urine Appearance Hazy (CLEAR) 09/13/24 19:29 Urine pH 6.0 (5.0 - 8.0) 09/13/24 19:29 Ur Specific [place] 1.020 (1.000-1.030) 09/13/24 19:29 Urine Protein 3+ (NEGATIVE) 09/13/24 19: Urine Glucose (UA) Negative (NEGATIVE) 09/13/24 19: Urine Ketones Negative (NEGATIVE) 09/13/24 19: Urine Blood 5+ (NEGATIVE) 09/13/24 19: Urine Nitrite Negative (NEGATIVE) 09/13/24 19: Urine Bilirubin Negative (NEGATIVE) 09/13/24 19:29 Urine Urobilinogen 2+ (NORMAL) 09/13/24 19:29 Ur Leukocyte Esterase Negative (NEGATIVE) 09/13/24 19:29 Urine RBC 0-2 /HPF (0-3) 09/13/24 19:29 Urine WBC 0-2 /HPF (0-5) 09/13/24 19:29 Ur Squamous Epith Cells Rare /HPF (NEGATIVE) 09/13/24 19:29 Amorphous Sediment 1+ /HPF (NEGATIVE) 09/13/24 19:29 Urine Bacteria Trace /HPF (NEGATIVE) 09/13/24 19:29 Granular Casts Moderate /LPF (NEGATIVE) 09/13/24 19:29 Ur Culture Indicated? No/not indicated 09/13/24 19: Stl Occult Blood (IFOB) Positive (NEGATIVE) A 09/27/24 07:35 Random Gentamicin 5.1 ug/mL 09/27/24 10:59 SARS-CoV-2 (PCR) Negative (NEGATIVE) 09/13/24 14:56 Influenza Type A (PCR) Negative (NEGATIVE) 09/13/24 14:56 Influenza Type B (PCR) Negative (NEGATIVE) 09/13/24 14:56 RSV (PCR) Negative (NEGATIVE) 09/13/24 14:56 Resp Viral Panel (PCR) See scanned report 09/13/24 20:10 Blood Type O POSITIVE 09/19/24 09:40 Antibody Screen Negative 09/19/24 09:40 Crossmatch See Detail 09/19/24 09:40 Radiology Reviewed: Yes Plan (1) Right lower lobe pneumonia: Status: Acute Qualifiers: Pneumonia type: due to unspecified organism Qualified Code(s): J18.9 - Pneumonia, unspecified organism Plan: 1. Continue IV cefepime, azithromycin, gentamicin and fluconazole. 2. Check daily chest x-rays. (2) Atrial fibrillation with RVR: Status: Resolved Plan: 1. Continue Eliquis at this time. 2. Continue oral Cardizem CD 240 mg 1 p.o. daily 3. Continue metoprolol ER 100 mg 1 p.o. daily (3) Dehydration: Status: Resolved Plan: Continue IV normal saline hydration at this time. (4) Hyponatremia: Status: Resolved Plan: Continue hydration therapy with normal saline IV fluid. (5) Essential hypertension: Status: Acute Plan: Continue: 1. Decrease Cardizem Cardizem 360 mg 1 p.o. daily to 240 mg 1 p.o. daily since his heart rate is in the 60s and I will increase his metoprolol ER for better antihypertensive control. 2. Continue telmisartan 80 mg 1 p.o. daily 3. Increase metoprolol ER from 50 mg p.o. daily to 100 mg 1 p.o. daily. 4. Continue to monitor blood pressure and adjust antihypertensives accordingly. (6) Thrombocytopenia: Status: Acute Plan: 1. Aim for discharge on Tuesday (today is Tuesday). 2. Ensure patient has someone to stay with him at home (girlfriend confirmed). 3. Assess need for home equipment (e.g., bedside potty). 4. Obtain recent labs from [facility] to check to see if pt. had recent thrombocytopenia. 5. Investigate cause of thrombocytopenia, considering potential autoimmune destruction or hypersplenism. 6. Consider test for autosplenectomy (specific test to be researched). 7. Continue monitoring platelet count, hemoglobin, and bilirubin levels. 8. Follow up on chest x-ray findings of right upper lung pneumonia. 9. Encourage increased mobility and improved nutrition intake. (7) Elevated LFTs: Status: Resolved Plan: Continue daily monitoring to make sure the patient's LFTs are not changing. (8) Hypoalbuminemia: Status: Acute Plan: Continue Megace 40 mg p.o. twice daily was started to help get the patient's protein and albumin levels increased. We will plan on giving the patient IV albumin again today but after today we will plan on discontinuing it. (9) Elevated brain natriuretic peptide (BNP) level: Status: Acute Plan: Repeat BMP again tomorrow as well as chest x-ray. We will diurese if needed. (10) Glaucoma: Status: Acute Plan: Continue dorzolamidetimolol ophthalmic drops. (11) Hyperglycemia: Status: Acute Plan: Check hemoglobin A1c for tomorrow morning. (12) History of malignant neoplasm of prostate: Status: Acute (13) Hx of prostatectomy: Status: Acute (14) Hyperbilirubinemia: Status: Resolved Narrative Support Text: The patient has a normal bilirubin level this morning. Plan: Follow daily total bilirubin levels.
[2024-09-28] MEDS: GENTAMICIN INJ 480 MG in NS 100 ML IV 100 ML IV SCH (22:26)
[2024-09-29 05:40] LABS: EOSINOPHILS # (AUTO) 0.1 x10^3/uL (0.0-0.2); MONOCYTES # (AUTO) 0.4 x10^3/uL (0.3-0.8)
[2024-09-29 05:45] LABS: BASOPHILS % (AUTO) 0.4 % (0.2-1.0); EOSINOPHILS % (AUTO) 1.1 % (0.9-2.9); HEMATOCRIT 24.9 % (42.0-54.0); HEMOGLOBIN 8.3 g/dL (13.5-18.0); LYMPHOCYTES % (AUTO) 14.8 % (21.0-51.0); MEAN CORPUSCULAR HEMOGLOBIN 34.2 pg (27.0-34.0); MEAN CORPUSCULAR HGB CONC 33.6 g/dL (33.0-35.0); MEAN CORPUSCULAR VOLUME 101.8 fL (80.0-100.0); MEAN PLATELET VOLUME 9.3 fL (7.4-11.0); NEUTROPHILS % (AUTO) 77.7 % (42.0-75.0); PLATELET COUNT 36 X10^3/uL (150.0-450.0); RED BLOOD COUNT 2.44 X10^6/uL (4.7-6.0); RED CELL DISTRIBUTION WIDTH 15.4 % (11.6-16.5); WHITE BLOOD COUNT 6.5 X10^3/uL (3.6-10.0)
[2024-09-29 05:47] LABS: ALANINE AMINOTRANSFERASE 56 Units/L (12-78); ALKALINE PHOSPHATASE 79 Units/L (46-116); ASPARTATE AMINO TRANSFERASE 26 Units/L (15-37); BLOOD UREA NITROGEN 20 mg/dL (7-18); CALCIUM 8.2 mg/dL (8.5-10.1); CHLORIDE 106 mmol/L (98-107); CREATININE 1.04 mg/dL (0.70-1.30); GLUCOSE 106 mg/dL (65-99); POTASSIUM 4.2 mmol/L (3.5-5.1); SODIUM 141 mmol/L (136-145); TOTAL PROTEIN 6.3 g/dL (6.4-8.2); eGFR NON BLACK RACES > 60 (>60)
[2024-09-29 06:24] LABS: PLATELET MORPHOLOGY COMMENT NORMAL (NORMAL)
--- NOTE | 2024-09-29 07:07 | RAD ---
EXAM:CHEST, 1 VIEWHISTORY:Pneumonia;COMPARISON:Prior study or studies were utilized for comparison during interpretation with the most relevant dated yesterdayTECHNIQUE:CHEST, 1 VIEWFINDINGS:Chest:Lines and tubes: NoneMediastinum: Cardiac and mediastinal shadow is within normal limits for size and contour.Pulmonary vessels: No pulmonary vascular congestion.Lung banda: Bilateral airspace opacities are noted, slightly worsened from 1 day priorPleura: No effusion. No pneumothorax.Bones and soft tissues: No acute osseous or soft tissue abnormality.IMPRESSION:1. Slight interval worsening of pneumoniaTHIS IS AN ELECTRONICALLY VERIFIED FINAL [id number]/29/2024 7:04 AM - Electronically signed by Drew Cosby MD
[2024-09-29] MEDS: PHARMACY COMMENT IV NR (12:04)
--- NOTE | 2024-09-29 18:01 | PCM.PROG ---
Progress Note Progress Note for Day of Date of Exam: 09/29/24 Subjective Subjective: The patient appears to be doing significantly better this morning, showing notable improvement since yesterday. His appetite seems to be improving, and he reports feeling much better. Respiratory sounds have improved. The patient mentioned that secretions are breaking loose, which is a positive sign. A chest x-ray was performed this morning. While the report indicates bilateral airspace opacities slightly worsened from one day prior, I disagree with this assessment based on the patient's clinical improvement. The left side of the chest had cleared a few days ago. Overall, the patient's clinical presentation shows marked improvement, with better respiratory function and general well-being. Past Medical Family Social History Past Med/Fam/Surg Hx: No changes since H&P Allergies: Allergies No Known Allergies Allergy (Verified 09/13/24 14:44) Review of Systems ROS: No change since H&P Vital Signs and I&O's Vital Signs: Vital Signs Temperature 98.0 F Temperature 97.9 F Pulse Rate 67 Pulse Rate 68 Pulse Rate 81 Pulse Rate 72 Pulse Rate 76 Pulse Rate 76 Pulse Rate 65 Respiratory Rate 13 Respiratory Rate 17 Respiratory Rate 21 Respiratory Rate 19 Respiratory Rate 23 Respiratory Rate 15 Respiratory Rate 14 Blood Pressure 118/62 Blood Pressure 110/59 Blood Pressure 122/67 Blood Pressure 121/68 Blood Pressure 119/65 Blood Pressure 128/64 O2 Sat by Pulse Oximetry 100 O2 Sat by Pulse Oximetry 100 O2 Sat by Pulse Oximetry 100 O2 Sat by Pulse Oximetry 100 O2 Sat by Pulse Oximetry 100 O2 Sat by Pulse Oximetry 100 O2 Sat by Pulse Oximetry 100 Intake and Output: Intake & Output 09/27/24 09/28/24 09/29/24 09/30/24 11:59 11:59 11:59 11:59 Intake Total 1736 / 1736 2399 / 2399 2258 / 2258 1180 / 1180 Output Total 1425 / 1425 1725 / 1725 1950 / 1950 700 / 700 Balance 311 / 311 674 / 674 308 / 308 480 / 480 Physical Exam Oriented: Normal, Time, Person and Place Eyes: Normal Nose: Normal Respiratory: Generalized and Rhonchi Cardiovascular: Normal Auscultation: Bowel Sounds: Normal Tenderness: Normal Skin: Decreased Turgur Musculoskeletal: Normal Psychiatric: Normal Mood Description: Calm Affect: Normal Speech Pattern: Appropriate and Unclear Laboratory and Diagnostics 09/29/24 05:11 09/29/24 05:11 Labs: 09/14/24 21:40 Blood Blood Culture - Final 09/14/24 21:30 Blood Blood Culture - Final 09/18/24 09:27 Sputum - Expectorated Sputum Sputum Culture - Preliminary 09/18/24 09:27 Sputum - Expectorated Sputum - Final 09/13/24 17:17 Blood Blood Culture - Final 09/13/24 17:08 Blood Blood Culture - Final Laboratory WBC 6.5 X10^3/uL (3.6-10.0) 09/29/24 05:11 RBC 2.44 X10^6/uL (4.7-6.0) L 09/29/24 05:11 Hgb 8.3 g/dL (13.5-18.0) L 09/29/24 05:11 Hct 24.9 % (42.0-54.0) L 09/29/24 05:11 MCV 101.8 fL (80.0-100.0) H 09/29/24 05:11 MCH 34.2 pg (27.0-34.0) H 09/29/24 05:11 MCHC 33.6 g/dL (33.0-35.0) 09/29/24 05:11 RDW 15.4 % (11.6-16.5) 09/29/24 05:11 Plt Count 36 X10^3/uL (150.0-450.0) L 09/29/24 05:11 Plt Count Comment Decreased (ADEQUATE) 09/29/24 05:11 MPV 9.3 fL (7.4-11.0) 09/29/24 05:11 Neut % (Auto) 77.7 % (42.0-75.0) H 09/29/24 05:11 Lymph % (Auto) 14.8 % (21.0-51.0) L 09/29/24 05:11 [place] % (Auto) 6.0 % (0.0-13.0) 09/29/24 05:11 Eos % (Auto) 1.1 % (0.9-2.9) 09/29/24 05:11 Baso % (Auto) 0.4 % (0.2-1.0) 09/29/24 05:11 Neut # (Auto) 5.0 x10^3/uL (2.2-4.8) H 09/29/24 05:11 Lymph # (Auto) 1.0 X10^3/uL (1.3-2.9) L 09/29/24 05:11 [place] # (Auto) 0.4 x10^3/uL (0.3-0.8) 09/29/24 05:11 Eos # (Auto) 0.1 x10^3/uL (0.0-0.2) 09/29/24 05:11 Baso # (Auto) 0.0 X10^3/uL (0.0-0.1) 09/29/24 05:11 Absolute Nucleated RBC 0.1 /100WBC 09/29/24 05:11 Total Counted 100 09/21/24 05:02 Neutrophils % (Manual) 94 % (39-76) H 09/21/24 05:02 Band Neutrophils % 4 % (0-10) 09/15/24 04:50 Lymphocytes % (Manual) 5 % (13-43) L 09/21/24 05:02 Monocytes % (Manual) 1 % (4-9) L 09/21/24 05:02 Eosinophils % (Manual) 0 % (0-6) 09/21/24 05:02 Basophils % (Manual) 0 % (0-1) 09/21/24 05:02 Plt Morphology Comment Normal (NORMAL) 09/29/24 05:11 RBC Morphology Abnormal (NORMAL) 09/29/24 05:11 Macrocytosis Slight A 09/29/24 05:11 Target Cells Slight A 09/21/24 05:02 Schistocytes Slight A 09/21/24 05:02 Smear Path Review See scanned report 09/19/24 05:18 Sample Site Lr 09/25/24 05:00 ABG pH 7.470 (7.35-7.45) H 09/25/24 05:00 ABG pCO2 30.0 mmHg (35.0-45.0) L 09/25/24 05:00 ABG pO2 56.0 mmHg (80.0-100.0) L 09/25/24 05:00 ABG HCO3 21.8 mmol/L (22-26) L 09/25/24 05:00 ABG O2 Saturation 91.0 % (90-100) 09/25/24 05:00 ABG Base Excess -1.0 mmol/L (-2.0-2.0) 09/25/24 05:00 Ziyad Test Pos 09/25/24 05:00 A-a Gradient 135.0 mmHg 09/25/24 05:00 FiO2 32.0 09/25/24 05:00 Blood Gas Comments Griselda well sw 09/25/24 05:00 Sodium 141 mmol/L (136-145) 09/29/24 05:11 Corrected Sodium TNP 09/29/24 05:11 Potassium 4.2 mmol/L (3.5-5.1) 09/29/24 05:11 Chloride 106 mmol/L (98-107) 09/29/24 05:11 Carbon Dioxide 25.0 mmol/L (21-32) 09/29/24 05:11 BUN 20 mg/dL (7-18) H 09/29/24 05:11 Creatinine 1.04 mg/dL (0.70-1.30) 09/29/24 05:11 Est GFR (MDRD) Af Amer > 60 (>60) 09/29/24 05:11 Est GFR (MDRD) Non-Af > 60 (>60) 09/29/24 05:11 Glucose 106 mg/dL (65-99) H 09/29/24 05:11 Hemoglobin A1c 6.9 % 09/15/24 04:50 Lactic Acid 2.0 mmol/L (0.4-2.0) 09/13/24 20:58 Calcium 8.2 mg/dL (8.5-10.1) L 09/29/24 05:11 Corrected Calcium 9.0 mg/dL (8.5-10.1) 09/29/24 05:11 Phosphorus 3.4 mg/dL (2.6-4.7) 09/19/24 05:18 Magnesium 2.2 mg/dL (2.0-2.9) 09/27/24 05:30 Iron 62 ug/dL (50-175) 09/19/24 05:18 TIBC 107 ug/dL (250-450) L 09/19/24 05:18 Transferrin 71 mg/dL (202-364) L 09/19/24 05:18 Ferritin 4685 ng/mL (26-388) H 09/19/24 05:18 Total Bilirubin 0.80 mg/dL (0.2-1.0) 09/29/24 05:11 Direct Bilirubin 0.30 mg/dL (0-0.2) H 09/19/24 05:18 AST 26 Units/L (15-37) 09/29/24 05:11 ALT 56 Units/L (12-78) 09/29/24 05:11 Alkaline Phosphatase 79 Units/L (46-116) 09/29/24 05:11 C-Reactive Protein 18.10 mg/L (0-3.0) H 09/22/24 04:45 B-Natriuretic Peptide 227 pg/mL (0-79) H 09/26/24 04:53 Total Protein 6.3 g/dL (6.4-8.2) L 09/29/24 05:11 Albumin 3.0 g/dL (3.4-5.0) L 09/29/24 05:11 Globulin 3.3 g/dL (2.5-4.5) 09/29/24 05:11 Albumin/Globulin Ratio 0.9 Ratio (1.1-2.1) L 09/29/24 05:11 Vitamin B12 1707 pg/mL (193-986) H 09/19/24 05:18 Folate 6.3 ng/mL (>8.6) L 09/19/24 05:18 Specimen Type Clean catch urine 09/13/24 19:29 Urine Color Yellow (YELLOW) 09/13/24 19: Urine Appearance Hazy (CLEAR) 09/13/24 19: Urine pH 6.0 (5.0 - 8.0) 09/13/24 19:29 Ur Specific [place] 1.020 (1.000-1.030) 09/13/24 19:29 Urine Protein 3+ (NEGATIVE) 09/13/24 19: Urine Glucose (UA) Negative (NEGATIVE) 09/13/24 19: Urine Ketones Negative (NEGATIVE) 09/13/24 19: Urine Blood 5+ (NEGATIVE) 09/13/24 19: Urine Nitrite Negative (NEGATIVE) 09/13/24 19: Urine Bilirubin Negative (NEGATIVE) 09/13/24 19: Urine Urobilinogen 2+ (NORMAL) 09/13/24 19:29 Ur Leukocyte Esterase Negative (NEGATIVE) 09/13/24 19:29 Urine RBC 0-2 /HPF (0-3) 09/13/24 19:29 Urine WBC 0-2 /HPF (0-5) 09/13/24 19:29 Ur Squamous Epith Cells Rare /HPF (NEGATIVE) 09/13/24 19:29 Amorphous Sediment 1+ /HPF (NEGATIVE) 09/13/24 19:29 Urine Bacteria Trace /HPF (NEGATIVE) 09/13/24 19:29 Granular Casts Moderate /LPF (NEGATIVE) 09/13/24 19:29 Ur Culture Indicated? No/not indicated 09/13/24 19:29 Stl Occult Blood (IFOB) Positive (NEGATIVE) A 09/27/24 07:35 Random Gentamicin 3.7 ug/mL 09/29/24 11:57 SARS-CoV-2 (PCR) Negative (NEGATIVE) 09/13/24 14:56 Influenza Type A (PCR) Negative (NEGATIVE) 09/13/24 14:56 Influenza Type B (PCR) Negative (NEGATIVE) 09/13/24 14:56 RSV (PCR) Negative (NEGATIVE) 09/13/24 14:56 Resp Viral Panel (PCR) See scanned report 09/13/24 20:10 Blood Type O POSITIVE 09/19/24 09:40 Antibody Screen Negative 09/19/24 09:40 Crossmatch See Detail 09/19/24 09:40 Radiology Reviewed: Yes Plan (1) Right lower lobe pneumonia: Status: Acute Qualifiers: Pneumonia type: due to unspecified organism Qualified Code(s): J18.9 - Pneumonia, unspecified organism Plan: 1. Continue IV cefepime, azithromycin, gentamicin and fluconazole. 2. Check daily chest x-rays. 3.Plan/Recommendations I plan to discharge the patient tomorrow if his condition continues to improve. We discussed home health care options for rehabilitation. The patient prefers home health care services, which will include physical therapy at home. I emphasized the importance of adhering to the rehabilitation program to prevent readmission. The patient's family member (Anamaria) will assist in ensuring compliance with the rehabilitation plan. (2) Atrial fibrillation with RVR: Status: Resolved Plan: 1. Continue Eliquis at this time. 2. Continue oral Cardizem CD 240 mg 1 p.o. daily 3. Continue metoprolol ER 100 mg 1 p.o. daily (3) Dehydration: Status: Resolved Plan: Continue IV normal saline hydration at this time. (4) Hyponatremia: Status: Resolved Plan: Continue hydration therapy with normal saline IV fluid. (5) Essential hypertension: Status: Acute Plan: Continue: 1. Decrease Cardizem Cardizem 360 mg 1 p.o. daily to 240 mg 1 p.o. daily since his heart rate is in the 60s and I will increase his metoprolol ER for better antihypertensive control. 2. Continue telmisartan 80 mg 1 p.o. daily 3. Increase metoprolol ER from 50 mg p.o. daily to 100 mg 1 p.o. daily. 4. Continue to monitor blood pressure and adjust antihypertensives accordingly. (6) Thrombocytopenia: Status: Acute Plan: 1. Aim for discharge on Tuesday (today is Tuesday). 2. Ensure patient has someone to stay with him at home (girlfriend confirmed). 3. Assess need for home equipment (e.g., bedside potty). 4. Obtain recent labs from [facility] to check to see if pt. had recent thrombocytopenia. 5. Investigate cause of thrombocytopenia, considering potential autoimmune destruction or hypersplenism. 6. Consider test for autosplenectomy (specific test to be researched). 7. Continue monitoring platelet count, hemoglobin, and bilirubin levels. 8. Follow up on chest x-ray findings of right upper lung pneumonia. 9. Encourage increased mobility and improved nutrition intake. (7) Elevated LFTs: Status: Resolved Plan: Continue daily monitoring to make sure the patient's LFTs are not changing. (8) Hypoalbuminemia: Status: Acute Plan: Continue Megace 40 mg p.o. twice daily was started to help get the patient's protein and albumin levels increased. We will plan on giving the patient IV albumin again today but after today we will plan on discontinuing it. (9) Elevated brain natriuretic peptide (BNP) level: Status: Acute Plan: Repeat BMP again tomorrow as well as chest x-ray. We will diurese if needed. (10) Glaucoma: Status: Acute Plan: Continue dorzolamidetimolol ophthalmic drops. (11) Hyperglycemia: Status: Acute Plan: Check hemoglobin A1c for tomorrow morning. (12) History of malignant neoplasm of prostate: Status: Acute (13) Hx of prostatectomy: Status: Acute Plan: Plan/Recommendations Plan to continue monitoring Rajesh's hemoglobin and platelet levels. We will transfuse the patient with 1 unit of packed red blood cells today and premedicating with Tylenol and Benadryl. We will check Vitamin B12 and folate levels to rule out deficiencies contributing to macrocytosis. Rajesh's nutritional intake will be emphasized to assist in infection recovery and strength. Encourage him to sit up in a chair today as part of his recovery. Protonix will be increased to 40 mg IV BID due to changes in his hemoglobin levels. Since the patient is still not eating a lot I will start him on Megace 40 mg twice daily. (14) Hyperbilirubinemia: Status: Resolved Plan: Follow daily total bilirubin levels.
[2024-09-30 05:38] LABS: BASOPHILS % (AUTO) 0.3 % (0.2-1.0); EOSINOPHILS # (AUTO) 0.1 x10^3/uL (0.0-0.2); EOSINOPHILS % (AUTO) 1.3 % (0.9-2.9); HEMATOCRIT 28.3 % (42.0-54.0); HEMOGLOBIN 9.5 g/dL (13.5-18.0); LYMPHOCYTES # (AUTO) 1.3 X10^3/uL (1.3-2.9); LYMPHOCYTES % (AUTO) 19.7 % (21.0-51.0); MEAN CORPUSCULAR HEMOGLOBIN 34.5 pg (27.0-34.0); MEAN CORPUSCULAR HGB CONC 33.7 g/dL (33.0-35.0); MEAN CORPUSCULAR VOLUME 102.6 fL (80.0-100.0); MONOCYTES # (AUTO) 0.5 x10^3/uL (0.3-0.8); MONOCYTES % (AUTO) 6.7 % (0.0-13.0); NEUTROPHILS # (AUTO) 4.9 x10^3/uL (2.2-4.8); PLATELET COUNT 51 X10^3/uL (150.0-450.0); RED BLOOD COUNT 2.76 X10^6/uL (4.7-6.0); RED CELL DISTRIBUTION WIDTH 15.2 % (11.6-16.5); WHITE BLOOD COUNT 6.8 X10^3/uL (3.6-10.0)
[2024-09-30 05:47] LABS: ALANINE AMINOTRANSFERASE 64 Units/L (12-78); ALKALINE PHOSPHATASE 88 Units/L (46-116); ASPARTATE AMINO TRANSFERASE 31 Units/L (15-37); BLOOD UREA NITROGEN 17 mg/dL (7-18); CALCIUM 8.7 mg/dL (8.5-10.1); CHLORIDE 106 mmol/L (98-107); COR CA(FOR HYPOALB) 9.5 mg/dL (8.5-10.1); CREATININE 1.09 mg/dL (0.70-1.30); GLUCOSE 102 mg/dL (65-99); POTASSIUM 4.3 mmol/L (3.5-5.1); SODIUM 139 mmol/L (136-145); TOTAL PROTEIN 6.8 g/dL (6.4-8.2); eGFR NON BLACK RACES > 60 (>60)
[2024-09-30 06:53] LABS: PLATELET MORPHOLOGY COMMENT NORMAL (NORMAL)
--- NOTE | 2024-09-30 07:34 | RAD ---
EXAM:AP chestHISTORY:PneumoniaCOMPARISON: [id number]:Stable/normal heart size with clear left chest. Similar extent and distribution of right upper lobe consolidation.IMPRESSION:No change in appearance of the pneumonia.THIS IS AN ELECTRONICALLY VERIFIED FINAL [id number]/30/2024 7:31 AM - Electronically signed by Babar Robertson MD
[2024-09-30] MEDS: DIFLUCAN PO ONE (14:46)
--- NOTE | 2024-09-30 20:19 | PCM.PROG ---
Progress Note Progress Note for Day of Date of Exam: 09/30/24 Subjective Subjective: The patient reports feeling much better today and is wanting to go home. I told him that we will need to wait until tomorrow when the pharmacy and home health care store is open to make sure that we can get his home O2 and the medications that he needs. The patient is okay with that. Clinical observations: The patient was observed sitting up in a chair, which is a positive sign. His appetite has improved, which I noted as a good indicator of recovery. Breathing appears to be better, with improved oxygen levels. The patient's lung sounds have significantly improved, showing a big improvement. His color looks better. A chest x-ray showed no change in appearance, with a few findings noted in the right lung. The patient's overall condition had markedly improved from admission when oxygen levels were in the 80s. Current oxygen saturation is 100% on 2 L nasal cannula. Past Medical Family Social History Past Med/Fam/Surg Hx: No changes since H&P Allergies: Allergies No Known Allergies Allergy (Verified 09/13/24 14:44) Review of Systems ROS: No change since H&P Vital Signs and I&O's Vital Signs: Vital Signs Temperature 97.6 F Pulse Rate 86 Pulse Rate 95 Pulse Rate 101 Pulse Rate 100 Respiratory Rate 36 Respiratory Rate 21 Respiratory Rate 21 Respiratory Rate 24 Blood Pressure 117/66 Blood Pressure 107/64 Blood Pressure 107/64 Blood Pressure 107/65 O2 Sat by Pulse Oximetry 99 O2 Sat by Pulse Oximetry 99 O2 Sat by Pulse Oximetry 100 O2 Sat by Pulse Oximetry 99 Intake and Output: Intake & Output 09/28/24 09/29/24 09/30/24 10/01/24 11:59 11:59 11:59 11:59 Intake Total 2399 / 2399 2258 / 2258 1688 / 1688 1175 / 1175 Output Total 1725 / 1725 1950 / 1950 1800 / 1800 300 / 300 Balance 674 / 674 308 / 308 -112 / -112 875 / 875 Physical Exam Oriented: Normal, Time, Person and Place Eyes: Normal Nose: Normal Respiratory: Generalized and Rhonchi (Patient has very mild rhonchi today compared to previous days.) Cardiovascular: Normal Auscultation: Bowel Sounds: Normal Tenderness: Normal Skin: Decreased Turgur Musculoskeletal: Normal Psychiatric: Normal Mood Description: Calm Affect: Normal Speech Pattern: Appropriate and Unclear Laboratory and Diagnostics 09/30/24 04:25 09/30/24 04:25 Labs: 09/14/24 21:40 Blood Blood Culture - Final 09/14/24 21:30 Blood Blood Culture - Final 09/18/24 09:27 Sputum - Expectorated Sputum Sputum Culture - Preliminary 09/18/24 09:27 Sputum - Expectorated Sputum - Final 09/13/24 17:17 Blood Blood Culture - Final 09/13/24 17:08 Blood Blood Culture - Final Laboratory WBC 6.8 X10^3/uL (3.6-10.0) 09/30/24 04:25 RBC 2.76 X10^6/uL (4.7-6.0) L 09/30/24 04:25 Hgb 9.5 g/dL (13.5-18.0) L 09/30/24 04:25 Hct 28.3 % (42.0-54.0) L 09/30/24 04:25 MCV 102.6 fL (80.0-100.0) H 09/30/24 04:25 MCH 34.5 pg (27.0-34.0) H 09/30/24 04:25 MCHC 33.7 g/dL (33.0-35.0) 09/30/24 04:25 RDW 15.2 % (11.6-16.5) 09/30/24 04:25 Plt Count 51 X10^3/uL (150.0-450.0) L 09/30/24 04:25 Plt Count Comment Decreased (ADEQUATE) 09/30/24 04:25 MPV 9.0 fL (7.4-11.0) 09/30/24 04:25 Neut % (Auto) 72.0 % (42.0-75.0) 09/30/24 04:25 Lymph % (Auto) 19.7 % (21.0-51.0) L 09/30/24 04:25 [place] % (Auto) 6.7 % (0.0-13.0) 09/30/24 04:25 Eos % (Auto) 1.3 % (0.9-2.9) 09/30/24 04:25 Baso % (Auto) 0.3 % (0.2-1.0) 09/30/24 04:25 Neut # (Auto) 4.9 x10^3/uL (2.2-4.8) H 09/30/24 04:25 Lymph # (Auto) 1.3 X10^3/uL (1.3-2.9) 09/30/24 04:25 [place] # (Auto) 0.5 x10^3/uL (0.3-0.8) 09/30/24 04:25 Eos # (Auto) 0.1 x10^3/uL (0.0-0.2) 09/30/24 04:25 Baso # (Auto) 0.0 X10^3/uL (0.0-0.1) 09/30/24 04:25 Absolute Nucleated RBC 0.1 /100WBC 09/30/24 04:25 Total Counted 100 09/21/24 05:02 Neutrophils % (Manual) 94 % (39-76) H 09/21/24 05:02 Band Neutrophils % 4 % (0-10) 09/15/24 04:50 Lymphocytes % (Manual) 5 % (13-43) L 09/21/24 05:02 Monocytes % (Manual) 1 % (4-9) L 09/21/24 05:02 Eosinophils % (Manual) 0 % (0-6) 09/21/24 05:02 Basophils % (Manual) 0 % (0-1) 09/21/24 05:02 Plt Morphology Comment Normal (NORMAL) 09/30/24 04:25 RBC Morphology Abnormal (NORMAL) 09/30/24 04:25 Macrocytosis Slight A 09/30/24 04:25 Target Cells Slight A 09/21/24 05:02 Schistocytes Slight A 09/21/24 05:02 Smear Path Review See scanned report 09/19/24 05:18 Sample Site Lr 09/25/24 05:00 ABG pH 7.470 (7.35-7.45) H 09/25/24 05:00 ABG pCO2 30.0 mmHg (35.0-45.0) L 09/25/24 05:00 ABG pO2 56.0 mmHg (80.0-100.0) L 09/25/24 05:00 ABG HCO3 21.8 mmol/L (22-26) L 09/25/24 05:00 ABG O2 Saturation 91.0 % (90-100) 09/25/24 05:00 ABG Base Excess -1.0 mmol/L (-2.0-2.0) 09/25/24 05:00 Ziyad Test Pos 09/25/24 05:00 A-a Gradient 135.0 mmHg 09/25/24 05:00 FiO2 32.0 09/25/24 05:00 Blood Gas Comments Griselda well sw 09/25/24 05:00 Sodium 139 mmol/L (136-145) 09/30/24 04:25 Corrected Sodium TNP 09/30/24 04:25 Potassium 4.3 mmol/L (3.5-5.1) 09/30/24 04:25 Chloride 106 mmol/L (98-107) 09/30/24 04:25 Carbon Dioxide 23.0 mmol/L (21-32) 09/30/24 04:25 BUN 17 mg/dL (7-18) 09/30/24 04:25 Creatinine 1.09 mg/dL (0.70-1.30) 09/30/24 04:25 Est GFR (MDRD) Af Amer > 60 (>60) 09/30/24 04:25 Est GFR (MDRD) Non-Af > 60 (>60) 09/30/24 04:25 Glucose 102 mg/dL (65-99) H 09/30/24 04:25 Hemoglobin A1c 6.9 % 09/15/24 04:50 Lactic Acid 2.0 mmol/L (0.4-2.0) 09/13/24 20:58 Calcium 8.7 mg/dL (8.5-10.1) 09/30/24 04:25 Corrected Calcium 9.5 mg/dL (8.5-10.1) 09/30/24 04:25 Phosphorus 3.4 mg/dL (2.6-4.7) 09/19/24 05:18 Magnesium 2.2 mg/dL (2.0-2.9) 09/27/24 05:30 Iron 62 ug/dL (50-175) 09/19/24 05:18 TIBC 107 ug/dL (250-450) L 09/19/24 05:18 Transferrin 71 mg/dL (202-364) L 09/19/24 05:18 Ferritin 4685 ng/mL (26-388) H 09/19/24 05:18 Total Bilirubin 0.80 mg/dL (0.2-1.0) 09/30/24 04:25 Direct Bilirubin 0.30 mg/dL (0-0.2) H 09/19/24 05:18 AST 31 Units/L (15-37) 09/30/24 04:25 ALT 64 Units/L (12-78) 09/30/24 04:25 Alkaline Phosphatase 88 Units/L (46-116) 09/30/24 04:25 C-Reactive Protein 18.10 mg/L (0-3.0) H 09/22/24 04:45 B-Natriuretic Peptide 227 pg/mL (0-79) H 09/26/24 04:53 Total Protein 6.8 g/dL (6.4-8.2) 09/30/24 04:25 Albumin 3.0 g/dL (3.4-5.0) L 09/30/24 04:25 Globulin 3.8 g/dL (2.5-4.5) 09/30/24 04:25 Albumin/Globulin Ratio 0.8 Ratio (1.1-2.1) L 09/30/24 04:25 Vitamin B12 1707 pg/mL (193-986) H 09/19/24 05:18 Folate 6.3 ng/mL (>8.6) L 09/19/24 05:18 Specimen Type Clean catch urine 09/13/24 19:29 Urine Color Yellow (YELLOW) 09/13/24 19:29 Urine Appearance Hazy (CLEAR) 09/13/24 19: Urine pH 6.0 (5.0 - 8.0) 09/13/24 19: Ur Specific [place] 1.020 (1.000-1.030) 09/13/24 19:29 Urine Protein 3+ (NEGATIVE) 09/13/24 19: Urine Glucose (UA) Negative (NEGATIVE) 09/13/24 19: Urine Ketones Negative (NEGATIVE) 09/13/24 19: Urine Blood 5+ (NEGATIVE) 09/13/24 19: Urine Nitrite Negative (NEGATIVE) 09/13/24 19: Urine Bilirubin Negative (NEGATIVE) 09/13/24 19: Urine Urobilinogen 2+ (NORMAL) 09/13/24 19:29 Ur Leukocyte Esterase Negative (NEGATIVE) 09/13/24 19:29 Urine RBC 0-2 /HPF (0-3) 09/13/24 19:29 Urine WBC 0-2 /HPF (0-5) 09/13/24 19:29 Ur Squamous Epith Cells Rare /HPF (NEGATIVE) 09/13/24 19:29 Amorphous Sediment 1+ /HPF (NEGATIVE) 09/13/24 19:29 Urine Bacteria Trace /HPF (NEGATIVE) 09/13/24 19:29 Granular Casts Moderate /LPF (NEGATIVE) 09/13/24 19:29 Ur Culture Indicated? No/not indicated 09/13/24 19:29 Stl Occult Blood (IFOB) Positive (NEGATIVE) A 09/27/24 07:35 Random Gentamicin 3.7 ug/mL 09/29/24 11:57 SARS-CoV-2 (PCR) Negative (NEGATIVE) 09/13/24 14:56 Influenza Type A (PCR) Negative (NEGATIVE) 09/13/24 14:56 Influenza Type B (PCR) Negative (NEGATIVE) 09/13/24 14:56 RSV (PCR) Negative (NEGATIVE) 09/13/24 14:56 Resp Viral Panel (PCR) See scanned report 09/13/24 20:10 Blood Type O POSITIVE 09/19/24 09:40 Antibody Screen Negative 09/19/24 09:40 Crossmatch See Detail 09/19/24 09:40 Radiology Reviewed: Yes Plan (1) Right lower lobe pneumonia: Status: Acute Qualifiers: Pneumonia type: due to unspecified organism Qualified Code(s): J18.9 - Pneumonia, unspecified organism Plan: I plan to experiment with removing the patient's supplemental oxygen today to assess his capability without it. We will monitor his oxygen levels closely. Due to it being Tuesday, we may need to wait until tomorrow for certain services. I intend to discharge the patient tomorrow morning before lunch, pending his condition. I will return first thing in the morning to finalize discharge plans. Continue IV cefepime, azithromycin, gentamicin and fluconazole. (2) Atrial fibrillation with RVR: Status: Resolved Plan: 1. Continue Eliquis at this time. 2. Continue oral Cardizem CD 240 mg 1 p.o. daily 3. Continue metoprolol ER 100 mg 1 p.o. daily (3) Dehydration: Status: Resolved Plan: Continue IV normal saline hydration at this time. (4) Hyponatremia: Status: Resolved Plan: Continue hydration therapy with normal saline IV fluid. (5) Essential hypertension: Status: Acute Plan: Continue: 1. Decrease Cardizem Cardizem 360 mg 1 p.o. daily to 240 mg 1 p.o. daily since his heart rate is in the 60s and I will increase his metoprolol ER for better antihypertensive control. 2. Continue telmisartan 80 mg 1 p.o. daily 3. Increase metoprolol ER from 50 mg p.o. daily to 100 mg 1 p.o. daily. 4. Continue to monitor blood pressure and adjust antihypertensives accordingly. (6) Thrombocytopenia: Status: Acute Narrative Support Text: For the first time since admission a few weeks ago. He is currently 51,000 this morning illness platelet count. Plan: 1. Aim for discharge on Tuesday (today is Tuesday). 2. Ensure patient has someone to stay with him at home (girlfriend confirmed). 3. Assess need for home equipment (e.g., bedside potty). 4. Obtain recent labs from [facility] to check to see if pt. had recent thrombocytopenia. 5. Investigate cause of thrombocytopenia, considering potential autoimmune destruction or hypersplenism. 6. Consider test for autosplenectomy (specific test to be researched). 7. Continue monitoring platelet count, hemoglobin, and bilirubin levels. 8. Follow up on chest x-ray findings of right upper lung pneumonia. 9. Encourage increased mobility and improved nutrition intake. (7) Elevated LFTs: Status: Resolved Plan: Continue daily monitoring to make sure the patient's LFTs are not changing. (8) Hypoalbuminemia: Status: Acute Plan: Continue Megace 40 mg p.o. twice daily was started to help get the patient's protein and albumin levels increased. We will plan on giving the patient IV albumin again today but after today we will plan on discontinuing it. (9) Elevated brain natriuretic peptide (BNP) level: Status: Acute Plan: Repeat BMP again tomorrow as well as chest x-ray. We will diurese if needed. (10) Glaucoma: Status: Acute Plan: Continue dorzolamidetimolol ophthalmic drops. (11) Hyperglycemia: Status: Acute Plan: Check hemoglobin A1c for tomorrow morning. (12) History of malignant neoplasm of prostate: Status: Acute (13) Hx of prostatectomy: Status: Acute Plan: Plan/Recommendations Plan to continue monitoring Rajesh's hemoglobin and platelet levels. We will transfuse the patient with 1 unit of packed red blood cells today and premedicating with Tylenol and Benadryl. We will check Vitamin B12 and folate levels to rule out deficiencies contributing to macrocytosis. Rajesh's nutr itional intake will be emphasized to assist in infection recovery and strength. Encourage him to sit up in a chair today as part of his recovery. Protonix will be increased to 40 mg IV BID due to changes in his hemoglobin levels. Since the patient is still not eating a lot I will start him on Megace 40 mg twice daily. (14) Hyperbilirubinemia: Status: Resolved Plan: Follow daily total bilirubin levels.
[2024-09-30] MEDS: ZITHROMAX TAB 250 MG PO SCH (20:32)
[2024-10-01 00:11] VITALS: RESP 22
[2024-10-01 05:14] LABS: BASOPHILS % (AUTO) 0.4 % (0.2-1.0); EOSINOPHILS # (AUTO) 0.1 x10^3/uL (0.0-0.2); EOSINOPHILS % (AUTO) 1.6 % (0.9-2.9); HEMATOCRIT 24.7 % (42.0-54.0); HEMOGLOBIN 8.4 g/dL (13.5-18.0); LYMPHOCYTES # (AUTO) 1.6 X10^3/uL (1.3-2.9); LYMPHOCYTES % (AUTO) 30.3 % (21.0-51.0); MEAN CORPUSCULAR HEMOGLOBIN 34.7 pg (27.0-34.0); MEAN CORPUSCULAR HGB CONC 34.2 g/dL (33.0-35.0); MEAN CORPUSCULAR VOLUME 101.7 fL (80.0-100.0); MONOCYTES # (AUTO) 0.4 x10^3/uL (0.3-0.8); MONOCYTES % (AUTO) 7.9 % (0.0-13.0); NEUTROPHILS # (AUTO) 3.2 x10^3/uL (2.2-4.8); NEUTROPHILS % (AUTO) 59.8 % (42.0-75.0); PLATELET COUNT 36 X10^3/uL (150.0-450.0); RED BLOOD COUNT 2.43 X10^6/uL (4.7-6.0); RED CELL DISTRIBUTION WIDTH 15.3 % (11.6-16.5); WHITE BLOOD COUNT 5.4 X10^3/uL (3.6-10.0)
[2024-10-01 05:20] LABS: ALANINE AMINOTRANSFERASE 65 Units/L (12-78); ALBUMIN 2.7 g/dL (3.4-5.0); ALKALINE PHOSPHATASE 86 Units/L (46-116); ASPARTATE AMINO TRANSFERASE 25 Units/L (15-37); BLOOD UREA NITROGEN 16 mg/dL (7-18); CALCIUM 8.5 mg/dL (8.5-10.1); CARBON DIOXIDE 24.5 mmol/L (21-32); CHLORIDE 106 mmol/L (98-107); COR CA(FOR HYPOALB) 9.5 mg/dL (8.5-10.1); CREATININE 1.14 mg/dL (0.70-1.30); GLUCOSE 102 mg/dL (65-99); POTASSIUM 4.1 mmol/L (3.5-5.1); SODIUM 139 mmol/L (136-145); TOTAL PROTEIN 6.5 g/dL (6.4-8.2); eGFR NON BLACK RACES > 60 (>60)
--- NOTE | 2024-10-01 09:02 | RAD ---
EXAM: Portable AP chest HISTORY: Pneumonia COMPARISON: 09/30/2024 FINDINGS: There is no change in appearance of heart or lungs. Similar distribution of right upper lobe airspa ce consolidation. No new abnormality identified. IMPRESSION: No change. THIS IS AN ELECTRONICALLY VERIFIED FINAL REPORT 10/01/2024 8:59 AM - Electronically signed by Babar Robertson MD
[2024-10-01 09:25] VITALS: BP 125/56; TEMP 97.9
[2024-10-01 10:03] VITALS: PULSE 87; O2SAT 97
[2024-10-01] MEDS ORDERED: PHARMACY COMMENT IV NR (11:00)
== END 2024-10-01 11:30 | disposition home or self-care (01) | DRG 194 ==
LOC: ER 14:10 → ICU 14:10 → OBSVTOIN 19:49 → ICU 20:52
PROVIDERS: ADMIT Family Medicine; ATTEND Family Medicine
DX: R26.89 Other abnormalities of gait and mobility; R94.31 Abnormal electrocardiogram [ECG] [EKG]; B37.89 Other sites of candidiasis; K21.9 Gastro-esophageal reflux disease without esophagitis; Z29.89 Encounter for other specified prophylactic measures; D69.6 Thrombocytopenia, unspecified; E86.0 Dehydration; E88.09 Other disorders of plasma-protein metabolism, not elsewhere classified; R06.02 Shortness of breath; E80.6 Other disorders of bilirubin metabolism; Z85.46 Personal history of malignant neoplasm of prostate; J18.8 Other pneumonia, unspecified organism; Z03.818 Encounter for observation for suspected exposure to other biological agents ruled out; R79.89 Other specified abnormal findings of blood chemistry; R73.09 Other abnormal glucose; R94.5 Abnormal results of liver function studies; B96.3 Hemophilus influenzae [H. influenzae] as the cause of diseases classified elsewhere; R53.1 Weakness; J90 Pleural effusion, not elsewhere classified; R79.82 Elevated C-reactive protein (CRP); I10 Essential (primary) hypertension; Z90.79 Acquired absence of other genital organ(s); I48.91 Unspecified atrial fibrillation